=== PATIENT | female | born 1955 | race Caucasian/White ===

== ENCOUNTER → 2020-03-13 10:15 | Outpatient (BNVA) | payer OTHER, SELFPAY | PROVIDERS: PCP Internal Medicine; Visit Provider Surgery | DX: Z01.818 Encounter for other preprocedural examination (principal); E66.01 Morbid (severe) obesity due to excess calories; Z68.42 Body mass index [BMI] 45.0-49.9, adult; R06.02 Shortness of breath | CPT/HCPCS: 99202 ==

== ENCOUNTER 2020-03-19 07:33 | Outpatient (REF) | payer OTHER, SELFPAY ==
--- NOTE | ~2020-03-19 | XR_ITS ---
EXAMINATION: XR CHEST CLINICAL INFORMATION: R06.02 - Shortness of breath COMPARISON: None TECHNIQUE: 2 views of the chest were obtained. FINDINGS: There is fine linear scar versus disc atelectasis left lateral base at costophrenic angle. The lungs otherwise clear. There is no hyperinflation. The vascularity is normal. There is no airspace consolidation or groundglass opacity or effusion. The heart is normal in size and the hilar and mediastinal contours are normal. Bony structures show dextrocurvature thoracolumbar spine with mild multilevel degenerative changes. There are surgical clips right upper quadrant abdomen likely from prior cholecystectomy. XR/XR chest 2V IMPRESSION: 1. Fine linear scar versus disc atelectasis left lateral base. 2. Lungs otherwise clear. Vascularity unremarkable.
--- NOTE | 2020-03-19 07:57 | ECG_ITS ---
Test Reason : SOB Blood Pressure : / mmHG Vent. Rate : 071 BPM Atrial Rate : 071 BPM P-R Int : 148 ms QRS Dur : 092 ms QT Int : 392 ms P-R-T Axes : 059 003 002 degrees QTc Int : 425 ms Normal sinus rhythm Normal ECG No previous ECGs available Referred By: Luz Brewer Electronically Signed By:YOANNA WATSON MD
[2020-03-19 08:09] LABS: MANUAL DIFF FLAG NO
[2020-03-19 08:21] LABS: Basophils Percent Auto 0.7 % (0-2); Eosinophils Absolute Auto 0.1 X10*3/uL (0.0-0.4); Eosinophils Percent Auto 1.3 % (0-4); Hematocrit 42.5 % (37-47); Hemoglobin 14.1 g/dl (12.0-16.0); Imm Gran Abs Auto 0.01 X10*3/uL (0.00-0.03); Imm Gran Pct Auto 0.2 % (0.0-0.4); Lymphocytes Absolute Auto 2.3 X10*3/uL (1.2-4.9); Lymphocytes Percent Auto 43.1 % (20-40); Mean Corpuscular HGB Conc 33.2 g/dl (31.0-35.0); Mean Corpuscular Volume 87.3 fL (80-98); Mean Platelet Volume 9.9 fL (9.4-12.3); Monocytes Absolute Auto 0.4 X10*3/uL (0.1-1.2); Monocytes Percent Auto 7.6 % (2-11); Neutrophils Absolute Auto 2.5 X10*3/uL (2.0-8.3); Neutrophils Percent Auto 47.1 % (45-73); Platelet Count 279 X10*3/uL (160-400); Red Blood Count 4.87 X10*6/uL (4.20-5.50); Red Cell Distribution Width 13.4 % (11.0-16.0); White Blood Count 5.4 X10*3/uL (4.8-10.8)
[2020-03-19 09:04] LABS: Alanine Aminotransferase 27 U/L (0-31); Albumin Level 4.5 g/dL (3.5-5.0); Alkaline Phosphatase 94 U/L (39-117); Anion Gap 11 (12-20); Aspartate Amino Transferase 29 U/L (5-31); Bilirubin Total 0.7 mg/dL (0.0-1.0); Blood Urea Nitrogen 15 mg/dL (9-16); C Reactive Protein 0.54 mg/dL (< or = 0.50); Calcium 9.2 mg/dL (8.4-10.2); Carbon Dioxide 29 mmol/L (22-29); Chloride 106 mmol/L (96-108); Cholesterol 239 mg/dL; Estimated Glomerular Filt Rate > 60; Glucose Fasting 107 mg/dL (60-99); HDL Cholesterol 42 mg/dL; Iron 63 mcg/dL (30-160); LDL Cholesterol Calculated 171 mg/dl; Percent Iron Saturation 16 % (15-50); Potassium 4.4 mmol/L (3.3-5.1); Sodium 142 mmol/L (135-145); Total Iron Binding Capacity 385 mcg/dL (228-428); Total Protein 7.5 g/dL (6.5-8.0); Triglycerides 131 mg/dL; Unsaturated Iron Binding 322 ug/dL
[2020-03-19 09:11] LABS: Vitamin D 25-OH Total 12.2 ng/mL (>30)
[2020-03-19 09:14] LABS: Vitamin B12 268 pg/mL (200-900)
[2020-03-20 11:47] LABS: Calcium (PTHI) 9.5 mg/dL (8.6-10.4); PTHI 109 pg/mL (14-64)
[2020-03-23 06:07] LABS: Vitamin B1 6 nmol/L (8-30)
[2020-03-23 16:47] LABS: Zinc 66 mcg/dL (60-130)
[2020-03-23 21:06] LABS: Vitamin A 39 mcg/dL (38-98)
== END 2020-03-19 07:34 | disposition home or self-care (01) ==
LOC: HO.LAB 07:33
PROVIDERS: PCP Internal Medicine; Visit Provider Surgery
DX: Z01.818 Encounter for other preprocedural examination (principal); E66.01 Morbid (severe) obesity due to excess calories; Z68.42 Body mass index [BMI] 45.0-49.9, adult; R06.02 Shortness of breath
CPT/HCPCS: 36415; 71046; 80053; 80061; 82306; 82607; 83540; 83970; 84425; 84443; 84590; 84630; 85025; 86140; 93005; 99211; Q3014

== ENCOUNTER 2020-03-20 15:04 | Outpatient (REF) | payer OTHER, SELFPAY ==
[2020-03-21 13:51] LABS: H Pylori Breath Test NOT DETECTED (NOT DETECTED)
== END 2020-03-20 15:05 | disposition home or self-care (01) ==
LOC: HO.LNP 15:04
PROVIDERS: Visit Provider Surgery
DX: Z01.818 Encounter for other preprocedural examination (principal)
CPT/HCPCS: 83013

== ENCOUNTER → 2020-04-02 08:20 | Outpatient (BNVA) | payer OTHER, SELFPAY | PROVIDERS: PCP Internal Medicine; Visit Provider Dietitian, Registered ==

== ENCOUNTER → 2020-04-06 08:26 | Outpatient (BNVA) | payer OTHER, SELFPAY | PROVIDERS: PCP Internal Medicine; Visit Provider Dietitian, Registered ==

== ENCOUNTER → 2020-04-16 13:38 | Outpatient (BNVA) | payer OTHER, SELFPAY | PROVIDERS: PCP Internal Medicine; Visit Provider Surgery | DX: E66.01 Morbid (severe) obesity due to excess calories (principal); Z68.41 Body mass index [BMI] 40.0-44.9, adult | CPT/HCPCS: 99212 ==

== ENCOUNTER → 2020-05-04 10:50 | Outpatient (BNVA) | payer OTHER, SELFPAY | PROVIDERS: PCP Internal Medicine; Visit Provider Surgery | DX: E66.01 Morbid (severe) obesity due to excess calories (principal); Z68.41 Body mass index [BMI] 40.0-44.9, adult | CPT/HCPCS: 99212 ==

== ENCOUNTER → 2020-05-08 13:37 | Outpatient (BNVA) | payer OTHER, SELFPAY | PROVIDERS: PCP Internal Medicine; Visit Provider Physician Assistant ==

== ENCOUNTER → 2020-05-19 14:00 | Outpatient (BNVA) | payer OTHER, SELFPAY | PROVIDERS: PCP Internal Medicine; Visit Provider Surgery | DX: Z01.818 Encounter for other preprocedural examination (principal); E66.01 Morbid (severe) obesity due to excess calories; R06.02 Shortness of breath; Z68.41 Body mass index [BMI] 40.0-44.9, adult | CPT/HCPCS: 99212 ==

== ENCOUNTER 2020-05-29 11:42 | Outpatient (REF) | payer OTHER, SELFPAY ==
[2020-05-29 11:59] LABS: Glucose Urine UA NEG (NEG); Leukocyte Esterase Urine NEG (NEG); Nitrite Urine NEG (NEG); Specific Gravity - Urine <= 1.005 (1.005-1.025); Urine Blood NEG (NEG); Urine Ketones NEG (NEG); Urine Protein NEG (NEG-TRACE)
[2020-05-29 12:01] LABS: Appearance Urine HAZY; Color Urine YELLOW
== END 2020-05-29 11:43 | disposition home or self-care (01) ==
LOC: HO.LNP 11:42
PROVIDERS: Visit Provider Surgery
DX: Z01.818 Encounter for other preprocedural examination (principal)
CPT/HCPCS: 81003

== ENCOUNTER 2020-06-03 05:55 | Inpatient (IN) | payer OTHER, SELFPAY ==
[2020-05-19 15:08] LABS: MANUAL DIFF FLAG NO
[2020-05-19 15:10] LABS: Basophils Percent Auto 0.5 % (0-2); Eosinophils Absolute Auto 0.1 X10*3/uL (0.0-0.4); Eosinophils Percent Auto 0.9 % (0-4); Hematocrit 42.9 % (37-47); Hemoglobin 14.9 g/dl (12.0-16.0); Imm Gran Abs Auto 0.01 X10*3/uL (0.00-0.03); Imm Gran Pct Auto 0.1 % (0.0-0.4); Lymphocytes Absolute Auto 2.8 X10*3/uL (1.2-4.9); Lymphocytes Percent Auto 38.3 % (20-40); Mean Corpuscular HGB Conc 34.7 g/dl (31.0-35.0); Mean Corpuscular Hemoglobin 30.1 pg (27.0-33.0); Mean Corpuscular Volume 86.7 fL (80-98); Monocytes Absolute Auto 0.4 X10*3/uL (0.1-1.2); Monocytes Percent Auto 5.9 % (2-11); Neutrophils Percent Auto 54.3 % (45-73); Platelet Count 262 X10*3/uL (160-400); Red Blood Count 4.95 X10*6/uL (4.20-5.50); Red Cell Distribution Width 13.3 % (11.0-16.0); White Blood Count 7.4 X10*3/uL (4.8-10.8)
[2020-05-19 15:16] LABS: INTERNATIONAL NORM RATIO 1.1 (0.9-1.1); Prothrombin Time 12.8 SEC (10.8-13.0)
[2020-05-19 15:27] LABS: Partial Thromboplastin Time 40.3 SEC (24.1-38.0)
[2020-05-19 15:35] LABS: Albumin Level 4.4 g/dL (3.5-5.0); Anion Gap 12 (12-20); Blood Urea Nitrogen 14 mg/dL (9-16); Calcium 9.5 mg/dL (8.4-10.2); Carbon Dioxide 25 mmol/L (22-29); Chloride 108 mmol/L (96-108); Estimated Glomerular Filt Rate > 60; Glucose Random 117 mg/dL (60-115); Potassium 3.9 mmol/L (3.3-5.1); Sodium 141 mmol/L (135-145)
[2020-05-26 10:47] VITALS: BMI 41.3
--- NOTE | 2020-05-31 13:06 | MHC.SHP ---
Pre-Procedural Eval Section B Chief Complaint: obesity Allergies: Allergies Allergy/AdvReac Type Severity Reaction Status Date / Time Iodinated Contrast Media Allergy Severe Shortness Verified 05/19/20 14:31 of Breath sulfamethoxazole Allergy Severe Rash Verified 05/19/20 14:31 [From Bactrim] trimethoprim [From Bactrim] Allergy Severe Rash Verified 05/19/20 14:31 Plan I have reviewed the history and physical and performed a pertinent physical examination on my patient. No changes have occurred unless specified.
[2020-06-03] VITALS (17 sets, daily range): BP systolic 138–188; BP diastolic 64–90; PULSE 71–105; RESP 12–19; TEMP 35.8–36.6; O2SAT 90–100
[2020-06-03] MEDS: Lactated Ringers 1,000 ML 100 ML IVCONT (06:41)
[2020-06-03 06:52] LABS: COVID-19 Test Negative (Negative); IDNOW Serial# 9DD0AD1C
--- NOTE | 2020-06-03 11:48 | P.BOP_ITS ---
Brief Operative Note Date of Service: 06/03/20 Pre-op diagnosis: Morbid obesity, BMI 41.3, hypertension, hypercholesterolemia Post-op diagnosis: same Procedure: Laparoscopic Indra-en-Y gastric bypass with 150 cm Indra limb, intraoperative endoscopy, and Alonzo block Implants: None Surgeon: Luz Brewer MD Anesthesia: GETA Dispatcher Radioactive Waste Disposal: Larisa Solorzano Estimated blood loss (mL): 5 Pathology: none sent Condition: stable Disposition: PACU
--- NOTE | 2020-06-03 11:50 | P.OP_ITS ---
Operative Note Operative Note Date of Service: 06/03/20 Narrative: Patient was brought into the operating room and placed on the operating room table in the supine position. General anesthesia was induced. Normal DVT prophylaxis was instituted and the patient received 2 grams of cefotetan preoperatively. The abdomen was then prepped and draped in the normal sterile fashion. A safety time-out was performed. A mixture of 1% lidocaine with epinephrine and ?% Marcaine plain was used to an esthetize the planned incision site in the left upper quadrant. A #11 scalpel was used to make a 5 mm left upper quadrant transverse incision through which a veress needle was placed. Three pops were heard going through the fascia. A saline drop test was used to confirm that the veress needle was intraabdominal. An optiview technique was then used to place a 5mm port in the left upper quadrant. A 5 mm 30 degree laproscope was then placed through this port and the abdominal cavity was surveyed and there were several dense adhesions of the omentum to the right upper quadrant. We placed an additional 5 mm port in the left upper quadrant lateral to the placement the 1st port. We used a LigaSure device to take down these adhesions on the right upper quadrant. The patient was placed in reverse Trendelenburg positioning. A torey liver retractor was then placed in the subxyphoid position and it was used to hold up the left lobe of the liver to the abdominal wall. This was secured to the bed using the liver retractor boudreaux. A GENE block was then performed for pain control on the right side of the abdomen. A 5 mm port was placed in the right upper quadrant near the falciform ligament. A 12 mm port was then placed in the mid epigastrium. I then performed a GENE block on the left side of the abdomen. We lifted up the transverse colon mesentery and visualized the ligament of Triet z. I then counted 40 cm from the ligament of Trietz and created a small window in the small bowel mesentery. I then stapled across the antimesenteric surface of the small bowel at the at the 40 cm reian. The proximal limb is the biliopancreatic limb and the distal transected bowel will be the flavio limb. I divided the mesentery at the 40 cm reina parallel to the blood vessels in the mesentery for a short distance to be able to bring up the flavio limb to the gastric pouch later. I counted 150 cm from the distally transected bowel and sutured the the flavio limb at 150 cm to the biliopancreatic limb using the endostich and a 2-0 ethibond. I then created 2 enterotomies in the lined up limbs of bowel using the hook cautery. I lengthened the enterotomies using the ligasure device and created a common anastomosis using a 60 mm pool load endostapler. I stapled the common enterotomy transversely to prevent stricture. I then closed the mesenteric defect at the anastomosis with a 2-0 ethibond running endostich suture. I then created the gastric pouch. I divided the adhesions from the previous gastric sleeve. I also evaluated the right and left for and there was no definitive hiatal hernia noted. There was no evidence of hiatal hernia. I gained entry into the lesser sac on the lesser curvature of the stomach by dividing a portion of the pars lucida. I fired a 60 mm purple endostapler transversely across the previous gastric sleeve about 5 cm distal to the GE junction which completed the creation of the new gastric pouch. The staple line was hemostatic. I brought the flavio limb up to the gastric pouch and sutured the flavio limb serosa to the gastric pouch serosa posterior to the transverse staple line using a 2-0 ethibond running stitch using the endostitch. I created a gastrotomy and enterotomy in the adjacent flavoi limb. I lengthened the gastrotomy and enterotomy using the ligasure. I sutured the posterior wall of the stomach and the flavio limb together using a 0 vicryl running stitch. I sutured the anterior wall of the stomach and flavio limb together using another running 0-vicryl stitch. The the anterior serosa of stomach and flavio limb were sutured using a 2-0 ethibond running stitch for a double layer anterior and posterior closure of the gastrojejunostomy. I then clamped across the flavio limb distal to the anastomosis using a fired 60 mm stapler. I flatted the patient and instilled normal saline around the new anastomosis. I per formed an on-talbe endoscopy. The gastric pouch mucosa was pink without any active bleeding the anastomosis was visably patent. I insufflated the gastric pouch and anastomosis. There was no evidence of leak on laparoscopy. I desufflated the gastric pouch and removed the endoscopy. I removed the endostapler from the abdomen and suctioned the fluid from the left upper quadrant. We did not leave a Christiano-Browning drain. We removed the 12 mm port and closed the defect with a 0 maxon suture and laparoscopic suture passer. We instilled local anesthetic into the fascial closure site and tied the suture down at a pressure of 8-10 mm of Hg. I removed the torey liver retractor and the left upper quadrant ports. There was no evidence active bleeding. I removed the last port and laparoscopy. We reapproximated all skin incisions using 4-0 monocryl subcuticular stitch. We cleaned and dried the skin and applied dermabond to all skin incisions. All counts were correct at the end of the case . There were no complications. The patient was awake and in stable condition prior to extubation and transfer to the recovery room.
--- NOTE | 2020-06-03 12:00 | PM.PNGS ---
Subjective Subjective Date of Service: 06/04/20 <Larisa Solorzano PA-C - Last Filed: 06/04/20 16:50> 06/04/20 <Luz Brewer MD - Last Filed: 06/04/20 09:28> Interval history: POD #1: Patient is doing well. Has been ambulating, using the incentive spirometer, and tolerating po liquids. No nausea or abdominal pain. Has some mild incisional pain. <Larisa Solorzano PA-C - Last Filed: 06/04/20 16:50> Pod #1 s/p lap conversion to sleeve gastrectomy to Indra-en-Y gastric bypass. Doing well with the exception of some mild nausea that is improving.. Tolerating stage 2 diet, ambulating in her room. Pain well controlled. Denies vomiting. Vitals and labs reviewed and are within limit for post op day 1. On exam, patient is well appearing, abdomen is soft, nd, mild appropriate incisional tenderness. Incisions c/d/I with dermabond in place. Plan: Patient will be given 4 mg of IV dexamethasone to help with nausea. She will continue stage II diet advanced to stage III diet if her nausea improves. Patient will then likely be discharged home later this morning or this afternoon once she is tolerating stage III diet. <Luz Brewer MD - Last Filed: 06/04/20 09:28> Physical Exam Vital Signs: Vital Signs: Last Vital Signs Temp 97.7 F 06/03/20 11:39 Pulse 97 06/03/20 11:49 Resp 16 06/03/20 11:49 BP 172/90 H 06/03/20 11:49 Pulse Ox 96 06/03/20 11:49 Body Mass Index 41.3 <Larisa Solorzano PA-C - Last Filed: 06/04/20 16:50> Const: General: cooperative, comfortable, no acute distress, alert and awake <Larisa Solorzano PA-C - Last Filed: 06/04/20 16:50> Nutritional Appearance: obese <Larisa Solorzano PA-C - Last Filed: 06/04/20 16:50> GI: Inspection: Yes normal to inspection, Yes incision (normal, slight erythema at site of surgical glue, no tenderness/warmth/drai) and Yes obesity <VERO Lakhani Last Filed: 06/04/20 16:50> Extrem: Right lower extremity: lower leg Details: no tenderness; no edema <VERO Lakhani Last Filed: 06/04/20 16:50> Left lower extremity: lower leg Details: no tenderness; no edema <VERO Lakhani Last Filed: 06/04/20 16:50> Progress Note: A&P Assessment and plan (1) Morbid obesity due to excess calories: Status: Acute <VERO Lakhani Last Filed: 06/04/20 16:50> (2) Intestinal malabsorption following gastrectomy: Status: Acute <VERO Lakhani Last Filed: 06/04/20 16:50> (3) S/P gastric bypass: Status: Acute <VERO Lakhani Last Filed: 06/04/20 16:50> (4) S/P laparoscopic sleeve gastrectomy: Status: Acute <VERO Lakhani Last Filed: 06/04/20 16:50> Assessment and Plan: POD #1: Patient is doing well and will be discharged home today. All the discharge instructions were reviewed with the patient and given in writing. Patient will follow up as scheduled in 2 weeks. <VERO Lakhani Last Filed: 06/04/20 16:50> Fall Risk Details Current Medications: Current Medications Generic Name Dose Route Start Last Admin Trade Name Freq PRN Reason Stop Dose Admin Enalaprilat 0.625 mg 06/03/20 12:00 Enalaprilat Dihydrate 1.25 Mg/Ml Vial IVPUSH Q6H ANDREW Protocol Lactated Ringer's 1,000 mls @ 100 mls/hr 06/03/20 08:00 06/03/20 06:41 Lr IVCONT 100 mls/hr .Q10H ANDREW Administration <VERO Lakhani Last Filed: 06/04/20 16:50> Time Spent With Patient Time: Total time spent is greater than 50% in coordination of care (as documented) at patient's floor/unit and/or counseling patient: <Larisa Solorzano PA-C - Last Filed: 06/04/20 16:50> Time with patient: less than 15 minutes <Luz Brewer MD - Last Filed: 06/04/20 09:28>
--- NOTE | 2020-06-03 12:02 | P.DS_ITS ---
DS: Providers Provider Date of Service: 06/04/20 Date of admission: 06/03/20 05:55 Primary care physician: Gladys Smith MD DS: Diagnosis Discharge Diagnosis (1) Morbid obesity due to excess calories: Status: Acute (2) Intestinal malabsorption following gastrectomy: Status: Acute (3) S/P gastric bypass: Status: Acute (4) S/P laparoscopic sleeve gastrectomy: Status: Acute DS: Medications Discharge Medications Home Medications: Home Medications Medication Instructions Recorded Confirmed amlodipine 10 mg tablet 10 mg PO DAILY 03/13/20 05/26/20 atorvastatin 40 mg tablet 40 mg PO DAILY 03/13/20 05/26/20 citalopram 40 mg tablet 20 mg PO DAILY 03/13/20 05/26/20 clonazepam 1 mg tablet 1 mg PO BEDTIME 03/13/20 05/26/20 cyanocobalamin (vitamin B-12) 500 500 mcg PO DAILY 03/13/20 05/26/20 mcg tablet hydrochlorothiazide 25 mg tablet 25 mg PO DAILY 03/13/20 05/26/20 lisinopril 40 mg tablet 40 mg PO DAILY 03/13/20 05/26/20 multivitamin with minerals-folic 1 tab PO DAILY 03/13/20 05/26/20 acid 80 mcg chewable tablet oxcarbazepine 300 mg tablet 300 mg PO BID 03/13/20 05/26/20 quetiapine 50 mg tablet 50 mg PO BEDTIME 03/13/20 05/26/20 albuterol sulfate 90 mcg/actuation 1 inh INHALATION QID PRN 05/04/20 05/26/20 aerosol inhaler albuterol sulfate 2.5 mg INHALATION Q4H PRN 05/26/20 05/26/20 quetiapine [Seroquel] 200 mg PO BEDTIME 05/26/20 05/26/20 Previous Rx's Medication Instructions Recorded cholecalciferol (vitamin D3) 1,250 1,250 mcg PO QWEEK #4 cap 03/19/20 mcg (50,000 unit) capsule famotidine 20 mg tablet 20 mg PO DAILY #30 tab 05/19/20 ondansetron HCl 4 mg tablet 4 mg PO Q6H PRN #30 tab 05/19/20 DS: Summary Time Spent with Patient Time attestation: Total time spent providing and/or coordinating discharge services: Discharge coordination time: Greater than 30 minutes Physical Exam Vital Signs: Vital Signs: Last Vital Signs Temp 97.7 F 06/03/20 11:39 Pulse 94 06/03/20 11:54 Resp 16 06/03/20 11:54 BP 172/86 H 06/03/20 11:54 Pulse Ox 95 06/03/20 11:54 Body Mass Index 41.3 DS: Data Data Completed and Pending Labs on day of discharge: Laboratory Results - last 24 hr 06/03/20 06:08 COVID-19 ([facility]) Negative COVID-19 Clin Com See Note Discharge Plan Discharge Patient Disposition: Home, Self-Care Discharge Diagnosis: obesity and GERD s/p conversion to LRYGB Referrals: Gladys Smith MD [Primary Care Provider] - 1 Week Discharge Medications: Continued cholecalciferol (vitamin D3) 1,250 mcg (50,000 unit) capsule 1,250 mcg PO QWEEK Qty: 4 RF: 2 albuterol sulfate 2.5 mg /3 mL (0.083 %) solution for nebulization 2.5 mg inhalation Q4H PRN (Reason: Shortness Of Breath) RF: 0 quetiapine [Seroquel] 200 mg Tablet 200 mg PO BEDTIME RF: 0 lisinopril 40 mg tablet 40 mg PO DAILY RF: 0 amlodipine 10 mg tablet 10 mg PO DAILY RF: 0 hydrochlorothiazide 25 mg tablet 25 mg PO DAILY RF: 0 atorvastatin 40 mg tablet 40 mg PO DAILY RF: 0 quetiapine 50 mg tablet 50 mg PO BEDTIME RF: 0 oxcarbazepine 300 mg tablet 300 mg PO BID RF: 0 citalopram 40 mg tablet 20 mg PO DAILY RF: 0 multivit with min-folic acid 80 mcg tablet,chewable 1 tab PO DAILY RF: 0 cyanocobalamin (vitamin B-12) 500 mcg tablet 500 mcg PO DAILY RF: 0 clonazepam 1 mg tablet 1 mg PO BEDTIME RF: 0 albuterol sulfate 90 mcg/actuation HFA aerosol inhaler 1 inh inhalation QID PRN (Reason: Shortness Of Breath) RF: 0 famotidine [Pepcid AC] 20 mg tablet 20 mg PO DAILY Qty: 30 RF: 1 ondansetron HCl [Zofran] 4 mg tablet 4 mg PO Q6H PRN (Reason: nausea and vomiting) Qty: 30 RF: 1 Discharge Orders: Discharge Order (Routine); Ordered 06/04/20 Ordered By: Luz Brewer Diet: other Activity on Discharge: No heavy lifting Stand Alone Forms: Patient Portal Discharge page Activity Restrictions/Additional Instructions: Discharge Instructions 1. Please call your doctor or come back to the emergency room should any new symptoms arise. 2. You will receive a courtesy call from [facility] 24-48 hours after discharge. 3. Activity: abstain from alcohol, practice limited stair climbing, no bending, no driving, no exercise, no illicit substances, no lifting, no sex, no tub bath, no work. 4. Diet: continue stage 3 protein shakes until your [address] Brewer. 5. Dressing Change/Wound Care: Your incision is covered by surgical glue. If the area is tender, you may apply an ice pack for short intervals (no more than 20 minutes on, followed by at least 20 minutes off). Do not apply heat. Do not use creams, lotions, or topical antibiotics unless instructed to do so by your surgeon. These can cause infection or allergic reaction. 6. Call your doctor if: - Your temperature exceeds 101.5 F - You experience excessive pain or swelling - You have an unexpected reaction to medication - You have excessive bleeding - You experience continued vomiting/nausea - Your incision begins to separate - Your incision shows signs of infection such as increased redness, swelling, excessive pain, heat, or drainage (light blood or clear fluid is normal) 7. General instructions: - No lifting greater than 5 lbs for the next 4 weeks. - No driving within 24 hours of taking narcotic pain medications. - If you do not move your bowels in the next 2 days, please take milk of magnesia over the counter. Please follow the post op diet and do not advance your diet until you are seen in the office in about 2 weeks. - Please walk around your home every hour or two to prevent blood clots from forming in your legs. You do not need to wake from sleeping to walk. - Please sleep in a bed or couch to prevent kinking at the hips and knees. - Please take your incentive spirometer (your lung extension service specialist) home with you and use it for the next few days to prevent pneumonias. - You may shower, no hot tubs, baths or swimming pools. - Please call the office with any questions or concerns such as increasing abdominal pain, fever, chills, shortness of breath, chest pain, leg pain or swelling, or redness or drainage from your incisions. - Please stay on stage 3 diet which includes sugar free clear liquids such as ice pops and jello and broth and crystal light. Avoid all carbonation. Please drink 3 protein shakes with at least 25-30 grams of protein daily or 3 of the Celebrate 4:1 shakes which can be purchased in our office. The Celebrate shakes have all of the bariatric vitamins you need if you consume these shakes. If you are drinking other protein shakes, you will need to purchase the Celebrate multivitamins and calcium that we provide in the office (they will provide all the vitamins you need). Please make sure you are consuming at least 40-60 ounces of water in addition to your 3 protein shakes daily. 8. Do not hesitate to contact the office with any questions at . Discharge Summary Date of Service: 06/04/20 Pre-op diagnosis: Morbid obesity, BMI 41.3, hypertension, hypercholesterolemia Post-op diagnosis: same Procedure: Laparoscopic Indra-en-Y gastric bypass with 150 cm Indra limb, intraoperative endoscopy, and Alonzo block Discharge Medications: 1. Simethicone 80mg tablet chewable (Si tablet every 6 hours orally for 7 days, #28, 1 RF) q4h prn gas 2. Acetaminophen 500 mg tablet (Si tablets as needed every 6 hours orally for 30 days, #240, 0 RF) 3. Ondansetron 4 mg tablet disintegrating (Si tablet every 6 hours orally for 7 days, #28, 1 RF) 4. Colace 100 mg capsule (Si capsule twice a day for 30 days, #60, 2 RF) 5. Pepcid 20 mg chewable tablet (Si tablet twice a day for 30 days, #60, 3 RF) Discharge Instructions: The patient should continue on the stage III bariatric diet, which includes 3 protein shakes of at least 20-30g of protein on a daily basis. The patient was encouraged to avoid drinking liquids with her protein shakes. They should wait 30-45 minutes in between her meals and drinking water. She should drink at least 40-60 ounces of water on a daily basis. They should ambulate while at home to avoid any blood clots in her lower extremities. They should call with any questions or concerns such as increase in abdominal pain, persistent nausea, vomiting, redness and drainage from her incisions, fever, chills, shortness of breast, or chest pain beyond what is normal for her. The patient should avoid all heavy lifting greater than 5 pounds for the next 4 weeks. The patient is already scheduled to follow up with me in 2 weeks time, but should call the office with any questions prior to that follow up appointment. The patient should not advance their diet until they are seen in the office for the 2 week appointment. Hospital Course: The patient was admitted after undergoing SURGERY. They were started on stage II (1 oz of fluid every 15 minutes) on POD #0. The next morning they were evaluated and started on stage III diet (protein shakes). All labs were within normal limits. On post-operative day #1 she was feeling better, nausea and epigastric pain improved and they were tolerating stage III bariatric diet well. The patient was discharged home. Discharge Disposition: Home. Care Plan Goals: weight loss management s/p LRYGB Health Concerns: obesity, GERD Plan of Treatment: conversion to LRYGB Assessment: doing well POD #1, discharged home Discharge Date/Time: 06/04/20 13:19
[2020-06-03] MEDS: Famotidine/PF 20 MG/2 ML VIAL IVPUSH ×2 (12:16→20:35)
--- NOTE | 2020-06-03 12:37 | P.CONAN_ITS ---
HPI - Anesthesia Eval Consult details Narrative: Morbid Obesity [facility] Active Problems Active Problems: All Active Problems (Updated 06/03/20 @ 12:01 by Larisa Sloorzano PA-C) S/P laparoscopic sleeve gastrectomy (Acute) S/P gastric bypass (Acute) Intestinal malabsorption following gastrectomy (Acute) Shortness of breath (Acute) Pre-op evaluation (Acute) Morbid obesity due to excess calories (Acute) BMI 45.0-49.9, adult (Acute) Vitamin D deficiency (Acute) Vitamin B1 deficiency (Acute) BMI 40.0-44.9, adult (Acute) Past Medical History Medical History Anxiety Arthritis Asthma COVID-19 vaccine administered Depression HTN (hypertension) Hypercholesterolemia Intestinal malabsorption following gastrectomy Urinary tract infection Uterine anomaly Family History Family History Father Heart problem Heart attack Mother CHF (congestive heart failure) Hypertension High cholesterol Diabetes mellitus Knee problem Sister High cholesterol Hypertension Sister Hypertension Diabetes mellitus COPD (chronic obstructive pulmonary disease) Sister Heart problem Heart attack Diabetes mellitus Hypertension Wheelchair bound Morbidly obese Sister COPD (chronic obstructive pulmonary disease) Son No problems noted. Son Heart problem Heart attack Hypertension Diabetes mellitus Daughter Hypertension Anxiety Surgical History Surgical History Bilateral bunions History of arthroscopy of both knees History of bladder surgery History of repair of hiatal hernia History of sleeve gastrectomy Hx of appendectomy Hx of cholecystectomy Previous back surgery S/P gastric bypass S/P laparoscopic sleeve gastrectomy Social History Social History Household Members: None Housing: Apartment Are you a primary complex care nurse practitioner to a significant other at home: No Do you presently have visiting nurse or other home services: No Alcohol intake: never Smoking Status: Never smoker Use of substances other than those prescribed or required for medical reasons: No Have you been hit, kicked, punched, or otherwise hurt by someone within the past year? If so, by whom?: No Advance Directives Information Provided: No Recently lost weight without trying: No Meds Allergies Allergy/AdvReac Type Severity Reaction Status Date / Time Iodinated Contrast Media Allergy Severe Shortness Verified 05/19/20 14:31 of Breath sulfamethoxazole Allergy Severe Rash Verified 05/19/20 14:31 [From Bactrim] trimethoprim [From Bactrim] Allergy Severe Rash Verified 05/19/20 14:31 hydrocodone Allergy Rash Verified 06/03/20 06:15 Active Medications: Current Medications Generic Name Dose Route Start Last Admin Trade Name Freq PRN Reason Stop Dose Admin Enalaprilat 0.625 mg 06/03/20 12:00 Enalaprilat Dihydrate 1.25 Mg/Ml Vial IVPUSH Q6H ANDREW Protocol Famotidine 20 mg 06/03/20 21:00 06/03/20 12:16 Famotidine/Pf 20 Mg/2 Ml Vial IVPUSH 20 mg BID ANDREW Administration Fentanyl 50 mcg 06/03/20 12:31 Fentanyl Citrate/Pf 100 Mcg/2 Ml Vial IVPUSH Q5M PRN Pain, Moderate (Pain Scale 4-6 Hydromorphone HCl 0.5 mg 06/03/20 12:31 Hydromorphone Hcl 0.5 Mg/0.5 Ml Syringe IVPUSH Q5M PRN Pain, Severe (Pain Scale 7-10) Lactated Ringer's 1,000 mls @ 100 mls/hr 06/03/20 08:00 06/03/20 06:41 Lr IVCONT 100 mls/hr .Q10H ANDREW Administration Acetaminophen 1,000 mg in 100 mls @ 16.7 mls/hr 06/03/20 12:03 06/03/20 12:12 Ofirmev IV 16.7 mls/hr .Q6H ANDREW Administration Promethazine HCl 12.5 mg/ 50.5 mls @ 202 mls/hr 06/03/20 12:31 Sodium Chloride IV ONCE PRN Nausea and Vomiting Ondansetron HCl 4 mg 06/03/20 12:31 Ondansetron Hcl 4 Mg/2 Ml Vial IVPUSH ONCE PRN Nausea and Vomiting Oxycodone HCl 10 mg 06/03/20 12:31 Oxycodone Hcl Immed Release 5 Mg Tablet PO ONCE PRN Pain, Mild (Pain Scale 1-3) Home Medications Medication Instructions Recorded Confirmed Last Taken Type amlodipine 10 mg tablet 10 mg PO DAILY 03/13/20 05/26/20 06/03/20 05:00 History atorvastatin 40 mg tablet 40 mg PO DAILY 03/13/20 05/26/20 Unknown History citalopram 40 mg tablet 20 mg PO DAILY 03/13/20 05/26/20 06/03/20 05:00 History clonazepam 1 mg tablet 1 mg PO BEDTIME 03/13/20 05/26/20 Unknown History cyanocobalamin (vitamin B-12) 500 500 mcg PO DAILY 03/13/20 05/26/20 Unknown History mcg tablet hydrochlorothiazide 25 mg tablet 25 mg PO DAILY 03/13/20 05/26/20 Unknown History lisinopril 40 mg tablet 40 mg PO DAILY 03/13/20 05/26/20 Unknown History multivitamin with minerals-folic 1 tab PO DAILY 03/13/20 05/26/20 Unknown History acid 80 mcg chewable tablet oxcarbazepine 300 mg tablet 300 mg PO BID 03/13/20 05/26/20 06/03/20 05:00 History quetiapine 50 mg tablet 50 mg PO BEDTIME 03/13/20 05/26/20 Unknown History albuterol sulfate 90 mcg/actuation 1 inh INHALATION QID PRN 05/04/20 05/26/20 Unknown History aerosol inhaler albuterol sulfate 2.5 mg INHALATION Q4H PRN 05/26/20 05/26/20 Unknown History quetiapine [Seroquel] 200 mg PO BEDTIME 05/26/20 05/26/20 Unknown History Exam Exam Date and Time: June 03, 2020 1237 Height,Weight and Vital Signs: Height 4 ft 10 in Weight 89.811 kg Last Vital Signs Temp 97.7 F 06/03/20 11:39 Pulse 94 06/03/20 11:54 Resp 16 06/03/20 11:54 BP 172/86 H 06/03/20 11:54 Pulse Ox 95 06/03/20 11:54 Pertinent Lab Results Pertinent Lab Results: Laboratory Tests 05/19/20 05/19/20 05/19/20 15:00 15:00 15:00 WBC 7.4 RBC 4.95 Hgb 14.9 Hct 42.9 MCV 86.7 MCH 30.1 MCHC 34.7 RDW 13.3 Plt Count 262 MPV 10.0 Immature Gran % (Auto) 0.1 Neut % (Auto) 54.3 Lymph % (Auto) 38.3 [place] % (Auto) 5.9 Eos % (Auto) 0.9 Baso % (Auto) 0.5 Lymph # (Auto) 2.8 [place] # (Auto) 0.4 Eos # (Auto) 0.1 Baso # (Auto) 0.0 Abs Immat Gran (auto) 0.01 Absolute Neuts (auto) 4.0 Absolute Nucleated RBC 0.000 Nucleated RBC % (auto) 0.0 PT 12.8 INR 1.1 APTT 40.3 H Sodium 141 Potassium 3.9 Chloride 108 Carbon Dioxide 25 Anion Gap 12 BUN 14 Creatinine 0.71 Estim Creat Clear Calc TNP Estimated GFR > 60 Random Glucose 117 H Calcium 9.5 Albumin 4.4 COVID-19 (SILVIA) COVID-19 testbirds Com Blood Type Antibody Screen 05/19/20 06/03/20 15:00 06:08 WBC RBC Hgb Hct MCV MCH MCHC RDW Plt Count MPV Immature Gran % (Auto) Neut % (Auto) Lymph % (Auto) [place] % (Auto) Eos % (Auto) Baso % (Auto) Lymph # (Auto) [place] # (Auto) Eos # (Auto) Baso # (Auto) Abs Immat Gran (auto) Absolute Neuts (auto) Absolute Nucleated RBC Nucleated RBC % (auto) PT INR APTT Sodium Potassium Chloride Carbon Dioxide Anion Gap BUN Creatinine Estim Creat Clear Calc Estimated GFR Random Glucose Calcium Albumin COVID-19 (SILVIA) Negative COVID-19 [facility] Com See Note Blood Type O Positive Antibody Screen NEGATIVE Airway Mallampati Class: II TM Dist: >3cm Neck ROM: Full Loose/Missing/Broken Teeth: No Heart: [id number] Lungs: cta b/l Assessment and Plan Assessment Anesthesia Assessment: Anesthesia Plan Discussed, PAT Visit and Chart Reviewed Final Anesthetic Review NPO: Yes ASA Class: III Final Preanesthetic Review: No Changes in Pt Med Stat, Meds/Allgs Chart Reviewed, Consent Obtained/Reviewed and Anes Risks/Benef Reviewed Patient Risk: Intermediate Procedure Risk: Low Assessment/Block/Sedation in SS: Assess/Block/Sedation-SS Anesthetic Plan Anesthetic Plan: GA and Agree w/ Assess. and Plan Disposition: Standard PACU
[2020-06-03] MEDS: Metoclopramide HCl 10 MG/2 ML VIAL IVPUSH (13:26)
[2020-06-03] MEDS: Enalaprilat Dihydrate 1.25 MG/ML VIAL 0.625 MG IVPUSH ×2 (15:34→23:49)
[2020-06-03] MEDS: HYDROmorphone HCl 0.5 MG/0.5 ML SYRINGE 0.25 MG IVPUSH ×2 (17:12→21:17)
[2020-06-03] MEDS: cefoTEtan disodium 2 GM in 0.9 % Sodium Chloride 50 ML IV (20:35)
[2020-06-03] MEDS: ondansetron HCL 4 MG/2 ML VIAL IVPUSH (22:59)
[2020-06-03] MEDS: Lactated Ringers 1,000 ML 125 ML IVCONT (23:00)
[2020-06-04 01:10] VITALS: BP 155/86
[2020-06-04 03:29] VITALS: BP 172/89; PULSE 101; RESP 20; TEMP 36.4; O2SAT 94
[2020-06-04 03:48] VITALS: BP 140/72
[2020-06-04 04:30] LABS: MANUAL DIFF FLAG NO
[2020-06-04 04:32] LABS: Basophils Percent Auto 0.2 % (0-2); Hematocrit 40.1 % (37-47); Hemoglobin 13.6 g/dl (12.0-16.0); Imm Gran Abs Auto 0.05 X10*3/uL (0.00-0.03); Imm Gran Pct Auto 0.4 % (0.0-0.4); Lymphocytes Absolute Auto 1.7 X10*3/uL (1.2-4.9); Lymphocytes Percent Auto 15.3 % (20-40); Mean Corpuscular HGB Conc 33.9 g/dl (31.0-35.0); Mean Corpuscular Hemoglobin 29.3 pg (27.0-33.0); Mean Corpuscular Volume 86.4 fL (80-98); Mean Platelet Volume 9.3 fL (9.4-12.3); Monocytes Absolute Auto 0.7 X10*3/uL (0.1-1.2); Monocytes Percent Auto 6.6 % (2-11); Neutrophils Absolute Auto 8.7 X10*3/uL (2.0-8.3); Neutrophils Percent Auto 77.5 % (45-73); Platelet Count 233 X10*3/uL (160-400); Red Blood Count 4.64 X10*6/uL (4.20-5.50); Red Cell Distribution Width 13.3 % (11.0-16.0); White Blood Count 11.3 X10*3/uL (4.8-10.8)
[2020-06-04 04:56] LABS: Anion Gap 13 (12-20); Blood Urea Nitrogen 9 mg/dL (9-16); Calcium 8.5 mg/dL (8.4-10.2); Carbon Dioxide 25 mmol/L (22-29); Chloride 105 mmol/L (96-108); Creatinine Clr Calc Pharmacy 77.4; Estimated Glomerular Filt Rate > 60; Glucose Random 114 mg/dL (60-115); Potassium 3.9 mmol/L (3.3-5.1); Sodium 139 mmol/L (135-145)
[2020-06-04] MEDS: Metoclopramide HCl 10 MG/2 ML VIAL IVPUSH (05:09)
[2020-06-04] MEDS: HYDROmorphone HCl 0.5 MG/0.5 ML SYRINGE 0.25 MG IVPUSH (05:09)
[2020-06-04] MEDS: ondansetron HCL 4 MG/2 ML VIAL IVPUSH (06:18)
[2020-06-04] MEDS: Lactated Ringers 1,000 ML 125 ML IVCONT (06:19)
[2020-06-04 06:22] VITALS: BP 155/64; PULSE 97
[2020-06-04] MEDS: Enalaprilat Dihydrate 1.25 MG/ML VIAL 0.625 MG IVPUSH ×2 (06:22→11:50)
[2020-06-04] MEDS: Famotidine/PF 20 MG/2 ML VIAL IVPUSH (07:14)
[2020-06-04 07:55] VITALS: BP 177/82; PULSE 87; RESP 19; TEMP 37; O2SAT 93
--- NOTE | 2020-06-04 08:59 | HO.POSTANES ---
Post Anesthesia Evaluation Post Anesthesia Evaluation Vital Signs: Vital Signs Temp Pulse Resp BP Pulse Ox 06/04/20 07:55 98.6 F 87 19 177/82 H 93 06/04/20 06:22 97 155/64 H 06/04/20 03:48 140/72 H 06/04/20 03:29 97.6 F 101 H 20 172/89 H 94 06/04/20 01:10 155/86 H 06/03/20 23:46 96.8 F 100 16 188/64 H 99 Anesthesia: General Endotracheal-GETA Mental Status: Awake Nausea/Vomiting: Mild Hydration: Adequate Anesthesia-Related Issues: No Anes. Related Issues
[2020-06-04] MEDS: dexAMETHasone sod phosphate 4 MG/ML VIAL IVPUSH (09:00)
--- NOTE | 2020-06-04 10:20 | MHC.CM.PN ---
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 she lives alone. s/p bariatric surgery.
[2020-06-04 11:42] VITALS: BP 170/81; PULSE 87; RESP 19; TEMP 37.4; O2SAT 94
== END 2020-06-04 13:19 | disposition home or self-care (01) | DRG 621 ==
LOC: HO.SSSA 05:56 → HO.S3 12:15
PROVIDERS: Physician Assistant; Admitting Provider Surgery; PCP Internal Medicine; Visit Provider Surgery
PROC: 0DQ64ZZ Repair Stomach, Percutaneous Endoscopic Approach (ICD-10-PCS; CPT 43771; principal; 2020-06-03 08:00)
DX: E66.01 Morbid (severe) obesity due to excess calories (principal); Z20.822 Contact with and (suspected) exposure to COVID-19; E78.00 Pure hypercholesterolemia, unspecified; I10 Essential (primary) hypertension; K21.9 Gastro-esophageal reflux disease without esophagitis; Z68.41 Body mass index [BMI] 40.0-44.9, adult; Z88.2 Allergy status to sulfonamides; Z98.84 Bariatric surgery status; Z79.899 Other long term (current) drug therapy
CPT/HCPCS: 36415; 80048; 82040; 85025; 85610; 85730; 86850; 86900; 87635; 99024; J0131; J1100; J1170; J2250; J2405; J2550; J2765; J3010

== ENCOUNTER → 2020-06-05 12:01 | Outpatient (BNVA) | payer OTHER, SELFPAY | PROVIDERS: PCP Internal Medicine; Visit Provider Surgery ==

== ENCOUNTER 2020-06-05 15:02 | Inpatient (IN) | payer OTHER, SELFPAY ==
--- NOTE | ~2020-06-05 | CT_ITS ---
EXAMINATION: CT ABDOMEN WITH CONTRAST CLINICAL INFORMATION: Emesis post laparoscopic conversion to gastric bypass COMPARISON: None TECHNIQUE: Contiguous axial thin section helical images of the abdomen were performed following the administration of oral contrast and 85 mL of Omnipaque 350 intravenous contrast. The data set was reformatted in the coronal and sagittal planes and reviewed on an independent workstation. This CT examination was performed using dose optimization techniques as appropriate, variously including the following: *Automated exposure control *Adjustment of mA and/or kV according to patient size (this includes techniques or standardized protocols for targeted exams where dose is matched to indication/reason for exam; i.e. extremities or head) *Use of iterative reconstruction technique DLP: 376 mGy-cm FINDINGS: LUNG BASES: There is subsegmental atelectasis at the left lung base. LIVER, GALLBLADDER, AND BILIARY TREE: There is a calcification high in the dome of the right lobe of the liver. Liver is otherwise unremarkable. The gallbladder has been removed. There is no biliary duct dilatation. PANCREAS: Unremarkable SPLEEN: Unremarkable ADRENAL GLANDS AND KIDNEYS: There is a 2 x 3 cm right renal cyst. BOWEL LOOPS: There are postsurgical changes following gastric bypass. The remaining stomach is slightly distended and filled with fluid. There may be mild wall thickening of the bypassed segment of the stomach and proximal duodenum. There is mild wall thickening of the distal esophagus. There is a tiny focus of free air seen under the right hemidiaphragm. No other evidence of free air is seen. No fluid collection/abscess is seen. There are some loops of fluid-filled small bowel and large bowel suggestive of an ileus. LYMPH NODES: Normal. VASCULAR: Unremarkable. BONES: There are degenerative changes of the spine. There is mild anterior subluxation of L4 with respect L5. CT/CT abdomen w con IMPRESSION: Postoperative changes following gastric bypass. The remaining stomach is slightly distended and filled with fluid. There is question of wall thickening of the bypassed segment of the distal stomach and proximal duodenum. There is wall thickening of the distal thoracic esophagus. There is a tiny focus of free air seen under the right hemidiaphragm, expected post surgery. No ascites or fluid collection seen. Scattered fluid-filled loops of small and large bowel suggestive of an ileus. Right renal cyst.
[2020-06-05 15:00] VITALS: BMI 40.1
[2020-06-05] MEDS: HYDROmorphone HCl 0.5 MG/0.5 ML SYRINGE 0.25 MG IVPUSH (15:16)
[2020-06-05 15:19] VITALS: BP 193/104; PULSE 110; RESP 25; TEMP 37; O2SAT 92
[2020-06-05] MEDS: iohexoL 350 MG/ML 100 ML INFUS..BTL IV (15:41)
[2020-06-05] MEDS: ondansetron HCL 4 MG/2 ML VIAL IVPUSH ×2 (15:50→22:55)
[2020-06-05] MEDS: Lactated Ringers 1,000 ML 125 ML IVCONT (15:50)
--- NOTE | 2020-06-05 16:30 | P.HPGS_ITS ---
History of Present Illness History of Present Illness Date of Service: 06/06/20 Chief complaint: Vomiting s/p conversion LSG to LRYGB Narrative: RYLIE Sabiha Marks is a 64 year old female who underwent GBP on 06/03/2020. Patient was discharged home yesterday and reports she has had vomiting since she went home and severe nausea. Dr. Brewer asked the patient to come in today for IV hydration and for scopolamine patch and other antinausea medications for her postop nausea and vomiting. Of note the patient reports she has had episodes of this before every time she has undergone surgery. She was supposed to have a scopolamine patch at the time of surgery but this was never placed because she was very sedated once she woke up from surgery and scopolamine with caused further sedation. Patient reports she has mild incisional tenderness but no significant abdominal pain. She reports she had a normal soft bowel movement this morning. She has not been able to keep anything down including water or shakes. Vital signs today are within normal range. She has not had a fever or chills or shortness of breath. She does feel weak. Medical History Anxiety Arthritis Asthma COVID-19 vaccine administered Depression HTN (hypertension) Hypercholesterolemia Intestinal malabsorption following gastrectomy Urinary tract infection Uterine anomaly Surgical History Bilateral bunions History of arthroscopy of both knees History of bladder surgery History of repair of hiatal hernia History of sleeve gastrectomy Hx of appendectomy Hx of cholecystectomy Previous back surgery S/P gastric bypass S/P laparoscopic sleeve gastrectomy Family History Father Heart problem Heart attack Mother CHF (congestive heart failure) Hypertension High cholesterol Diabetes mellitus Knee problem Sister High cholesterol Hypertension Sister Hypertension Diabetes mellitus COPD (chronic obstructive pulmonary disease) Sister Heart problem Heart attack Diabetes mellitus Hypertension Wheelchair bound Morbidly obese Sister COPD (chronic obstructive pulmonary disease) Son No problems noted. Son Heart problem Heart attack Hypertension Diabetes mellitus Daughter Hypertension Anxiety Social History Household Members: None Housing: Apartment Alcohol intake: never Smoking Status: Never smoker service: No Current occupational status: unemployed Review of Systems GI Denies constipation, Reports nausea and Reports vomiting Physical Exam Vital Signs:Last Vital Signs Temp 97.1 F 06/05/20 12:04 Pulse 100 06/05/20 12:04 BP 139/84 06/05/20 12:04 Pulse Ox 95 06/05/20 12:04 Body Mass Index 41.3 Const Other: Sitting in the wheelchair dry heaving in to a emesis bag Resp Effort & Inspection: normal respiratory effort Auscultation: clear to auscultation bilaterally Cardio Jugular venous distension: no JVD Heart sounds: S1 normal heart sound present GI Other: Obese soft nondistended mild appropriate incisional tenderness. Incisions have Dermabond in place. There is no evidence of ecchymosis or drainage. No rebound or guarding. Palpation (GI): Soft to palpation and not firm Extrem General: Yes normal to inspection, Yes no clubbing, cyanosis or edema and Yes no calf tenderness PMFSH Past Medical History Medical History (Updated 06/06/20 @ 07:50 by Larisa Solorzano PA-C) Anxiety Arthritis Asthma BMI 40.0-44.9, adult BMI 45.0-49.9, adult COVID-19 vaccine administered Depression Emesis HTN (hypertension) Hypercholesterolemia Intestinal malabsorption following gastrectomy Nausea Pre-op evaluation Shortness of breath Urinary tract infection Uterine anomaly Vitamin B1 deficiency Vitamin D deficiency Family History Family History Father Heart problem Heart attack Mother CHF (congestive heart failure) Hypertension High cholesterol Diabetes mellitus Knee problem Sister High cholesterol Hypertension Sister Hypertension Diabetes mellitus COPD (chronic obstructive pulmonary disease) Sister Heart problem Heart attack Diabetes mellitus Hypertension Wheelchair bound Morbidly obese Sister COPD (chronic obstructive pulmonary disease) Son No problems noted. Son Heart problem Heart attack Hypertension Diabetes mellitus Daughter Hypertension Anxiety Surgical History Surgical History Bilateral bunions History of arthroscopy of both knees History of bladder surgery History of repair of hiatal hernia History of sleeve gastrectomy Hx of appendectomy Hx of cholecystectomy Previous back surgery S/P gastric bypass S/P laparoscopic sleeve gastrectomy Social History Social History Household Members: None Housing: Apartment Alcohol intake: never Smoking Status: Never smoker Currently Displaying Signs/Symptoms of Drug Intoxication Withdrawal: No Advance Directives: No Advance Directives Information Provided: No Do you have thoughts of harming others: None Do you have a plan to hurt others: No Plan service: No Current occupational status: unemployed Meds Allergies Allergy/AdvReac Type Severity Reaction Status Date / Time Iodinated Contrast Media Allergy Severe Shortness Verified 06/05/20 13:09 of Breath sulfamethoxazole Allergy Severe Rash Verified 06/05/20 13:09 [From Bactrim] trimethoprim [From Bactrim] Allergy Severe Rash Verified 06/05/20 13:09 hydrocodone Allergy Rash Verified 06/05/20 13:09 Active Medications: Current Medications Generic Name Dose Route Start Last Admin Trade Name Freq PRN Reason Stop Dose Admin Famotidine 20 mg 06/05/20 21:00 Famotidine/Pf 20 Mg/2 Ml Vial IVPUSH BID ANDREW Hydromorphone HCl 0.25 mg 06/05/20 14:55 06/05/20 15:16 Hydromorphone Hcl 0.5 Mg/0.5 Ml Syringe IVPUSH 0.25 mg Q4H PRN Administration Pain, Severe (Pain Scale 7-10) Lactated Ringer's 1,000 mls @ 125 mls/hr 06/05/20 15:00 06/05/20 15:50 Lr IVCONT 125 mls/hr .Q8H ANDREW Administration Acetaminophen 1,000 mg in 100 mls @ 16.7 mls/hr 06/05/20 15:00 06/05/20 15:50 Ofirmev IV 16.7 mls/hr .Q6H ANDREW Administration Ondansetron HCl 4 mg 06/05/20 15:00 06/05/20 15:50 Ondansetron Hcl 4 Mg/2 Ml Vial IVPUSH 4 mg Q8H ANDREW Administration Sodium Chloride 3 ml 06/05/20 16:00 06/05/20 15:53 0.9 % Sodium Chloride Flush 3 Ml Syringe IVFLUSH Not Given QSHIFT [facility] Home Medications Medication Instructions Recorded Confirmed Last Taken Type amlodipine 10 mg tablet 10 mg PO DAILY 03/13/20 06/05/20 06/03/20 05:00 History atorvastatin 40 mg tablet 40 mg PO DAILY 03/13/20 06/05/20 Unknown History citalopram 40 mg tablet 20 mg PO DAILY 03/13/20 06/05/20 06/03/20 05:00 History clonazepam 1 mg tablet 1 mg PO BEDTIME 03/13/20 06/05/20 Unknown History cyanocobalamin (vitamin B-12) 500 500 mcg PO DAILY 03/13/20 06/05/20 Unknown History mcg tablet hydrochlorothiazide 25 mg tablet 25 mg PO DAILY 03/13/20 06/05/20 Unknown History lisinopril 40 mg tablet 40 mg PO DAILY 03/13/20 06/05/20 Unknown History multivitamin with minerals-folic 1 tab PO DAILY 03/13/20 06/05/20 Unknown History acid 80 mcg chewable tablet oxcarbazepine 300 mg tablet 300 mg PO BID 03/13/20 06/05/20 06/03/20 05:00 History quetiapine 50 mg tablet 50 mg PO BEDTIME 03/13/20 06/05/20 Unknown History albuterol sulfate 90 mcg/actuation 1 inh INHALATION QID PRN 05/04/20 06/05/20 Unknown History aerosol inhaler albuterol sulfate 2.5 mg INHALATION Q4H PRN 05/26/20 06/05/20 Unknown History quetiapine [Seroquel] 200 mg PO BEDTIME 05/26/20 06/05/20 Unknown History Physical Exam Vital Signs: Vital Signs: Last Vital Signs Temp 98.6 F 06/05/20 15:19 Pulse 110 H 06/05/20 15:19 Resp 25 H 06/05/20 15:19 BP 193/104 H 06/05/20 15:19 Pulse Ox 92 06/05/20 15:19 Body Mass Index 40.1 Assessment and Plan (1) S/P gastric bypass: Status: Acute (2) Intestinal malabsorption following gastrectomy: Status: Acute (3) Morbid obesity due to excess calories: Status: Acute (4) Emesis: Status: Acute (5) Nausea: Status: Acute This is a 64-year-old lady on postoperative day 2. Status post revision of sleeve gastrectomy to Indra-en-Y gastric bypass with significant postop nausea and vomiting. Patient was brought to the observation unit for IV hydration and anti-emetics. She then continued to have bouts of emesis, and voited a total of 70 cc of brown liquid. Decision made to admit and get CT scan.
--- NOTE | 2020-06-05 16:30 | PM.PNGS ---
Subjective Subjective Date of Service: 06/06/20 Interval history: Nausea improved today but still present along with abdominal pain and headache. Had soft BM this morning. Physical Exam Vital Signs: Vital Signs: Last Vital Signs Temp 98.6 F 06/05/20 15:19 Pulse 110 H 06/05/20 15:19 Resp 25 H 06/05/20 15:19 BP 193/104 H 06/05/20 15:19 Pulse Ox 92 06/05/20 15:19 Body Mass Index 40.1 GI: Inspection: Yes obesity and Yes scar (incisions dry, dermabond) Palpation (GI): Soft to palpation, Tenderness to palpation present (GI), no guarding and not rigid Progress Note: A&P Assessment and plan (1) Edema: Status: Acute (2) S/P gastric bypass: Status: Acute (3) Intestinal malabsorption following gastrectomy: Status: Acute (4) Morbid obesity due to excess calories: Status: Acute (5) Emesis: Status: Acute (6) Nausea: Status: Acute Assessment and Plan: - advance diet to bariatric phase 1 - iv toradol 15mg x 1 for h/a - added hydralazine 10mg q6 prn sbp>160 - likely discharge tomorrow - discussed with Dr. Brewer Fall Risk Details Current Medications: Current Medications Generic Name Dose Route Start Last Admin Trade Name Freq PRN Reason Stop Dose Admin Famotidine 20 mg 06/05/20 21:00 Famotidine/Pf 20 Mg/2 Ml Vial IVPUSH BID ANDREW Hydromorphone HCl 0.25 mg 06/05/20 14:55 06/05/20 15:16 Hydromorphone Hcl 0.5 Mg/0.5 Ml Syringe IVPUSH 0.25 mg Q4H PRN Administration Pain, Severe (Pain Scale 7-10) Lactated Ringer's 1,000 mls @ 125 mls/hr 06/05/20 15:00 06/05/20 15:50 Lr IVCONT 125 mls/hr .Q8H ANDREW Administration Acetaminophen 1,000 mg in 100 mls @ 16.7 mls/hr 06/05/20 15:00 06/05/20 15:50 Ofirmev IV 16.7 mls/hr .Q6H ANDREW Administration Ondansetron HCl 4 mg 06/05/20 15:00 06/05/20 15:50 Ondansetron Hcl 4 Mg/2 Ml Vial IVPUSH 4 mg Q8H ANDREW Administration Sodium Chloride 3 ml 06/05/20 16:00 06/05/20 15:53 0.9 % Sodium Chloride Flush 3 Ml Syringe IVFLUSH Not Given QSHIFT ANDREW Time Spent With Patient Time: Total time spent is greater than 50% in coordination of care (as documented) at patient's floor/unit and/or counseling patient: Time with patient: 25 - 35 minutes
[2020-06-05 16:34] LABS: MANUAL DIFF FLAG NO
[2020-06-05 16:38] LABS: Basophils Percent Auto 0.2 % (0-2); Hematocrit 45.5 % (37-47); Hemoglobin 15.8 g/dl (12.0-16.0); Imm Gran Abs Auto 0.04 X10*3/uL (0.00-0.03); Imm Gran Pct Auto 0.4 % (0.0-0.4); Lymphocytes Absolute Auto 1.4 X10*3/uL (1.2-4.9); Mean Corpuscular HGB Conc 34.7 g/dl (31.0-35.0); Mean Corpuscular Hemoglobin 29.8 pg (27.0-33.0); Mean Corpuscular Volume 85.7 fL (80-98); Mean Platelet Volume 10.2 fL (9.4-12.3); Monocytes Absolute Auto 0.6 X10*3/uL (0.1-1.2); Monocytes Percent Auto 5.2 % (2-11); Neutrophils Absolute Auto 8.9 X10*3/uL (2.0-8.3); Neutrophils Percent Auto 81.2 % (45-73); Platelet Count 260 X10*3/uL (160-400); Red Blood Count 5.31 X10*6/uL (4.20-5.50); Red Cell Distribution Width 13.5 % (11.0-16.0); White Blood Count 10.9 X10*3/uL (4.8-10.8)
[2020-06-05] MEDS: Enalaprilat Dihydrate 1.25 MG/ML VIAL IVPUSH ×2 (16:49→22:55)
[2020-06-05] MEDS: LORazepam 2 MG/ML VIAL 0.25 MG IVPUSH (16:49)
[2020-06-05 17:10] LABS: Alanine Aminotransferase 283 U/L (0-31); Albumin Level 4.4 g/dL (3.5-5.0); Alkaline Phosphatase 85 U/L (39-117); Anion Gap 18 (12-20); Aspartate Amino Transferase 161 U/L (5-31); Blood Urea Nitrogen 13 mg/dL (9-16); Calcium 8.6 mg/dL (8.4-10.2); Carbon Dioxide 22 mmol/L (22-29); Chloride 104 mmol/L (96-108); Creatinine Clr Calc Pharmacy 84.2; Estimated Glomerular Filt Rate > 60; Glucose Random 135 mg/dL (60-115); Magnesium 2.3 mg/dL (1.6-2.6); Phosphorus 2.4 mg/dL (2.7-4.5); Potassium 3.5 mmol/L (3.3-5.1); Sodium 140 mmol/L (135-145); Total Protein 7.5 g/dL (6.5-8.0)
[2020-06-05 17:14] VITALS: BP 185/88; PULSE 102; RESP 18
[2020-06-05 18:01] VITALS: BP 175/82; PULSE 108; RESP 17
[2020-06-05 19:09] VITALS: BP 198/105; PULSE 98; RESP 13; TEMP 36.7; O2SAT 96
[2020-06-05] MEDS: Famotidine/PF 20 MG/2 ML VIAL IVPUSH (21:06)
[2020-06-05 22:55] VITALS: BP 181/107; PULSE 86
--- NOTE | 2020-06-05 23:15 | PC.NURSE ---
pt ambulated to with walker and 1 assist.voided and had large liquid brown stool.bp-181/107 iv vasotec given as ordered.resting in comfortably in bed at presetn time
[2020-06-05 23:42] VITALS: BP 142/67; PULSE 74; RESP 19; TEMP 36.4; O2SAT 97
[2020-06-06] VITALS (18 sets, daily range): BP systolic 148–198; BP diastolic 57–97; PULSE 55–96; RESP 18–20; TEMP 35.8–37.3; O2SAT 94–97
[2020-06-06] MEDS: Lactated Ringers 1,000 ML 125 ML IVCONT ×3 (00:44→16:21)
[2020-06-06] MEDS: HYDROmorphone HCl 0.5 MG/0.5 ML SYRINGE 0.25 MG IVPUSH ×4 (02:56→20:45)
[2020-06-06] MEDS: Enalaprilat Dihydrate 1.25 MG/ML VIAL IVPUSH ×4 (04:45→22:57)
[2020-06-06 05:25] LABS: Anion Gap 17 (12-20); Blood Urea Nitrogen 14 mg/dL (9-16); Calcium 8.1 mg/dL (8.4-10.2); Carbon Dioxide 18 mmol/L (22-29); Chloride 109 mmol/L (96-108); Creatinine Clr Calc Pharmacy 88.1; Estimated Glomerular Filt Rate > 60; Glucose Random 105 mg/dL (60-115); Potassium 3.5 mmol/L (3.3-5.1); Sodium 140 mmol/L (135-145)
[2020-06-06] MEDS: ondansetron HCL 4 MG/2 ML VIAL IVPUSH ×3 (06:40→22:57)
[2020-06-06] MEDS: 0.9 % Sodium Chloride Flush 3 ML SYRINGE IVFLUSH ×3 (07:34→23:08)
[2020-06-06] MEDS: Famotidine/PF 20 MG/2 ML VIAL IVPUSH ×2 (08:51→20:32)
[2020-06-06] MEDS: Ketorolac Tromethamine 15 MG/ML VIAL IV (08:52)
--- NOTE | 2020-06-06 08:56 | PM.DS ---
DS: Providers Provider Date of Service: 06/23/20 Date of admission: 06/05/20 15:02 Primary care physician: Unknown Physician DS: Diagnosis Discharge Diagnosis (1) Edema: Status: Acute (2) S/P gastric bypass: Status: Acute Problem details: S/p revision of gastric bypass 06/03/2020 (3) Intestinal malabsorption following gastrectomy: Status: Acute (4) Morbid obesity due to excess calories: Status: Acute (5) Emesis: Status: Acute (6) Nausea: Status: Acute Problem details: resolved this am DS: Medications Discharge Medications Home Medications: Home Medications Medication Instructions Recorded Confirmed amlodipine 10 mg tablet 10 mg PO DAILY 03/13/20 06/05/20 atorvastatin 40 mg tablet 40 mg PO DAILY 03/13/20 06/05/20 citalopram 40 mg tablet 20 mg PO DAILY 03/13/20 06/05/20 clonazepam 1 mg tablet 1 mg PO BEDTIME 03/13/20 06/05/20 cyanocobalamin (vitamin B-12) 500 500 mcg PO DAILY 03/13/20 06/05/20 mcg tablet hydrochlorothiazide 25 mg tablet 25 mg PO DAILY 03/13/20 06/05/20 lisinopril 40 mg tablet 40 mg PO DAILY 03/13/20 06/05/20 multivitamin with minerals-folic 1 tab PO DAILY 03/13/20 06/05/20 acid 80 mcg chewable tablet oxcarbazepine 300 mg tablet 300 mg PO BID 03/13/20 06/05/20 quetiapine 50 mg tablet 50 mg PO BEDTIME 03/13/20 06/05/20 albuterol sulfate 90 mcg/actuation 1 inh INHALATION QID PRN 05/04/20 06/05/20 aerosol inhaler albuterol sulfate 2.5 mg INHALATION Q4H PRN 05/26/20 06/05/20 quetiapine [Seroquel] 200 mg PO BEDTIME 05/26/20 06/05/20 Previous Rx's Medication Instructions Recorded cholecalciferol (vitamin D3) 1,250 1,250 mcg PO QWEEK #4 cap 03/19/20 mcg (50,000 unit) capsule famotidine 20 mg tablet 20 mg PO DAILY #30 tab 05/19/20 ondansetron HCl 4 mg tablet 4 mg PO Q6H PRN #30 tab 05/19/20 DS: Summary Time Spent with Patient Time attestation: Total time spent providing and/or coordinating discharge services: Discharge coordination time: Greater than 30 minutes Physical Exam Vital Signs: Vital Signs: Last Vital Signs Temp 96.5 F L 06/06/20 07:51 Pulse 96 06/06/20 07:51 Resp 18 06/06/20 07:51 BP 159/80 H 06/06/20 07:51 Pulse Ox 96 06/06/20 07:51 Body Mass Index 40.1 DS: Data Data Completed and Pending Completed studies during hospitalization [Text1]: Procedures Bypass Stomach to Jejunum, Percutaneous Endoscopic Approach (06/03/20) Labs on day of discharge: Laboratory Results - last 24 hr 06/05/20 06/05/20 06/06/20 16:29 16:29 04:48 WBC 10.9 H RBC 5.31 Hgb 15.8 Hct 45.5 MCV 85.7 MCH 29.8 MCHC 34.7 RDW 13.5 Plt Count 260 MPV 10.2 Immature Gran % (Auto) 0.4 Neut % (Auto) 81.2 H Lymph % (Auto) 13.0 L [place] % (Auto) 5.2 Eos % (Auto) 0.0 Baso % (Auto) 0.2 Lymph # (Auto) 1.4 [place] # (Auto) 0.6 Eos # (Auto) 0.0 Baso # (Auto) 0.0 Abs Immat Gran (auto) 0.04 H Absolute Neuts (auto) 8.9 H Absolute Nucleated RBC 0.000 Nucleated RBC % (auto) 0.0 Smear Path Review Cancelled Sodium 140 140 Potassium 3.5 3.5 Chloride 104 109 H Carbon Dioxide 22 18 L Anion Gap 18 17 BUN 13 14 Creatinine 0.66 0.63 Estim Creat Clear Calc 84.2 88.1 Estimated GFR > 60 > 60 Random Glucose 135 H 105 Calcium 8.6 8.1 L Phosphorus 2.4 L Magnesium 2.3 Total Bilirubin 1.0 AST 161 H ALT 283 H Alkaline Phosphatase 85 Total Protein 7.5 Albumin 4.4 Discharge Plan Discharge Anticipated Discharge Date/Time: 06/22/20 16:00 Patient Disposition: Home Health Service Discharge Diagnosis: nausea/emesis s/p LRYGB Referrals: Physician,Unknown [Primary Care Provider] - 1 Week Discharge Medications: Continued albuterol sulfate 2.5 mg /3 mL (0.083 %) solution for nebulization 2.5 mg inhalation Q4H PRN (Reason: Shortness Of Breath) RF: 0 quetiapine [Seroquel] 200 mg Tablet 200 mg PO BEDTIME RF: 0 lisinopril 40 mg tablet 40 mg PO DAILY RF: 0 amlodipine 10 mg tablet 10 mg PO DAILY RF: 0 hydrochlorothiazide 25 mg tablet 25 mg PO DAILY RF: 0 atorvastatin 40 mg tablet 40 mg PO DAILY RF: 0 quetiapine 50 mg tablet 50 mg PO BEDTIME RF: 0 oxcarbazepine 300 mg tablet 300 mg PO BID RF: 0 citalopram 40 mg tablet 20 mg PO DAILY RF: 0 clonazepam 1 mg tablet 1 mg PO BEDTIME RF: 0 albuterol sulfate 90 mcg/actuation HFA aerosol inhaler 1 inh inhalation QID PRN (Reason: Shortness Of Breath) RF: 0 famotidine [Pepcid AC] 20 mg tablet 20 mg PO DAILY Qty: 30 RF: 1 ondansetron HCl [Zofran] 4 mg tablet 4 mg PO Q6H PRN (Reason: nausea and vomiting) Qty: 30 RF: 1 Discontinued cholecalciferol (vitamin D3) 1,250 mcg (50,000 unit) capsule 1,250 mcg PO QWEEK Qty: 4 RF: 2 multivit with min-folic acid 80 mcg tablet,chewable 1 tab PO DAILY RF: 0 cyanocobalamin (vitamin B-12) 500 mcg tablet 500 mcg PO DAILY RF: 0 Discharge Orders: Discharge Order (Routine); Ordered 06/23/20 Ordered By: Larisa Solorzano Diet: other Activity on Discharge: No heavy lifting Stand Alone Forms: Patient Portal Discharge page Activity Restrictions/Additional Instructions: 1. Home with VNA services 2. TPN at home with infusion services 3. Needs 1 bottle of Isopure protein water daily by mouth (40g protein, 24 fl oz) OR 2 Celebrate 4:1 shakes in milk (33g protein, 8 oz each) 4. Resume home medications by mouth, spread out medications by at least 15 minutes Inpatient TPN Day #3 currently runnnin over 24 hours. Lipids held (only given on TPN Day #2) because of borderline elevated TG yesterday am. Current TPN: D15 AA5% AT 50CC/HR TO PROVIDE 852KCALS (20KCALS/KG), 60G PROTEIN (1.4G/KG) Discharge Instructions 1. Please call your doctor or come back to the emergency room should any new symptoms arise. 2. You will receive a courtesy call from [facility] 24-48 hours after discharge. 3. Activity: abstain from alcohol, practice limited stair climbing, no bending, no driving, no exercise, no illicit substances, no lifting, no sex, no tub bath, no work. 4. Diet: see above. 5. Dressing Change/Wound Care: Your incision is covered by surgical glue. If the area is tender, you may apply an ice pack for short intervals (no more than 20 minutes on, followed by at least 20 minutes off). Do not apply heat. Do not use creams, lotions, or topical antibiotics unless instructed to do so by your surgeon. These can cause infection or allergic reaction. 6. Call your doctor if: - Your temperature exceeds 101.5 F - You experience excessive pain or swelling - You have an unexpected reaction to medication - You have excessive bleeding - You experience continued vomiting/nausea - Your incision begins to separate - Your incision shows signs of infection such as increased redness, swelling, excessive pain, heat, or drainage (light blood or clear fluid is normal) 7. General instructions: - No lifting greater than 5 lbs for the next 4 weeks. - No driving within 24 hours of taking narcotic pain medications. - If you do not move your bowels in the next 2 days, please take milk of magnesia over the counter. Please follow the post op diet and do not advance your diet until you are seen in the office in about 2 weeks. - Please walk around your home every hour or two to prevent blood clots from forming in your legs. You do not need to wake from sleeping to walk. - Please sleep in a bed or couch to prevent kinking at the hips and knees. - Please take your incentive spirometer (your lung picking crew supervisor) home with you and use it for the next few days to prevent pneumonias. - You may shower, no hot tubs, baths or swimming pools. - Please call the office with any questions or concerns such as increasing abdominal pain, fever, chills, shortness of breath, chest pain, leg pain or swelling, or redness or drainage from your incisions. - Please stay on stage 3 diet which includes sugar free clear liquids such as ice pops and jello and broth and crystal light. Avoid all carbonation. Please drink 3 protein shakes with at least 25-30 grams of protein daily or 3 of the Celebrate 4:1 shakes which can be purchased in our office. The Celebrate shakes have all of the bariatric vitamins you need if you consume these shakes. If you are drinking other protein shakes, you will need to purchase the Celebrate multivitamins and calcium that we provide in the office (they will provide all the vitamins you need). Please make sure you are consuming at least 40-60 ounces of water in addition to your 3 protein shakes daily. 8. Do not hesitate to contact the office with any questions at . Discharge Summary Date of Service: 06/23/20 Admitting Diagnosis: nausea and emesis s/p lap conversion to GBP Discharge Diagnosis: same, s/p balloon dilation during EGD Procedure Performed: PICC LINE PLACED 06/18/20, EGD with balloon dilation DOS 06/22/20 Discharge Medications: (already has at home from GBP conversion) 1. Simethicone 80mg tablet chewable (Si tablet every 6 hours orally for 7 days, #28, 1 RF) q4h prn gas 2. Acetaminophen 500 mg tablet (Si tablets as needed every 6 hours orally for 30 days, #240, 0 RF) 3. Ondansetron 4 mg tablet disintegrating (Si tablet every 6 hours orally for 7 days, #28, 1 RF) 4. Colace 100 mg capsule (Si capsule twice a day for 30 days, #60, 2 RF) 5. Pepcid 20 mg chewable tablet (Si tablet twice a day for 30 days, #60, 3 RF) Discharge Instructions: See above for diet instructions (Will be on TPN for approximately another week). They should ambulate while at home to avoid any blood clots in her lower extremities. They should call with any questions or concerns such as increase in abdominal pain, persistent nausea, vomiting, redness and drainage from her incisions, fever, chills, shortness of breast, or chest pain beyond what is normal for her. The patient should avoid all heavy lifting greater than 5 pounds for the next 4 weeks. The patient is already scheduled to follow up with me in 2 weeks time, but should call the office with any questions prior to that follow up appointment. The patient should not advance their diet until they are seen in the office for the 2 week appointment. Hospital Course: The patient was re-admitted for nausea and emesis two days after undergoing laparoscopic conversion to GBP. Kept inpatient for 2 weeks since was inable to tolerate po liquids, was on IVF with electrolyte repletion of Mg and K. She was started on TPN after PICC placed. Endoscopy yesterday revealed stricture and balloon dilation done: Brief Operative Note Date of Service: 06/22/20 Pre-op diagnosis: Nausea vomiting status post gastric bypass Post-op diagnosis: other (Anastomotic stenosis) Procedure: Esophagogastrojejunostomy with through the scope balloon dilation of a 8-10 mm balloon and a 10-12 mm balloon The patient was discharged home with VNA services, on TPN and drinking po liquids and taking po medications. Follow up in 1 week in office. Discharge Disposition: Home. Care Plan Goals: post op care s/p conversion to gastric bypass Health Concerns: obesity Plan of Treatment: See discharge instructions. Patient to stay on bariatric phase 3 diet and have follow up appt in office on June 16. Assessment: discharged home after re-admission for continued post operative nausea/vomiting
--- NOTE | 2020-06-06 15:20 | MHC.CM.PN ---
PATIENT LIVES ALONE. PCP IS DR SHAZIA BENITEZ OF [facility]. HER SON IS HER HCP, AND A COPY IS REQUESTED TO BE BROUGHT IN. SHE USES A WALKER IN THE HOME. NO POWERHOUSE HELPER SERVICES. HER MANAGED MEDICARE INSURANCE PROVIDES TWICE WEEKLY RN VISITS. CASE MANAGEMENT FOLLOWING FOR ANY DISCHARGE NEEDS. IMM 06/06 IN CHART
[2020-06-06] MEDS: hydrALAZINE HCl 20 MG/ML VIAL 10 MG IVPUSH ×2 (19:41→21:04)
[2020-06-06] MEDS: LORazepam 2 MG/ML VIAL 0.25 MG IVPUSH (21:11)
[2020-06-07] VITALS (8 sets, daily range): BP systolic 142–181; BP diastolic 60–89; PULSE 66–94; RESP 18–20; TEMP 36.1–37.3; O2SAT 94–96
[2020-06-07] MEDS: Lactated Ringers 1,000 ML 125 ML IVCONT ×3 (00:20→17:17)
[2020-06-07] MEDS: HYDROmorphone HCl 0.5 MG/0.5 ML SYRINGE 0.25 MG IVPUSH ×2 (01:23→18:23)
--- NOTE | 2020-06-07 02:52 | PC.NURSE ---
06/06 1929 bp-180/80.medicated with hydralazine 10mg iv at 1939.bp at 2029 193/80.doris osuna notified.ordered to given another dose of iv hydralazine 10mg now.given at 2099.at 2139 bp-157/68.pt c/o headache medicated with dilaudid 0.25mg iv at 2044 and 124 with some effect.
[2020-06-07] MEDS: LORazepam 2 MG/ML VIAL 0.25 MG IVPUSH ×3 (03:52→11:54)
[2020-06-07] MEDS: Enalaprilat Dihydrate 1.25 MG/ML VIAL IVPUSH (05:13)
[2020-06-07] MEDS: ondansetron HCL 4 MG/2 ML VIAL IVPUSH ×3 (05:13→23:21)
[2020-06-07] MEDS: Famotidine/PF 20 MG/2 ML VIAL IVPUSH ×2 (07:32→20:57)
[2020-06-07] MEDS: 0.9 % Sodium Chloride Flush 3 ML SYRINGE IVFLUSH ×2 (07:32→14:29)
--- NOTE | 2020-06-07 08:01 | PM.PNGS ---
Subjective Subjective Date of Service: 06/07/20 Interval history: Patient reports headache, but improved nausea. Had BM that was brown noticed blood clot when wiped. Had total 8 oz water in 24 hours but states vomited it up last night. BP elevated overnight. Physical Exam Vital Signs: Vital Signs: Last Vital Signs Temp 97.6 F 06/07/20 03:44 Pulse 76 06/07/20 05:13 Resp 19 06/07/20 03:44 BP 181/89 H 06/07/20 05:13 Pulse Ox 95 06/07/20 03:44 Body Mass Index 40.1 Progress Note: A&P Assessment and plan (1) S/P gastric bypass: Status: Acute (2) Nausea: Status: Acute (3) Emesis: Status: Acute Assessment and Plan: PO BP meds added back (lisinopril and amlodipine), d/c enalaprilat IV, continue hydralazine IV prn, hold HCTZ for now. start phase 2, wrote out time increments, 1 oz phase 2 liquid q15 minutes, get to 10 oz by noon and can advance to shakes. Reglan now scheduled instead of prn. Decreased dilaudid frequency. Discussed with Dr. Brewer. Fall Risk Details Current Medications: Current Medications Generic Name Dose Route Start Last Admin Trade Name Freq PRN Reason Stop Dose Admin Amlodipine Besylate 10 mg 06/07/20 09:00 Amlodipine Besylate 10 Mg Tablet PO DAILY ANDRWE Protocol Famotidine 20 mg 06/05/20 21:00 06/07/20 07:32 Famotidine/Pf 20 Mg/2 Ml Vial IVPUSH 20 mg BID ANDREW Administration Hydralazine HCl 10 mg 06/06/20 08:39 06/06/20 21:04 Hydralazine Hcl 20 Mg/Ml Vial IVPUSH 10 mg Q6H PRN Administration SBP >160 Protocol Hydromorphone HCl 0.25 mg 06/05/20 16:36 06/07/20 01:23 Hydromorphone Hcl 0.5 Mg/0.5 Ml Syringe IVPUSH 0.25 mg Q2H PRN Administration Pain, Severe (Pain Scale 7-10) Lactated Ringer's 1,000 mls @ 125 mls/hr 06/05/20 15:00 06/07/20 07:33 Lr IVCONT 125 mls/hr .Q8H ANDREW Administration Acetaminophen 1,000 mg in 100 mls @ 16.7 mls/hr 06/05/20 15:00 06/07/20 03:40 Ofirmev IV 16.7 mls/hr .Q6H ANDREW Administration Lisinopril 40 mg 06/07/20 08:00 Lisinopril 40 Mg Tablet PO DAILY ANDREW Protocol Lorazepam 0.25 mg 06/05/20 16:31 06/07/20 03:52 Lorazepam 2 Mg/Ml Vial IVPUSH 0.25 mg Q6H PRN Administration anxiety/restlessness Metoclopramide HCl 10 mg 06/05/20 16:34 Metoclopramide Hcl 10 Mg/2 Ml Vial IVPUSH Q4H PRN Nausea Ondansetron HCl 4 mg 06/05/20 15:00 06/07/20 05:13 Ondansetron Hcl 4 Mg/2 Ml Vial IVPUSH 4 mg Q8H ANDREW Administration Sodium Chloride 3 ml 06/05/20 16:00 06/07/20 07:32 0.9 % Sodium Chloride Flush 3 Ml Syringe IVFLUSH 3 ml QSHIFT ANDREW Administration Time Spent With Patient Time: Total time spent is greater than 50% in coordination of care (as documented) at patient's floor/unit and/or counseling patient: Time with patient: 25 - 35 minutes
[2020-06-07] MEDS: lisinopriL 40 MG TABLET PO (08:36)
[2020-06-07 09:10] LABS: Anion Gap 15 (12-20); Blood Urea Nitrogen 9 mg/dL (9-16); Calcium 8.5 mg/dL (8.4-10.2); Carbon Dioxide 23 mmol/L (22-29); Chloride 103 mmol/L (96-108); Creatinine Clr Calc Pharmacy 94.2; Estimated Glomerular Filt Rate > 60; Glucose Random 95 mg/dL (60-115); Potassium 3.5 mmol/L (3.3-5.1); Sodium 137 mmol/L (135-145)
[2020-06-07] MEDS: Metoclopramide HCl 10 MG/2 ML VIAL IVPUSH ×2 (09:26→13:30)
[2020-06-07] MEDS: amLODIPine Besylate 10 MG TABLET PO (09:26)
[2020-06-07] MEDS: QUEtiapine Fumarate 200 MG TABLET PO (20:56)
[2020-06-07] MEDS: clonazePAM 1 MG TABLET PO (20:56)
--- NOTE | 2020-06-07 20:56 | P.PNGS_ITS ---
Subjective Subjective Date of Service: 06/08/20 Interval history: Still c/o nausea and burning, tolerated 20 oz po but vomited 100cc at 1830 last night, since then has kept down 10 oz Crystal Light. Vomiting was after shake. Physical Exam 2 Vital Signs: Vital Signs: Last Vital Signs Temp 97.5 F 06/07/20 19:28 Pulse 85 06/07/20 19:28 Resp 20 06/07/20 19:28 BP 160/70 H 06/07/20 19:28 Pulse Ox 94 06/07/20 19:28 Body Mass Index 40.1 Const: General: cooperative, comfortable, no acute distress, alert and awake Nutritional Appearance: obese GI: Other: minimal tenderness epigastrum Inspection: Yes normal to inspection, Yes incision (normal, slight erythema at site of surgical glue, no tenderness/warmth/drai) and Yes obesity Palpation (GI): Soft to palpation, no guarding and not rigid Extrem: Right lower extremity: lower leg Details: no tenderness; no edema Left lower extremity: lower leg Details: no tenderness; no edema Progress Note: A&P Assessment and plan (1) Nausea: Status: Acute (2) S/P gastric bypass: Status: Acute (3) Intestinal malabsorption following gastrectomy: Status: Acute Assessment and Plan: Hospital Day #3, admitted Monday for nausea/vomiting s/p LRYGB. She is 5 days s/p conversion to LRYGB with Dr. Brewer 1. D/C Ensure shake 2. Try Ensure Clear 8g protein water 3. Add phenergan oo q4-5, okay with Seroquel per pharmacist, in addition to ondansetron IV Of note, at 1655 pt still complaining primarily of burning, I d/c'd famotidine, and changed to pantoprazole IV bid and carafate QID Fall Risk Details Current Medications: Current Medications Generic Name Dose Route Start Last Admin Trade Name Freq PRN Reason Stop Dose Admin Amlodipine Besylate 10 mg 06/07/20 09:00 06/07/20 09:26 Amlodipine Besylate 10 Mg Tablet PO 10 mg DAILY ANDREW Administration Protocol Clonazepam 1 mg 06/07/20 21:00 Clonazepam 1 Mg Tablet PO BEDTIME ANDREW Famotidine 20 mg 06/05/20 21:00 06/07/20 07:32 Famotidine/Pf 20 Mg/2 Ml Vial IVPUSH 20 mg BID ANDREW Administration Hydralazine HCl 10 mg 06/06/20 08:39 06/06/20 21:04 Hydralazine Hcl 20 Mg/Ml Vial IVPUSH 10 mg Q6H PRN Administration SBP >160 Protocol Hydromorphone HCl 0.25 mg 06/07/20 08:05 06/07/20 18:23 Hydromorphone Hcl 0.5 Mg/0.5 Ml Syringe IVPUSH 0.25 mg Q4H PRN Administration Pain, Severe (Pain Scale 7-10) Lactated Ringer's 1,000 mls @ 125 mls/hr 06/05/20 15:00 06/07/20 17:17 Lr IVCONT 125 mls/hr .Q8H ANDREW Administration Acetaminophen 1,000 mg in 100 mls @ 16.7 mls/hr 06/05/20 15:00 06/07/20 19:54 Ofirmev IV 16.7 mls/hr .Q6H ANDREW Administration Lisinopril 40 mg 06/07/20 08:00 06/07/20 09:20 Lisinopril 40 Mg Tablet PO Not Given DAILY ANDREW Protocol Metoclopramide HCl 10 mg 06/07/20 09:00 06/07/20 13:30 Metoclopramide Hcl 10 Mg/2 Ml Vial IVPUSH 10 mg Q4H ANDREW Administration Ondansetron HCl 4 mg 06/05/20 15:00 06/07/20 14:29 Ondansetron Hcl 4 Mg/2 Ml Vial IVPUSH 4 mg Q8H ANDREW Administration Quetiapine Fumarate 50 mg 06/08/20 09:00 Quetiapine Fumarate 50 Mg Tablet PO DAILY ANDREW Quetiapine Fumarate 200 mg 06/07/20 21:00 Quetiapine Fumarate 200 Mg Tablet PO BEDTIME ANDREW Sodium Chloride 3 ml 06/05/20 16:00 06/07/20 14:29 0.9 % Sodium Chloride Flush 3 Ml Syringe IVFLUSH 3 ml QSHIFT ANDREW Administration Time Spent With Patient Time: Total time spent is greater than 50% in coordination of care (as documented) at patient's floor/unit and/or counseling patient: Time with patient: 25 - 35 minutes
[2020-06-08] VITALS (13 sets, daily range): BP systolic 131–173; BP diastolic 60–86; PULSE 74–95; RESP 18–20; TEMP 36.2–37.3; O2SAT 92–96; BMI 40.1
[2020-06-08] MEDS: Lactated Ringers 1,000 ML 125 ML IVCONT ×3 (01:09→17:04)
[2020-06-08] MEDS: hydrALAZINE HCl 20 MG/ML VIAL 10 MG IVPUSH (01:52)
[2020-06-08] MEDS: ondansetron HCL 4 MG/2 ML VIAL IVPUSH ×3 (06:17→23:59)
[2020-06-08] MEDS: 0.9 % Sodium Chloride Flush 3 ML SYRINGE IVFLUSH (07:33)
[2020-06-08] MEDS: amLODIPine Besylate 10 MG TABLET PO (08:18)
[2020-06-08] MEDS: QUEtiapine Fumarate 50 MG TABLET PO (08:18)
[2020-06-08] MEDS: lisinopriL 40 MG TABLET PO (08:18)
[2020-06-08] MEDS: Famotidine/PF 20 MG/2 ML VIAL IVPUSH (08:19)
[2020-06-08] MEDS: HYDROmorphone HCl 0.5 MG/0.5 ML SYRINGE 0.25 MG IVPUSH ×4 (08:19→20:49)
[2020-06-08] MEDS: Promethazine HCL 25 MG TABLET PO ×3 (10:41→20:47)
[2020-06-08] MEDS: Pantoprazole Sodium 40 MG/10 ML VIAL IVPUSH (17:02)
[2020-06-08] MEDS: Sucralfate Oral Suspension 1 GM/10 ML ORAL.SUSP PO ×2 (17:02→20:49)
[2020-06-08] MEDS: QUEtiapine Fumarate 200 MG TABLET PO (20:46)
[2020-06-08] MEDS: clonazePAM 1 MG TABLET PO (20:47)
[2020-06-09] VITALS (13 sets, daily range): BP systolic 118–179; BP diastolic 64–84; PULSE 68–89; RESP 16–20; TEMP 36.4–36.9; O2SAT 93–95
[2020-06-09] MEDS: Lactated Ringers 1,000 ML 125 ML IVCONT ×4 (01:21→23:30)
[2020-06-09] MEDS: HYDROmorphone HCl 0.5 MG/0.5 ML SYRINGE 0.25 MG IVPUSH ×5 (04:14→17:21)
[2020-06-09] MEDS: Pantoprazole Sodium 40 MG/10 ML VIAL IVPUSH ×2 (05:53→15:56)
[2020-06-09] MEDS: ondansetron HCL 4 MG/2 ML VIAL IVPUSH ×3 (06:16→21:25)
[2020-06-09] MEDS: Sucralfate Oral Suspension 1 GM/10 ML ORAL.SUSP PO ×2 (07:21→11:10)
[2020-06-09] MEDS: Promethazine HCL 25 MG TABLET PO ×2 (07:21→11:10)
[2020-06-09] MEDS: lisinopriL 40 MG TABLET PO (08:27)
[2020-06-09] MEDS: amLODIPine Besylate 10 MG TABLET PO (08:27)
[2020-06-09] MEDS: QUEtiapine Fumarate 50 MG TABLET PO (08:28)
--- NOTE | 2020-06-09 09:05 | PM.PNGS ---
Subjective Subjective Date of Service: 06/09/20 <Larisa Solorzano PA-C - Last Filed: 06/09/20 11:47> 06/09/20 <Luz Brewer MD - Last Filed: 06/09/20 09:23> Interval history: Reporst epigastric pain and nausea, vomited 8 oz last night after taking sip of Ensure Clear. Had tolerated it better during the day yesterday. Keeping po meds down. Reports burning as well. <Larisa Solorzano PA-C - Last Filed: 06/09/20 11:47> Patient was able to tolerate Ensure Clear and some clear liquids up until 18:00 when she had an episode of vomiting. She has not had anything to drink overnight. Vital signs are within normal limits. Laboratory values are still pending. Patient has not been out of bed and then lying in bed most of the time she has been readmitted. She is encouraged to ambulate in the hallway at least 4 times a day and the set up in the chair to encourage the stomach to empty. <Luz Brewer MD - Last Filed: 06/09/20 09:23> Physical Exam Vital Signs: Vital Signs: Last Vital Signs Temp 98.5 F 06/09/20 07:41 Pulse 68 06/09/20 08:27 Resp 19 06/09/20 08:28 BP 138/64 06/09/20 08:27 Pulse Ox 95 06/09/20 07:41 Body Mass Index 40.1 <Larisa Solorzano PA-C - Last Filed: 06/09/20 11:47> GI: Inspection: Yes normal to inspection, No distended and Yes incision (clean/clear/dry, dermabond intact) <Larisa Solorzano PA-C - Last Filed: 06/09/20 11:47> Palpation (GI): Soft to palpation, nontender, no guarding and not rigid <Larisa Solorzano PA-C - Last Filed: 06/09/20 11:47> Progress Note: A&P Assessment and plan (1) Morbid obesity due to excess calories: Status: Acute <VERO Lakhani Last Filed: 06/09/20 11:47> (2) Intestinal malabsorption following gastrectomy: Status: Acute <Larisa Solorzano PA-C - Last Filed: 06/09/20 11:47> (3) S/P gastric bypass: Status: Acute <Larisa Solorzano PA-C - Last Filed: 06/09/20 11:47> Assessment and Plan: Hospital Day #4 <Larisa Solorzano PA-C - Last Filed: 06/09/20 11:47> This is a 64-year-old lady on postoperative day 6. Status post laparoscopic conversion of gastric sleeve to gastric bypass with postoperative edema at the gastrojejunal anastomosis slowly improving. Patient will continue on Ensure Clear and water only. She was encouraged to ambulate in the hallway at least 3 times a day and facet up in the chair to encourage the stomach to empty. We will also add Protonix and Carafate. Continue current management. <Luz Brewer MD - Last Filed: 06/09/20 09:23> Fall Risk Details Current Medications: Current Medications Generic Name Dose Route Start Last Admin Trade Name Randalq PRN Reason Stop Dose Admin Amlodipine Besylate 10 mg 06/07/20 09:00 06/09/20 08:27 Amlodipine Besylate 10 Mg Tablet PO 10 mg DAILY ANDREW Administration Protocol Clonazepam 1 mg 06/07/20 21:00 06/08/20 20:47 Clonazepam 1 Mg Tablet PO 1 mg BEDTIME ANDREW Administration Hydralazine HCl 10 mg 06/06/20 08:39 06/08/20 01:52 Hydralazine Hcl 20 Mg/Ml Vial IVPUSH 10 mg Q6H PRN Administration SBP >160 Protocol Hydromorphone HCl 0.25 mg 06/07/20 08:05 06/09/20 08:28 Hydromorphone Hcl 0.5 Mg/0.5 Ml Syringe IVPUSH 0.25 mg Q4H PRN Administration Pain, Severe (Pain Scale 7-10) Lactated Ringer's 1,000 mls @ 125 mls/hr 06/05/20 15:00 06/09/20 08:29 Lr IVCONT 125 mls/hr .Q8H ANDREW Administration Acetaminophen 1,000 mg in 100 mls @ 16.7 mls/hr 06/05/20 15:00 06/09/20 07:36 Ofirmev IV Not Given .Q6H ANDREW Lisinopril 40 mg 06/07/20 08:00 06/09/20 08:27 Lisinopril 40 Mg Tablet PO 40 mg DAILY ANDREW Administration Protocol Ondansetron HCl 4 mg 06/05/20 15:00 06/09/20 06:16 Ondansetron Hcl 4 Mg/2 Ml Vial IVPUSH 4 mg Q8H ANDREW Administration Pantoprazole Sodium 40 mg 06/08/20 17:00 06/09/20 05:53 Pantoprazole Sodium 40 Mg/10 Ml Vial IVPUSH 40 mg BID@0630,1630 ANDREW Administration Promethazine HCl 25 mg 06/08/20 10:30 06/09/20 07:21 Promethazine Hcl 25 Mg Tablet PO 25 mg Q4H PRN Administration Nausea and Vomiting Quetiapine Fumarate 50 mg 06/08/20 09:00 06/09/20 08:28 Quetiapine Fumarate 50 Mg Tablet PO 50 mg DAILY ANDREW Administration Quetiapine Fumarate 200 mg 06/07/20 21:00 06/08/20 20:46 Quetiapine Fumarate 200 Mg Tablet PO 200 mg BEDTIME ANDREW Administration Sodium Chloride 3 ml 06/05/20 16:00 06/09/20 07:06 0.9 % Sodium Chloride Flush 3 Ml Syringe IVFLUSH Not Given QSHIFT ANDREW Sucralfate 1 gm 06/08/20 21:00 06/09/20 07:21 Sucralfate Oral Suspension 1 Gm/10 Ml Oral.Susp PO 1 gm QIDACHS ANDREW Administration <Larisa Solorzano PA-C - Last Filed: 06/09/20 11:47> Time Spent With Patient Time: Total time spent is greater than 50% in coordination of care (as documented) at patient's floor/unit and/or counseling patient: <Larisa Solorzano PA-C - Last Filed: 06/09/20 11:47> Time with patient: 15 - 24 minutes <Luz Brewer MD - Last Filed: 06/09/20 09:23>
[2020-06-09 09:24] LABS: Imm Gran Abs Auto 0.02 X10*3/uL (0.00-0.03); Imm Gran Pct Auto 0.3 % (0.0-0.4); MANUAL DIFF FLAG SCAN; Monocytes Percent Auto 7.3 % (2-11); PLT CLUMP 1; SCAN SMEAR FLAG 1
[2020-06-09 09:26] LABS: Basophils Percent Auto 0.1 % (0-2); Eosinophils Absolute Auto 0.1 X10*3/uL (0.0-0.4); Eosinophils Percent Auto 1.8 % (0-4); Hematocrit 38.2 % (37-47); Hemoglobin 13.1 g/dl (12.0-16.0); Lymphocytes Absolute Auto 2.5 X10*3/uL (1.2-4.9); Lymphocytes Percent Auto 34.5 % (20-40); Mean Corpuscular HGB Conc 34.3 g/dl (31.0-35.0); Mean Corpuscular Hemoglobin 29.4 pg (27.0-33.0); Mean Corpuscular Volume 85.7 fL (80-98); Mean Platelet Volume 10.4 fL (9.4-12.3); Monocytes Absolute Auto 0.5 X10*3/uL (0.1-1.2); Platelet Count 229 X10*3/uL (160-400); Red Blood Count 4.46 X10*6/uL (4.20-5.50); Red Cell Distribution Width 13.8 % (11.0-16.0); White Blood Count 7.1 X10*3/uL (4.8-10.8)
[2020-06-09 09:47] LABS: SLIDE REVIEW VERIFIED
[2020-06-09 09:53] LABS: Alanine Aminotransferase 60 U/L (0-31); Albumin Level 3.7 g/dL (3.5-5.0); Alkaline Phosphatase 67 U/L (39-117); Anion Gap 14 (12-20); Aspartate Amino Transferase 21 U/L (5-31); Bilirubin Total 0.8 mg/dL (0.0-1.0); Blood Urea Nitrogen 8 mg/dL (9-16); Calcium 8.4 mg/dL (8.4-10.2); Carbon Dioxide 24 mmol/L (22-29); Chloride 104 mmol/L (96-108); Creatinine Clr Calc Pharmacy 94.2; Estimated Glomerular Filt Rate > 60; Glucose Random 91 mg/dL (60-115); Potassium 3.4 mmol/L (3.3-5.1); Sodium 139 mmol/L (135-145); Total Protein 6.2 g/dL (6.5-8.0)
--- NOTE | 2020-06-09 13:21 | MHC.CM.PN ---
NURSE PAVING CREW FOREMAN NOTE ELECTRONIC MEDICAL RECORD REVIEWED ,PATIENT IS NOW POST OPERATIVE DAY 6 LAPAROSCOPIC CONVERSION OF GASTRIC SLEEVE TO GASTRIC BYPASSSHE CONITNUES WITH IV FLUIDS AT 125 CC , IV ANALGEICS, SHE WILL CONTIONUES ON ENSURE CLEAR AND WATER ONLY SHE WAS ALSO ENCOURAGED TO SIT UOP IN THE CAHIR AND WALK IN THE HALLWAY 4X DAILY, PATIENT IS STILL HAVING SOME NAUSEA AND EMESISI PAVING CREW FOREMAN TO CONTINUE TO FOLLOW FOR ANY CHNAGES IN DISCHARGE NEEDS INITIALLY HOME NO SERVICES
[2020-06-09] MEDS: hydrALAZINE HCl 20 MG/ML VIAL 10 MG IVPUSH (15:56)
[2020-06-09] MEDS: LORazepam 2 MG/ML VIAL 0.25 MG IVPUSH ×2 (16:39→21:25)
[2020-06-10] MEDS: QUEtiapine Fumarate 200 MG TABLET PO (00:13)
[2020-06-10] MEDS: HYDROmorphone HCl 0.5 MG/0.5 ML SYRINGE 0.25 MG IVPUSH ×3 (01:43→16:12)
[2020-06-10 03:39] VITALS: BP 120/78; PULSE 83; RESP 20; TEMP 36.7; O2SAT 96
[2020-06-10 05:19] LABS: Anion Gap 15 (12-20); Blood Urea Nitrogen 6 mg/dL (9-16); Calcium 8.3 mg/dL (8.4-10.2); Carbon Dioxide 23 mmol/L (22-29); Chloride 103 mmol/L (96-108); Creatinine Clr Calc Pharmacy 97.5; Estimated Glomerular Filt Rate > 60; Glucose Random 84 mg/dL (60-115); Sodium 138 mmol/L (135-145)
[2020-06-10] MEDS: Pantoprazole Sodium 40 MG/10 ML VIAL IVPUSH ×2 (05:36→14:48)
--- NOTE | 2020-06-10 07:31 | PM.PNGS ---
Subjective Subjective Date of Service: 06/10/20 <Larisa Solorzano PA-C - Last Filed: 06/10/20 14:05> 06/10/20 <Luz Brewer MD - Last Filed: 06/10/20 10:14> Interval history: After more intolerance to po liquids yeterday and bouts of emesis, we switched back to NPO (except po Seroquel). <Larisa Solorzano PA-C - Last Filed: 06/10/20 14:05> Patient feeling much better today. No further vomiting since being made NPO yesterday afternoon. Patient was up and ambulating in the hallway. She reports her nausea is significantly improved. Pain is well controlled. Vital signs are within normal limits with the exception of some hypertension which is being managed by IV hydralazine and Vasa tech. Patient was able to tolerate her psychiatric medications by mouth without any vomiting. On exam, patient is well appearing lying in bed comfortably in no apparent distress. Examination abdomen shows a soft nondistended mild appropriate incisional tenderness. Incisions are laparoscopic and have Dermabond in place. Extremities are warm well-perfused throughout without edema or tenderness. Assessment and plan: This is a 64-year-old lady on postoperative day 7. Status post conversion of sleeve gastrectomy to Indra-en-Y gastric bypass with postoperative edema at the gastrojejunostomy. We will continue NPO for another day or 2 and monitor patient's nausea and vomiting. If patient continues to do well we will trial stage I bariatric diet again. If patient continues to have edema at the anastomosis she will need TPN and continued NPO status. <Luz Brewer MD - Last Filed: 06/10/20 10:14> Physical Exam Vital Signs: Vital Signs: Last Vital Signs Temp 98.0 F 06/10/20 03:39 Pulse 83 06/10/20 03:39 Resp 20 06/10/20 03:39 BP 120/78 06/10/20 03:39 Pulse Ox 96 06/10/20 03:39 Body Mass Index 40.1 <Larisa Solorzano PA-C - Last Filed: 06/10/20 14:05> Progress Note: A&P Assessment and plan (1) Nausea: Status: Acute <Larisa Solorzano PA-C - Last Filed: 06/10/20 14:05> (2) Emesis: Status: Acute <VERO Lakhani Last Filed: 06/10/20 14:05> (3) S/P gastric bypass: Status: Acute <Larisa Solorzano PA-C - Last Filed: 06/10/20 14:05> Assessment and Plan: Assessment and plan: This is a 64-year-old lady on postoperative day 7. Status post conversion of sleeve gastrectomy to Indra-en-Y gastric bypass with postoperative edema at the gastrojejunostomy. We will continue NPO for another day or 2 and monitor patient's nausea and vomiting. If patient continues to do well we will trial stage I bariatric diet again. If patient continues to have edema at the anastomosis she will need TPN and continued NPO status. <Larisa Solorzano PA-C - Last Filed: 06/10/20 14:05> Fall Risk Details Current Medications: Current Medications Generic Name Dose Route Start Last Admin Trade Name Randalq PRN Reason Stop Dose Admin Amlodipine Besylate 10 mg 06/07/20 09:00 06/09/20 08:27 Amlodipine Besylate 10 Mg Tablet PO 10 mg DAILY ANDREW Administration Protocol Clonazepam 1 mg 06/07/20 21:00 06/09/20 21:30 Clonazepam 1 Mg Tablet PO Not Given BEDTIME ANDREW Hydralazine HCl 10 mg 06/06/20 08:39 06/09/20 15:56 Hydralazine Hcl 20 Mg/Ml Vial IVPUSH 10 mg Q6H PRN Administration SBP >160 Protocol Hydromorphone HCl 0.25 mg 06/07/20 08:05 06/10/20 01:43 Hydromorphone Hcl 0.5 Mg/0.5 Ml Syringe IVPUSH 0.25 mg Q4H PRN Administration Pain, Severe (Pain Scale 7-10) Lactated Ringer's 1,000 mls @ 125 mls/hr 06/05/20 15:00 06/09/20 23:30 Lr IVCONT 125 mls/hr .Q8H ANDREW Administration Acetaminophen 1,000 mg in 100 mls @ 16.7 mls/hr 06/05/20 15:00 06/10/20 03:57 Ofirmev IV 16.7 mls/hr .Q6H ANDREW Administration Promethazine HCl 12.5 mg/ 50.5 mls @ 202 mls/hr 06/09/20 15:11 06/09/20 16:20 Sodium Chloride IV Infused Q4H PRN Infusion Nausea Lisinopril 40 mg 06/07/20 08:00 06/09/20 08:27 Lisinopril 40 Mg Tablet PO 40 mg DAILY ANDREW Administration Protocol Lorazepam 0.25 mg 06/09/20 16:28 06/09/20 21:25 Lorazepam 2 Mg/Ml Vial IVPUSH 0.25 mg Q4H PRN Administration Anxiety Ondansetron HCl 4 mg 06/05/20 15:00 06/09/20 21:25 Ondansetron Hcl 4 Mg/2 Ml Vial IVPUSH 4 mg Q8H ANDREW Administration Pantoprazole Sodium 40 mg 06/08/20 17:00 06/10/20 05:36 Pantoprazole Sodium 40 Mg/10 Ml Vial IVPUSH 40 mg BID@0630,1630 ANDREW Administration Quetiapine Fumarate 50 mg 06/08/20 09:00 06/09/20 08:28 Quetiapine Fumarate 50 Mg Tablet PO 50 mg DAILY ANDREW Administration Quetiapine Fumarate 200 mg 06/07/20 21:00 06/10/20 00:13 Quetiapine Fumarate 200 Mg Tablet PO 200 mg BEDTIME ANDREW Administration Sodium Chloride 3 ml 06/05/20 16:00 06/10/20 01:18 0.9 % Sodium Chloride Flush 3 Ml Syringe IVFLUSH Not Given QSHIFT ANDREW <Larisa Solorzano PA-C - Last Filed: 06/10/20 14:05> Time Spent With Patient Time: Total time spent is greater than 50% in coordination of care (as documented) at patient's floor/unit and/or counseling patient: <Larisa Solorzano PA-C - Last Filed: 06/10/20 14:05> Time with patient: less than 15 minutes <Luz Brewer MD - Last Filed: 06/10/20 10:14>
[2020-06-10] MEDS: ondansetron HCL 4 MG/2 ML VIAL IVPUSH ×3 (07:33→22:25)
[2020-06-10] MEDS: 0.9 % Sodium Chloride Flush 3 ML SYRINGE IVFLUSH (07:35)
[2020-06-10] MEDS: Lactated Ringers 1,000 ML 125 ML IVCONT ×3 (07:35→22:34)
[2020-06-10 07:45] VITALS: BP 174/83; PULSE 72; RESP 19; TEMP 37.5; O2SAT 93
[2020-06-10] MEDS: QUEtiapine Fumarate 50 MG TABLET PO (10:13)
[2020-06-10 10:20] LABS: Glucose, Whole Blood 92 mg/dL (60-115)
[2020-06-10] MEDS: Heparin Sodium,Porcine 5,000 UNIT/ML VIAL 5000 UNIT SUBCUT ×2 (11:13→21:51)
[2020-06-10] MEDS: Potassium Chloride/H20 10 MEQ/100 ML PIGGYBACK 100 MEQ IV ×4 (11:13→14:49)
[2020-06-10 11:35] VITALS: BP 160/72; PULSE 83; RESP 20; TEMP 36.6; O2SAT 92
[2020-06-10 15:29] VITALS: BP 135/65; PULSE 91; RESP 16; TEMP 36.6; O2SAT 92
[2020-06-10 19:46] VITALS: BP 152/70; PULSE 78; RESP 16; TEMP 36.3; O2SAT 94
[2020-06-10] MEDS: LORazepam 2 MG/ML VIAL 0.25 MG IVPUSH (22:31)
[2020-06-10 23:04] VITALS: BP 144/67; PULSE 70; RESP 20; TEMP 36.4; O2SAT 94
[2020-06-11] VITALS (11 sets, daily range): BP systolic 137–174; BP diastolic 56–86; PULSE 74–90; RESP 16–20; TEMP 36.2–36.8; O2SAT 92–98; BMI 40.5
[2020-06-11 05:18] LABS: Anion Gap 15 (12-20); Blood Urea Nitrogen 5 mg/dL (9-16); Calcium 8.2 mg/dL (8.4-10.2); Carbon Dioxide 22 mmol/L (22-29); Chloride 106 mmol/L (96-108); Creatinine Clr Calc Pharmacy 99.2; Estimated Glomerular Filt Rate > 60; Glucose Random 79 mg/dL (60-115); Potassium 3.1 mmol/L (3.3-5.1); Sodium 140 mmol/L (135-145)
[2020-06-11] MEDS: ondansetron HCL 4 MG/2 ML VIAL IVPUSH ×3 (06:10→21:56)
[2020-06-11] MEDS: Pantoprazole Sodium 40 MG/10 ML VIAL IVPUSH ×2 (06:10→17:02)
[2020-06-11] MEDS: Lactated Ringers 1,000 ML 125 ML IVCONT (06:27)
[2020-06-11] MEDS: QUEtiapine Fumarate 50 MG TABLET PO (07:49)
--- NOTE | 2020-06-11 08:24 | PM.PNGS ---
Subjective Subjective Date of Service: 06/11/20 <Larias Solorzano PA-C - Last Filed: 06/11/20 12:35> 06/11/20 <Luz Brewer MD - Last Filed: 06/11/20 09:27> Interval history: POD #1: Patient is doing well. Has been ambulating, using the incentive spirometer, and been NPO since yesterday morning except for po Seroquel and lisinopril. BP stable. Had BMs last night. Walked 7x yesterday. Reports diffuse abdominal pain. <Larisa Solorzano PA-C - Last Filed: 06/11/20 12:35> Patient doing well on postoperative day 8. Status post laparoscopic conversion of sleeve gastrectomy to Indra-en-Y gastric bypass. Patient had several days of nausea and vomiting. She has been NPO for 2 days now with no further vomiting or nausea. Patient has been out of bed and ambulating without difficulty. Her pain is well controlled. She feels much better and is interested in trying liquids once again. Her vital signs are within normal limits. On physical exam abdomen is obese soft nondistended mild appropriate incisional tenderness. Incisions are clean dry intact with Dermabond in place. Assessment and plan: This is a 64-year-old lady on postoperative day 8. Status post conversion of sleeve gastrectomy to Indra-en-Y gastric bypass with evidence slow resolution of the edema at the gastrojejunal anastomosis. We will continue the patient with NPO for today and probably try stage II again tomorrow and she is tolerating stage II may be advanced to stage III and possible discharge home tomorrow. Continue current medications as we already are. Patient was encouraged to continue to ambulate in the hallway and using incentive spirometer. <Luz Brewer MD - Last Filed: 06/11/20 09:27> Physical Exam Vital Signs: Vital Signs: Last Vital Signs Temp 97.3 F 06/11/20 08:00 Pulse 89 06/11/20 08:00 Resp 18 06/11/20 08:00 BP 137/63 06/11/20 08:00 Pulse Ox 96 06/11/20 08:00 Body Mass Index 40.1 <Larisa Solorzano PA-C - Last Filed: 06/11/20 12:35> Const: General: cooperative, comfortable, no acute distress, alert and awake <VERO Lakhani Last Filed: 06/11/20 12:35> Nutritional Appearance: obese <VERO Lakhani Last Filed: 06/11/20 12:35> GI: Inspection: Yes normal to inspection, Yes incision (normal, slight erythema at site of surgical glue, no tenderness/warmth/drai) and Yes obesity <VERO Lakhani Last Filed: 06/11/20 12:35> Extrem: Right lower extremity: lower leg Details: no tenderness; no edema <VERO Lakhani Last Filed: 06/11/20 12:35> Left lower extremity: lower leg Details: no tenderness; no edema <VERO Lakhani Last Filed: 06/11/20 12:35> Progress Note: A&P Assessment and plan (1) S/P gastric bypass: Status: Acute <VERO Lakhani Last Filed: 06/11/20 12:35> (2) Intestinal malabsorption following gastrectomy: Status: Acute <VERO Lakhani Last Filed: 06/11/20 12:35> Assessment and Plan: Keep NPO today, will possibly advance diet tomorrow. Only po med now is Seroquel. Back to IV enalapril, discussing with pharmacy changing dose/frequency. Check BMP and phos and mg tomorrow. Continue ambulating frequently. <VERO Lakhani Last Filed: 06/11/20 12:35> Fall Risk Details Current Medications: Current Medications Generic Name Dose Route Start Last Admin Trade Name Freq PRN Reason Stop Dose Admin Heparin Sodium (Porcine) 5,000 unit 06/10/20 10:15 06/10/20 21:51 Heparin Sodium,Porcine 5,000 Unit/Ml Vial SUBCUT 5,000 unit Q12H ANDREW Administration Hydralazine HCl 10 mg 06/06/20 08:39 06/09/20 15:56 Hydralazine Hcl 20 Mg/Ml Vial IVPUSH 10 mg Q6H PRN Administration SBP >160 Protocol Hydromorphone HCl 0.25 mg 06/07/20 08:05 06/10/20 16:12 Hydromorphone Hcl 0.5 Mg/0.5 Ml Syringe IVPUSH 0.25 mg Q4H PRN Administration Pain, Severe (Pain Scale 7-10) Lactated Ringer's 1,000 mls @ 125 mls/hr 06/05/20 15:00 06/11/20 06:27 Lr IVCONT 125 mls/hr .Q8H ANDREW Administration Acetaminophen 1,000 mg in 100 mls @ 16.7 mls/hr 06/05/20 15:00 06/11/20 07:49 Ofirmev IV 16.7 mls/hr .Q6H ANDREW Administration Promethazine HCl 12.5 mg/ 50.5 mls @ 202 mls/hr 06/09/20 15:11 06/09/20 16:20 Sodium Chloride IV Infused Q4H PRN Infusion Nausea Lisinopril 40 mg 06/07/20 08:00 06/10/20 09:48 Lisinopril 40 Mg Tablet PO Not Given DAILY ANDREW Protocol Lorazepam 0.25 mg 06/09/20 16:28 06/10/20 22:31 Lorazepam 2 Mg/Ml Vial IVPUSH 0.25 mg Q4H PRN Administration Anxiety Ondansetron HCl 4 mg 06/05/20 15:00 06/11/20 06:10 Ondansetron Hcl 4 Mg/2 Ml Vial IVPUSH 4 mg Q8H ANDREW Administration Pantoprazole Sodium 40 mg 06/08/20 17:00 06/11/20 06:10 Pantoprazole Sodium 40 Mg/10 Ml Vial IVPUSH 40 mg BID@0630,1630 ANDREW Administration Quetiapine Fumarate 50 mg 06/08/20 09:00 06/11/20 07:49 Quetiapine Fumarate 50 Mg Tablet PO 50 mg DAILY ANDREW Administration Quetiapine Fumarate 200 mg 06/07/20 21:00 06/10/20 20:53 Quetiapine Fumarate 200 Mg Tablet PO Not Given BEDTIME ANDREW Sodium Chloride 3 ml 06/05/20 16:00 06/11/20 07:50 0.9 % Sodium Chloride Flush 3 Ml Syringe IVFLUSH Not Given QSHIFT ANDREW <Larisa Solorzano PA-C - Last Filed: 06/11/20 12:35> Time Spent With Patient Time: Total time spent is greater than 50% in coordination of care (as documented) at patient's floor/unit and/or counseling patient: <Larisa Solorzano PA-C - Last Filed: 06/11/20 12:35> Time with patient: less than 15 minutes <Luz Brewer MD - Last Filed: 06/11/20 09:27>
[2020-06-11] MEDS: Potassium Chloride/H20 10 MEQ/100 ML PIGGYBACK 100 MEQ IV ×4 (09:58→13:57)
[2020-06-11] MEDS: Heparin Sodium,Porcine 5,000 UNIT/ML VIAL 5000 UNIT SUBCUT ×2 (09:58→21:56)
[2020-06-11] MEDS: Enalaprilat Dihydrate 1.25 MG/ML VIAL 0.625 MG IVPUSH ×3 (09:59→21:55)
[2020-06-11] MEDS: hydrALAZINE HCl 20 MG/ML VIAL 10 MG IVPUSH ×2 (13:09→23:20)
[2020-06-11] MEDS: HYDROmorphone HCl 0.5 MG/0.5 ML SYRINGE 0.25 MG IVPUSH ×2 (13:56→18:45)
[2020-06-11] MEDS: KCl 20 mEq in 5% Dex/0.45% Sod 20 MEQ/1,000 ML IV.SOLN 125 MEQ IVCONT ×2 (15:38→22:59)
[2020-06-11] MEDS: 0.9 % Sodium Chloride Flush 3 ML SYRINGE IVFLUSH (17:02)
[2020-06-11] MEDS: QUEtiapine Fumarate 200 MG TABLET PO (21:55)
[2020-06-12] VITALS (9 sets, daily range): BP systolic 138–189; BP diastolic 62–83; PULSE 71–102; RESP 18–20; TEMP 36.3–37.3; O2SAT 93–96
[2020-06-12] MEDS: HYDROmorphone HCl 0.5 MG/0.5 ML SYRINGE 0.25 MG IVPUSH ×3 (00:40→23:43)
[2020-06-12] MEDS: Enalaprilat Dihydrate 1.25 MG/ML VIAL 0.625 MG IVPUSH ×4 (04:16→22:37)
[2020-06-12 05:52] LABS: Anion Gap 15 (12-20); Blood Urea Nitrogen 3 mg/dL (9-16); Calcium 8.2 mg/dL (8.4-10.2); Carbon Dioxide 22 mmol/L (22-29); Chloride 103 mmol/L (96-108); Creatinine Clr Calc Pharmacy 101.7; Estimated Glomerular Filt Rate > 60; Glucose Fasting 139 mg/dL (60-99); Magnesium 1.6 mg/dL (1.6-2.6); Phosphorus 2.8 mg/dL (2.7-4.5); Potassium 3.2 mmol/L (3.3-5.1); Sodium 137 mmol/L (135-145)
[2020-06-12] MEDS: Pantoprazole Sodium 40 MG/10 ML VIAL IVPUSH ×2 (06:40→16:17)
[2020-06-12] MEDS: ondansetron HCL 4 MG/2 ML VIAL IVPUSH ×3 (06:41→22:37)
[2020-06-12] MEDS: Potassium Chloride/H20 10 MEQ/100 ML PIGGYBACK 100 MEQ IV ×4 (07:52→14:00)
[2020-06-12] MEDS: KCl 20 mEq in 5% Dex/0.45% Sod 20 MEQ/1,000 ML IV.SOLN 125 MEQ IVCONT (07:52)
[2020-06-12] MEDS: QUEtiapine Fumarate 50 MG TABLET PO (07:53)
--- NOTE | 2020-06-12 07:53 | PM.PNGS ---
Subjective Subjective Date of Service: 06/12/20 Interval history: POD #1: Patient is doing well. Kept NPO again yesterday. Has been ambulating, states she was dry heaving yesterday and felt nauseated again. Has been NPO for at least 48 hrs. Physical Exam Vital Signs: Vital Signs: Last Vital Signs Temp 98.0 F 06/12/20 04:08 Pulse 78 06/12/20 04:16 Resp 20 06/12/20 04:08 BP 158/79 H 06/12/20 04:16 Pulse Ox 95 06/12/20 04:08 Body Mass Index 40.5 Const: General: cooperative, comfortable, no acute distress, alert and awake Nutritional Appearance: obese GI: Inspection: Yes normal to inspection, Yes incision (normal, slight erythema at site of surgical glue, no tenderness/warmth/drai) and Yes obesity Extrem: Right lower extremity: lower leg Details: no tenderness; no edema Left lower extremity: lower leg Details: no tenderness; no edema Progress Note: A&P Assessment and plan (1) S/P gastric bypass: Status: Acute (2) Intestinal malabsorption following gastrectomy: Status: Acute (3) Nausea: Status: Acute Assessment and Plan: Hospital Day #7. Seen by Dr. Brewer this morning who started her on po liquids. I reviewed again how to sip very slowly, just a small sip every few minutes. Fall Risk Details Current Medications: Current Medications Generic Name Dose Route Start Last Admin Trade Name Freq PRN Reason Stop Dose Admin Enalaprilat 0.625 mg 06/11/20 10:00 06/12/20 04:16 Enalaprilat Dihydrate 1.25 Mg/Ml Vial IVPUSH 0.625 mg Q6H ANDREW Administration Protocol Heparin Sodium (Porcine) 5,000 unit 06/10/20 10:15 06/11/20 21:56 Heparin Sodium,Porcine 5,000 Unit/Ml Vial SUBCUT 5,000 unit Q12H ANDREW Administration Hydralazine HCl 10 mg 06/06/20 08:39 06/11/20 23:20 Hydralazine Hcl 20 Mg/Ml Vial IVPUSH 10 mg Q6H PRN Administration SBP >160 Protocol Hydromorphone HCl 0.25 mg 06/11/20 12:40 06/12/20 00:40 Hydromorphone Hcl 0.5 Mg/0.5 Ml Syringe IVPUSH 0.25 mg Q6H PRN Administration Pain, Severe (Pain Scale 7-10) Acetaminophen 1,000 mg in 100 mls @ 16.7 mls/hr 06/05/20 15:00 06/12/20 07:52 Ofirmev IV 16.7 mls/hr .Q6H ANDREW Administration Promethazine HCl 12.5 mg/ 50.5 mls @ 202 mls/hr 06/09/20 15:11 06/09/20 16:20 Sodium Chloride IV Infused Q4H PRN Infusion Nausea Potassium Chloride/Dextrose/Sod Cl 20 meq in 1,000 mls @ 125 mls/hr 06/11/20 14:45 06/12/20 07:52 IVCONT 125 mls/hr .Q8H ANDREW Administration Potassium Chloride 10 meq in 100 mls @ 100 mls/hr 06/12/20 06:00 06/12/20 07:52 IV 06/12/20 09:59 100 mls/hr Q1H ANDREW Administration Lorazepam 0.25 mg 06/09/20 16:28 06/10/20 22:31 Lorazepam 2 Mg/Ml Vial IVPUSH 0.25 mg Q4H PRN Administration Anxiety Ondansetron HCl 4 mg 06/05/20 15:00 06/12/20 06:41 Ondansetron Hcl 4 Mg/2 Ml Vial IVPUSH 4 mg Q8H ANDREW Administration Pantoprazole Sodium 40 mg 06/08/20 17:00 06/12/20 06:40 Pantoprazole Sodium 40 Mg/10 Ml Vial IVPUSH 40 mg BID@0630,1630 ANDREW Administration Quetiapine Fumarate 50 mg 06/08/20 09:00 06/12/20 07:53 Quetiapine Fumarate 50 Mg Tablet PO 50 mg DAILY ANDREW Administration Quetiapine Fumarate 200 mg 06/07/20 21:00 06/11/20 21:55 Quetiapine Fumarate 200 Mg Tablet PO 200 mg BEDTIME ANDREW Administration Sodium Chloride 3 ml 06/05/20 16:00 06/11/20 22:18 0.9 % Sodium Chloride Flush 3 Ml Syringe IVFLUSH Not Given QSHIFT ANDREW Time Spent With Patient Time: Total time spent is greater than 50% in coordination of care (as documented) at patient's floor/unit and/or counseling patient: Time with patient: 15 - 24 minutes
--- NOTE | 2020-06-12 08:52 | PM.PNGS ---
Subjective Subjective Date of Service: 06/12/20 Interval history: Patient reports feeling well this morning. She reports having an episode of pain which resolved overnight. She had 1 episode of nausea after her Seroquel dose last evening but has not vomited in 3 days. She has been up and ambulating in the hallway and using the incentive spirometer. She also has been sitting up in a chair. She feels well this morning. I started the patient on stage II diet and she just started this morning and is doing relatively well with it. She would like to have a warm tea. Vital signs are within normal limits. Potassium is still low at 3.2. I did order for more runs of 10 mEq of potassium chloride x4. Patient is also getting potassium chloride and her IV fluids. I will recheck the potassium level this afternoon. Physical Exam Vital Signs: Vital Signs: Last Vital Signs Temp 98.6 F 06/12/20 08:00 Pulse 83 06/12/20 08:00 Resp 19 06/12/20 08:00 BP 149/77 H 06/12/20 08:00 Pulse Ox 96 06/12/20 08:00 Body Mass Index 40.5 Const: General: cooperative, healthy appearing, comfortable and no acute distress GI: Other: Obese, soft, nondistended, mild appropriate incisional tenderness. Incisions are clean dry intact with Dermabond in place. Extrem: General: Yes normal to inspection, Yes no clubbing, cyanosis or edema and Yes no calf tenderness Progress Note: A&P Assessment and plan (1) S/P gastric bypass: Status: Acute Assessment and Plan: This is a 64-year-old lady on postoperative day number 9 status post laparoscopic conversion of sleeve gastrectomy to Indra-en-Y gastric bypass with postoperative edema at the gastrojejunal anastomosis. There is evidence of resolution of this edema as the patient has not had any vomiting or nausea and 3 days. Patient has been started on a stage II bariatric diet. Patient is also being repleted with potassium as her potassium levels have been low. I will recheck the potassium level this afternoon. I will reach evaluate the patient around noon time to see how she is doing with her stage II bariatric diet. If the patient does well all day without any vomiting she will likely be discharged home on clear protein. Patient may need to be kept over the weekend if she is still not doing well with p.o. intake. Fall Risk Details Current Medications: Current Medications Generic Name Dose Route Start Last Admin Trade Name Freq PRN Reason Stop Dose Admin Enalaprilat 0.625 mg 06/11/20 10:00 06/12/20 04:16 Enalaprilat Dihydrate 1.25 Mg/Ml Vial IVPUSH 0.625 mg Q6H ANDREW Administration Protocol Heparin Sodium (Porcine) 5,000 unit 06/10/20 10:15 06/11/20 21:56 Heparin Sodium,Porcine 5,000 Unit/Ml Vial SUBCUT 5,000 unit Q12H ANDREW Administration Hydralazine HCl 10 mg 06/06/20 08:39 06/11/20 23:20 Hydralazine Hcl 20 Mg/Ml Vial IVPUSH 10 mg Q6H PRN Administration SBP >160 Protocol Hydromorphone HCl 0.25 mg 06/11/20 12:40 06/12/20 00:40 Hydromorphone Hcl 0.5 Mg/0.5 Ml Syringe IVPUSH 0.25 mg Q6H PRN Administration Pain, Severe (Pain Scale 7-10) Acetaminophen 1,000 mg in 100 mls @ 16.7 mls/hr 06/05/20 15:00 06/12/20 07:52 Ofirmev IV 16.7 mls/hr .Q6H ANDREW Administration Promethazine HCl 12.5 mg/ 50.5 mls @ 202 mls/hr 06/09/20 15:11 06/09/20 16:20 Sodium Chloride IV Infused Q4H PRN Infusion Nausea Potassium Chloride/Dextrose/Sod Cl 20 meq in 1,000 mls @ 125 mls/hr 06/11/20 14:45 06/12/20 07:52 IVCONT 125 mls/hr .Q8H ANDREW Administration Potassium Chloride 10 meq in 100 mls @ 100 mls/hr 06/12/20 06:00 06/12/20 07:52 IV 06/12/20 09:59 100 mls/hr Q1H ANDREW Administration Lorazepam 0.25 mg 06/09/20 16:28 06/10/20 22:31 Lorazepam 2 Mg/Ml Vial IVPUSH 0.25 mg Q4H PRN Administration Anxiety Ondansetron HCl 4 mg 06/05/20 15:00 06/12/20 06:41 Ondansetron Hcl 4 Mg/2 Ml Vial IVPUSH 4 mg Q8H ANDREW Administration Pantoprazole Sodium 40 mg 06/08/20 17:00 06/12/20 06:40 Pantoprazole Sodium 40 Mg/10 Ml Vial IVPUSH 40 mg BID@0630,1630 ANDREW Administration Quetiapine Fumarate 50 mg 06/08/20 09:00 06/12/20 07:53 Quetiapine Fumarate 50 Mg Tablet PO 50 mg DAILY ANDREW Administration Quetiapine Fumarate 200 mg 06/07/20 21:00 06/11/20 21:55 Quetiapine Fumarate 200 Mg Tablet PO 200 mg BEDTIME ANDREW Administration Sodium Chloride 3 ml 06/05/20 16:00 06/11/20 22:18 0.9 % Sodium Chloride Flush 3 Ml Syringe IVFLUSH Not Given QSHIFT ANDREW Time Spent With Patient Time: Total time spent is greater than 50% in coordination of care (as documented) at patient's floor/unit and/or counseling patient: Time with patient: less than 15 minutes
[2020-06-12] MEDS: Heparin Sodium,Porcine 5,000 UNIT/ML VIAL 5000 UNIT SUBCUT ×2 (11:12→22:36)
--- NOTE | 2020-06-12 11:31 | MHC.CM.PN ---
NURSE CARE MANGER NOTE ELECTRONIC MEDICAL RECORD REVIEWED ALONG WITH CASE DISCUSSED WITH STAFF NURSE AND SURGEON. MET WITH PATIENT REPORTED THAT SHE IS FEELING BETTER ANDHAS BEEN OUT OF BED AND SITTING IN THE CHAIR AND AMBULATING IN THE [place] MORE , SHE WAS STARTED ON STAGE 11 DIET AND WILL CONTINUED TO BE MONITORED FOR INCREASING ABDOMINAL PAIN AND NAUSEA OR EMESIS .PER DOCUMENTATION ;(SHE IS NOT POST OP DAY #9 FROM LAPAROSCOPIC CONVERSION TOOF SLEVE GASTRECTOMY TO JULISSA-EN-Y GASTRIC BYPASS WITH POST OPERATIVE EDEMA AT THR GASTROJEJUMNAL ANASTOMOSIS) DISCHARGE PLAN ANTICIPATE DISCHARGE [place] WITH NO SERVICES (IF THE PHYSICIAN ORDERED [facility] PATIENT IS WILLING TO ACCEPT IT ) PCP DR SHAZIA BENITEZ AT [facility] PATIENT INSTRUCTED TO CALL FOR POST HOSPITLA DISCHAGRE FOLLOW UP BARIATRIC SURGICAL FOLLOW UP PER DISCHAGRE INSTRUCTIONS MEDICARE IMM UPDATED
[2020-06-12] MEDS: hydrALAZINE HCl 20 MG/ML VIAL 10 MG IVPUSH (12:25)
--- NOTE | 2020-06-12 12:29 | PM.DS ---
DS: Providers Provider Date of Service: 06/12/20 Date of admission: 06/05/20 15:02 Primary care physician: Unknown Physician DS: Diagnosis Discharge Diagnosis (1) S/P gastric bypass: Status: Acute (2) Intestinal malabsorption following gastrectomy: Status: Acute (3) Nausea: Status: Acute DS: Medications Discharge Medications Home Medications: Home Medications Medication Instructions Recorded Confirmed amlodipine 10 mg tablet 10 mg PO DAILY 03/13/20 06/05/20 atorvastatin 40 mg tablet 40 mg PO DAILY 03/13/20 06/05/20 citalopram 40 mg tablet 20 mg PO DAILY 03/13/20 06/05/20 clonazepam 1 mg tablet 1 mg PO BEDTIME 03/13/20 06/05/20 cyanocobalamin (vitamin B-12) 500 500 mcg PO DAILY 03/13/20 06/05/20 mcg tablet hydrochlorothiazide 25 mg tablet 25 mg PO DAILY 03/13/20 06/05/20 lisinopril 40 mg tablet 40 mg PO DAILY 03/13/20 06/05/20 multivitamin with minerals-folic 1 tab PO DAILY 03/13/20 06/05/20 acid 80 mcg chewable tablet oxcarbazepine 300 mg tablet 300 mg PO BID 03/13/20 06/05/20 quetiapine 50 mg tablet 50 mg PO BEDTIME 03/13/20 06/05/20 albuterol sulfate 90 mcg/actuation 1 inh INHALATION QID PRN 05/04/20 06/05/20 aerosol inhaler albuterol sulfate 2.5 mg INHALATION Q4H PRN 05/26/20 06/05/20 quetiapine [Seroquel] 200 mg PO BEDTIME 05/26/20 06/05/20 Previous Rx's Medication Instructions Recorded cholecalciferol (vitamin D3) 1,250 1,250 mcg PO QWEEK #4 cap 03/19/20 mcg (50,000 unit) capsule famotidine 20 mg tablet 20 mg PO DAILY #30 tab 05/19/20 ondansetron HCl 4 mg tablet 4 mg PO Q6H PRN #30 tab 05/19/20 DS: Summary Time Spent with Patient Time attestation: Pt underwent a laparoscopic RNYGBP with Dr Brewer on June 03, 2020. She was discharged home on POD #1 tolerating phase diet bariatric diet, but over the next few days had continued emesis and was unable to tolerate aliquid diet. She was readmitted on June 05, [address] scan showed residual edema at the G-J anastomosis without obstruction or stricture. [facility], was made npo x 3 days and then restarted on bariatric phase 2. During her admission her potassium dropped ot 3.0 and was replaced by IV. Her potassium level upon discharge was ____. Total time spent providing and/or coordinating discharge services: Physical Exam Vital Signs: Vital Signs: Last Vital Signs Temp 97.7 F 06/12/20 11:56 Pulse 84 06/12/20 11:56 Resp 20 06/12/20 11:56 BP 189/83 H 06/12/20 11:56 Pulse Ox 94 06/12/20 11:56 Body Mass Index 40.5 DS: Data Data Completed and Pending Completed studies during hospitalization [Text1]: Procedures Bypass Stomach to Jejunum, Percutaneous Endoscopic Approach (06/03/20) Labs on day of discharge: Laboratory Results - last 24 hr 06/12/20 04:40 Sodium 137 Potassium 3.2 L Chloride 103 Carbon Dioxide 22 Anion Gap 15 BUN 3 L Creatinine 0.55 Estim Creat Clear Calc 101.7 Estimated GFR > 60 Fasting Glucose 139 H Calcium 8.2 L Phosphorus 2.8 Magnesium 1.6 Discharge Plan Discharge Anticipated Discharge Date/Time: 06/07/20 16:00 Patient Disposition: Home, Self-Care Discharge Diagnosis: nausea/emesis s/p LRYGB Referrals: Physician,Unknown [Primary Care Provider] - 1 Week Discharge Medications: Continued cholecalciferol (vitamin D3) 1,250 mcg (50,000 unit) capsule 1,250 mcg PO QWEEK Qty: 4 RF: 2 albuterol sulfate 2.5 mg /3 mL (0.083 %) solution for nebulization 2.5 mg inhalation Q4H PRN (Reason: Shortness Of Breath) RF: 0 quetiapine [Seroquel] 200 mg Tablet 200 mg PO BEDTIME RF: 0 lisinopril 40 mg tablet 40 mg PO DAILY RF: 0 amlodipine 10 mg tablet 10 mg PO DAILY RF: 0 hydrochlorothiazide 25 mg tablet 25 mg PO DAILY RF: 0 atorvastatin 40 mg tablet 40 mg PO DAILY RF: 0 quetiapine 50 mg tablet 50 mg PO BEDTIME RF: 0 oxcarbazepine 300 mg tablet 300 mg PO BID RF: 0 citalopram 40 mg tablet 20 mg PO DAILY RF: 0 multivit with min-folic acid 80 mcg tablet,chewable 1 tab PO DAILY RF: 0 cyanocobalamin (vitamin B-12) 500 mcg tablet 500 mcg PO DAILY RF: 0 clonazepam 1 mg tablet 1 mg PO BEDTIME RF: 0 albuterol sulfate 90 mcg/actuation HFA aerosol inhaler 1 inh inhalation QID PRN (Reason: Shortness Of Breath) RF: 0 famotidine [Pepcid AC] 20 mg tablet 20 mg PO DAILY Qty: 30 RF: 1 ondansetron HCl [Zofran] 4 mg tablet 4 mg PO Q6H PRN (Reason: nausea and vomiting) Qty: 30 RF: 1 Diet: other Activity on Discharge: No heavy lifting Stand Alone Forms: Patient Portal Discharge page Care Plan Goals: post op care s/p conversion to gastric bypass Health Concerns: obesity Plan of Treatment: GBP Assessment: discharged home after re-admission for continued post operative nausea/vomiting
[2020-06-12] MEDS: lisinopriL 40 MG TABLET PO (14:00)
[2020-06-12] MEDS: amLODIPine Besylate 10 MG TABLET PO (14:01)
[2020-06-12] MEDS: 0.9 % Sodium Chloride Flush 3 ML SYRINGE IVFLUSH (16:17)
[2020-06-12] MEDS: LORazepam 2 MG/ML VIAL 1 MG IVPUSH (18:06)
[2020-06-12] MEDS: QUEtiapine Fumarate 200 MG TABLET PO (23:36)
[2020-06-13] VITALS (8 sets, daily range): BP systolic 132–173; BP diastolic 60–88; PULSE 73–101; RESP 16–20; TEMP 36.1–36.8; O2SAT 93–97
[2020-06-13] MEDS: KCl 20 mEq in 5% Dex/0.45% Sod 20 MEQ/1,000 ML IV.SOLN 125 MEQ IVCONT ×3 (00:37→18:41)
[2020-06-13] MEDS: Enalaprilat Dihydrate 1.25 MG/ML VIAL 0.625 MG IVPUSH (05:08)
[2020-06-13] MEDS: Pantoprazole Sodium 40 MG/10 ML VIAL IVPUSH ×2 (05:09→15:51)
[2020-06-13] MEDS: ondansetron HCL 4 MG/2 ML VIAL IVPUSH ×3 (05:59→22:08)
[2020-06-13 06:01] LABS: Anion Gap 10 (12-20); Blood Urea Nitrogen 3 mg/dL (9-16); Calcium 8.2 mg/dL (8.4-10.2); Carbon Dioxide 24 mmol/L (22-29); Chloride 108 mmol/L (96-108); Creatinine Clr Calc Pharmacy 90.2; Estimated Glomerular Filt Rate > 60; Glucose Random 126 mg/dL (60-115); Potassium 3.4 mmol/L (3.3-5.1); Sodium 139 mmol/L (135-145)
[2020-06-13] MEDS: lisinopriL 40 MG TABLET PO (08:24)
[2020-06-13] MEDS: QUEtiapine Fumarate 50 MG TABLET PO (08:24)
[2020-06-13] MEDS: amLODIPine Besylate 10 MG TABLET PO (08:24)
--- NOTE | 2020-06-13 08:33 | PM.PNGS ---
Subjective Subjective Date of Service: 06/13/20 Interval history: I feel like a new person today . Patient states she feels great today, no further nausea, abd bloating, states she slept very well and had 1 ounce of po fluid last night. This am she started drinking Propel and has tolerated 11 ounces so far since 5:15 am. She states she feels ready to have protein shakes this am. Physical Exam Vital Signs: Vital Signs: Last Vital Signs Temp 98.1 F 06/13/20 07:41 Pulse 80 06/13/20 07:41 Resp 20 06/13/20 07:41 BP 151/70 H 06/13/20 07:41 Pulse Ox 93 06/13/20 07:41 Body Mass Index 40.5 Const: General: healthy appearing, comfortable and no acute distress Nutritional Appearance: obese Orientation/consciousness: patient oriented x3 GI: Inspection: Yes abdominal wall ecchymosis, No distended and Yes scar (all healing well, clean dry and intact) Palpation (GI): Soft to palpation, not firm, nontender, no guarding, not rigid, no hernias and no masses Neuro: General: patient oriented x3 Extrem: General: No no pedal edema and No no calf tenderness Progress Note: A&P Assessment and plan (1) S/P gastric bypass: Problem details: Pt is POD #10 and HD # 8 for nausea and emesis after RNYGBP. Pt feels much better this am and has tolerated 11 ounces of clear fluid this am. She will be given protein shake this am and continue to drink 1 oz every 15 minutes, if she tolerates it well she will be discharged home today and will follow up in bariatric office on June 16. Edema at G- J junction noted on CT at tiem of admission did not seem to be a factor in patient having gagging yesterday. I witnessed her taking a sip of red fluid and within seconds gagging, hands trembling and spitting up clear fluid. Plan discussed with Dr Brewer who is in agreement. Status: Acute (2) Hypokalemia: Problem details: Potassium level is 3.4 this am and she will receive one dose of 20 meq this am, if she toelrates this she will have one more dose before discharge. Status: Acute (3) Intestinal malabsorption following gastrectomy: Status: Acute (4) Nausea: Problem details: resolved this am Status: Acute (5) HTN (hypertension), benign: Problem details: Contineu home po medications Status: Acute (6) Hypercholesterolemia: Problem details: Restart home medications upon discharge Status: Inactive (7) Anxiety: Problem details: This seems to be have been a significant factor in her inability to tolerate po fluids. Her does of antianxiety meds was increased yesterday and she feels much better today. She will resume her normal antianxiety and depression meds when she is discharged. Status: Inactive Fall Risk Details Current Medications: Current Medications Generic Name Dose Route Start Last Admin Trade Name Freq PRN Reason Stop Dose Admin Amlodipine Besylate 10 mg 06/12/20 12:40 06/13/20 08:24 Amlodipine Besylate 10 Mg Tablet PO 10 mg DAILY ANDREW Administration Protocol Heparin Sodium (Porcine) 5,000 unit 06/10/20 10:15 06/12/20 22:36 Heparin Sodium,Porcine 5,000 Unit/Ml Vial SUBCUT 5,000 unit Q12H ANDREW Administration Hydralazine HCl 10 mg 06/06/20 08:39 06/12/20 12:25 Hydralazine Hcl 20 Mg/Ml Vial IVPUSH 10 mg Q6H PRN Administration SBP >160 Protocol Hydromorphone HCl 0.25 mg 06/11/20 12:40 06/12/20 23:43 Hydromorphone Hcl 0.5 Mg/0.5 Ml Syringe IVPUSH 0.25 mg Q6H PRN Administration Pain, Severe (Pain Scale 7-10) Acetaminophen 1,000 mg in 100 mls @ 16.7 mls/hr 06/05/20 15:00 06/13/20 05:09 Ofirmev IV 16.7 mls/hr .Q6H ANDREW Administration Promethazine HCl 12.5 mg/ 50.5 mls @ 202 mls/hr 06/09/20 15:11 06/12/20 17:01 Sodium Chloride IV Infused Q4H PRN Infusion Nausea Potassium Chloride/Dextrose/Sod Cl 20 meq in 1,000 mls @ 125 mls/hr 06/11/20 14:45 06/13/20 08:25 IVCONT 125 mls/hr .Q8H ANDREW Administration Lisinopril 40 mg 06/12/20 12:40 06/13/20 08:24 Lisinopril 40 Mg Tablet PO 40 mg DAILY ANDREW Administration Protocol Lorazepam 1 mg 06/12/20 17:40 06/12/20 18:06 Lorazepam 2 Mg/Ml Vial IVPUSH 1 mg Q6H PRN Administration Anxiety Ondansetron HCl 4 mg 06/05/20 15:00 06/13/20 05:59 Ondansetron Hcl 4 Mg/2 Ml Vial IVPUSH 4 mg Q8H ANDREW Administration Pantoprazole Sodium 40 mg 06/08/20 17:00 06/13/20 05:09 Pantoprazole Sodium 40 Mg/10 Ml Vial IVPUSH 40 mg BID@0630,1630 ANDREW Administration Quetiapine Fumarate 50 mg 06/08/20 09:00 06/13/20 08:24 Quetiapine Fumarate 50 Mg Tablet PO 50 mg DAILY ANDREW Administration Quetiapine Fumarate 200 mg 06/07/20 21:00 06/12/20 23:36 Quetiapine Fumarate 200 Mg Tablet PO 200 mg BEDTIME ANDREW Administration Sodium Chloride 3 ml 06/05/20 16:00 06/13/20 08:32 0.9 % Sodium Chloride Flush 3 Ml Syringe IVFLUSH Not Given QSHIFT ANDREW Time Spent With Patient Time: Total time spent is greater than 50% in coordination of care (as documented) at patient's floor/unit and/or counseling patient: Time with patient: 25 - 35 minutes
[2020-06-13] MEDS: Potassium Chloride ER 20 MEQ TAB.ER.PRT PO (08:51)
[2020-06-13] MEDS: LORazepam 2 MG/ML VIAL 1 MG IVPUSH ×2 (09:10→15:51)
[2020-06-13] MEDS: Heparin Sodium,Porcine 5,000 UNIT/ML VIAL 5000 UNIT SUBCUT ×2 (10:20→22:08)
[2020-06-13] MEDS: HYDROmorphone HCl 0.5 MG/0.5 ML SYRINGE 0.25 MG IVPUSH (11:35)
--- NOTE | 2020-06-13 13:25 | MHC.CM.PN ---
PLAN IS FOR PATIENT DISCHARGE HOME WITH NO SERVICES. RN AND PATIENT AWARE OF PLAN.
--- NOTE | 2020-06-13 15:08 | PC.NURSE ---
patient takes po k with milk, states she has abdominal pain following. anxious. medicated with iv lorazepam per md request. patient medicated one time for co pain with iv dilaudid with good effect. patient states she vomited , approx 15 cc clear liquid noted in emesis bag patient ambulates in chang, oob to recliner. does IS as directed. voids in bathroom. 2pm, patient taking small amounts of clear liq, denies nausea. denies pain
[2020-06-13] MEDS: 0.9 % Sodium Chloride Flush 3 ML SYRINGE IVFLUSH (15:37)
[2020-06-13] MEDS: QUEtiapine Fumarate 200 MG TABLET PO (22:08)
[2020-06-14] MEDS: KCl 20 mEq in 5% Dex/0.45% Sod 20 MEQ/1,000 ML IV.SOLN 125 MEQ IVCONT ×2 (02:31→11:22)
[2020-06-14 04:00] VITALS: BP 106/64; PULSE 84; RESP 18; TEMP 36.6; O2SAT 97
[2020-06-14] MEDS: ondansetron HCL 4 MG/2 ML VIAL IVPUSH ×3 (06:03→22:29)
[2020-06-14 08:00] VITALS: BP 140/81; PULSE 76; RESP 18; TEMP 36.7; O2SAT 97
[2020-06-14] MEDS: QUEtiapine Fumarate 50 MG TABLET PO (08:50)
[2020-06-14] MEDS: LORazepam 2 MG/ML VIAL 1 MG IVPUSH ×3 (08:50→22:27)
[2020-06-14] MEDS: amLODIPine Besylate 10 MG TABLET PO (08:50)
[2020-06-14] MEDS: 0.9 % Sodium Chloride Flush 3 ML SYRINGE IVFLUSH ×2 (08:50→22:42)
[2020-06-14] MEDS: lisinopriL 40 MG TABLET PO (08:50)
--- NOTE | 2020-06-14 09:52 | P.PNGS_ITS ---
Subjective Subjective Date of Service: 06/14/20 Patient reports: feels better and bowel movement Interval history: Pt was feeling very well yesterday morning, tolerating protein shakes and then had potassium pill cut inot 4 pieces. She felt that the pills were getting stuck and then chugged 4 oz of milk in 30 minutes. After this she states she was full all day and was unable to continue po fluids. No vomiting, and no gagging witnessed. Today, when I came into her room she was ringing her hands, shaking and twisting a paper clip. She states she feels better and has been tolerating protein shakes 1 oz every 15 minutes for the the last 30 minutes - prior to this it was less frequent this am. She had a dose of IV lorazepam and she is clearly much less anxious now that it has taken effect. She prefers warm liquids and I warmed her protein shake for her. She is asking for pain medications for mild incisional pain and another scopalomine patche. Basic chemistry profile is pending this am. She states that when she leaves the hospital the only person who can stay with her is her 10 year old granddaughter and that staying at a family or friends house is not an option for her. Physical Exam Vital Signs: Vital Signs: Last Vital Signs Temp 98.1 F 06/14/20 08:00 Pulse 76 06/14/20 08:00 Resp 18 06/14/20 08:00 BP 140/81 H 06/14/20 08:00 Pulse Ox 97 06/14/20 08:00 Body Mass Index 40.5 Const: General: other (Very anxous appearing at first, more relaxed now) GI: Inspection: Yes abdominal wall ecchymosis and Yes scar (incisons clean dry intact healing well) Palpation (GI): Soft to palpation, not firm, nontender, no guarding, not rigid, no hernias and no masses Progress Note: A&P Assessment and plan (1) S/P gastric bypass: Problem details: Pt is POD #11 and HD # 9 for nausea and emesis after RNYGBP. Pt feels better again this am and is presently tolerating warmed protein shakes, 1 oz every 15 m inutes. She will be given protein shake this am and continue to drink 1 oz every 15 minutes, if she tolerates it well she will be discharged home today and will follow up in bariatric office on June 16. Edema at G- J junction noted on CT at time of admission. Plan discussed with Dr Brewer who is in agreement. Status: Acute (2) Anxiety: Problem details: This seems to be a significant factor in her inability to tolerate po fluids. Her anxiety is being controlled with IV lorazepam now, but she is still not getting her daily citalopram and states no one can bring it to the hospital for her. She will resume her normal antianxiety and depression meds when she is discharged. Status: Acute (3) HTN (hypertension), benign: Problem details: Continue home po medications Status: Acute (4) Hypokalemia: Problem details: Potassium level is 3.4 yesterday and was replaced po x 1. Recheck pending. Status: Acute (5) Intestinal malabsorption following gastrectomy: Status: Acute (6) Morbid obesity due to excess calories: Status: Acute (7) Nausea: Problem details: resolved this am Status: Acute Fall Risk Details Current Medications: Current Medications Generic Name Dose Route Start Last Admin Trade Name Freq PRN Reason Stop Dose Admin Amlodipine Besylate 10 mg 06/12/20 12:40 06/14/20 08:50 Amlodipine Besylate 10 Mg Tablet PO 10 mg DAILY ANDREW Administration Protocol Heparin Sodium (Porcine) 5,000 unit 06/10/20 10:15 06/13/20 22:08 Heparin Sodium,Porcine 5,000 Unit/Ml Vial SUBCUT 5,000 unit Q12H ANDREW Administration Hydralazine HCl 10 mg 06/06/20 08:39 06/12/20 12:25 Hydralazine Hcl 20 Mg/Ml Vial IVPUSH 10 mg Q6H PRN Administration SBP >160 Protocol Promethazine HCl 12.5 mg/ 50.5 mls @ 202 mls/hr 06/09/20 15:11 06/12/20 17:01 Sodium Chloride IV Infused Q4H PRN Infusion Nausea Potassium Chloride/Dextrose/Sod Cl 20 meq in 1,000 mls @ 125 mls/hr 06/11/20 14:45 06/14/20 02:31 IVCONT 125 mls/hr .Q8H ANDREW Administration Lisinopril 40 mg 06/12/20 12:40 06/14/20 08:50 Lisinopril 40 Mg Tablet PO 40 mg DAILY ANDREW Administration Protocol Lorazepam 1 mg 06/12/20 17:40 06/14/20 08:50 Lorazepam 2 Mg/Ml Vial IVPUSH 1 mg Q6H PRN Administration Anxiety Ondansetron HCl 4 mg 06/05/20 15:00 06/14/20 06:03 Ondansetron Hcl 4 Mg/2 Ml Vial IVPUSH 4 mg Q8H ANDREW Administration Quetiapine Fumarate 50 mg 06/08/20 09:00 06/14/20 08:50 Quetiapine Fumarate 50 Mg Tablet PO 50 mg DAILY ANDREW Administration Quetiapine Fumarate 200 mg 06/07/20 21:00 06/13/20 22:08 Quetiapine Fumarate 200 Mg Tablet PO 200 mg BEDTIME ANDREW Administration Sodium Chloride 3 ml 06/05/20 16:00 06/14/20 08:50 0.9 % Sodium Chloride Flush 3 Ml Syringe IVFLUSH 3 ml QSHIFT ANDREW Administration Time Spent With Patient Time: Total time spent is greater than 50% in coordination of care (as documented) at patient's floor/unit and/or counseling patient: Time with patient: Greater than 35 minutes
[2020-06-14 10:45] LABS: Anion Gap 11 (12-20); Blood Urea Nitrogen 3 mg/dL (9-16); Carbon Dioxide 26 mmol/L (22-29); Chloride 109 mmol/L (96-108); Creatinine Clr Calc Pharmacy 83.4; Estimated Glomerular Filt Rate > 60; Glucose Random 118 mg/dL (60-115); Potassium 4.1 mmol/L (3.3-5.1); Sodium 142 mmol/L (135-145)
[2020-06-14] MEDS: Acetaminophen Oral Liquid 650 MG/20.3 ML SOLUTION PO (11:20)
[2020-06-14] MEDS: Scopolamine 1.5 MG PATCH.TD.3 EAR-BEHIND (11:21)
[2020-06-14] MEDS: Heparin Sodium,Porcine 5,000 UNIT/ML VIAL 5000 UNIT SUBCUT ×2 (11:22→22:30)
[2020-06-14] MEDS: Escitalopram Oxalate 20 MG TABLET PO (11:22)
[2020-06-14 11:41] VITALS: BP 152/75; PULSE 84; RESP 18; TEMP 36.6; O2SAT 96
[2020-06-14] MEDS: Pantoprazole Sodium 40 MG/10 ML VIAL IVPUSH (14:23)
[2020-06-14] MEDS: Sucralfate Oral Suspension 1 GM/10 ML ORAL.SUSP PO ×2 (14:23→22:28)
[2020-06-14 15:00] VITALS: BMI 41.2
[2020-06-14 15:12] VITALS: BP 144/86; PULSE 100; RESP 18; TEMP 36.8; O2SAT 94
--- NOTE | 2020-06-14 16:31 | PC.NURSE ---
Addendum entered by Mita Archibald RN 06/14/20 16:47: warm compress applied to upper abdomen for comfort,patient reports good effect Original Note: P went to assess patient,found patient being very upset,vomited 100 ml of yellow liquid I-notified CINDY Sánchez,administered IV Ativan, E will monitor
[2020-06-14 19:41] VITALS: BP 180/91; PULSE 100; RESP 16; TEMP 36; O2SAT 93
[2020-06-14] MEDS: QUEtiapine Fumarate 200 MG TABLET PO (22:27)
[2020-06-14 23:12] VITALS: BP 116/60; PULSE 93; RESP 20; TEMP 36.7; O2SAT 94
[2020-06-15] VITALS (7 sets, daily range): BP systolic 123–142; BP diastolic 61–77; PULSE 83–101; RESP 18–20; TEMP 36.3–36.9; O2SAT 93–95
[2020-06-15] MEDS: ondansetron HCL 4 MG/2 ML VIAL IVPUSH ×3 (06:22→22:18)
[2020-06-15] MEDS: Pantoprazole Sodium 40 MG/10 ML VIAL IVPUSH ×2 (06:22→15:36)
[2020-06-15 06:58] LABS: Anion Gap 13 (12-20); Blood Urea Nitrogen 4 mg/dL (9-16); Calcium 8.9 mg/dL (8.4-10.2); Carbon Dioxide 26 mmol/L (22-29); Chloride 108 mmol/L (96-108); Creatinine Clr Calc Pharmacy 88.2; Estimated Glomerular Filt Rate > 60; Glucose Random 109 mg/dL (60-115); Potassium 3.8 mmol/L (3.3-5.1); Sodium 143 mmol/L (135-145)
[2020-06-15] MEDS: Escitalopram Oxalate 20 MG TABLET PO (08:36)
[2020-06-15] MEDS: QUEtiapine Fumarate 50 MG TABLET PO (08:36)
[2020-06-15] MEDS: Sucralfate Oral Suspension 1 GM/10 ML ORAL.SUSP PO ×2 (08:36→22:22)
[2020-06-15] MEDS: 0.9 % Sodium Chloride Flush 3 ML SYRINGE IVFLUSH ×3 (08:36→22:37)
[2020-06-15] MEDS: lisinopriL 40 MG TABLET PO (08:36)
[2020-06-15] MEDS: amLODIPine Besylate 10 MG TABLET PO (08:36)
[2020-06-15] MEDS: LORazepam 2 MG/ML VIAL 1 MG IVPUSH ×3 (08:59→22:19)
[2020-06-15 09:03] LABS: Magnesium 1.6 mg/dL (1.6-2.6)
--- NOTE | 2020-06-15 09:14 | PM.PNGS ---
Subjective Subjective Date of Service: 06/15/20 Interval history: Patient feels very anxious this morning. She reports she tried protein shakes which were too thick yesterday and she felt very full which led to more anxiety. She had 1 episode of small emesis yesterday morning. She was supposed to be to switch to Ensure Clear and she reports she never got the clear protein yesterday. She has been up and ambulating. She reports she has had no nausea or vomiting since yesterday morning. She is anxious to go home. Patient has received Ensure Clear this morning and is tolerating without difficulty. She denies any nausea vomiting. She does report feeling very anxious. Vital signs are within normal limits. Potassium is 3.8 this morning and I am replacing it with 20 mEq of potassium chloride by mouth. Magnesium is 1.6 I am also replacing that. Vital signs are within normal limits. Physical Exam Vital Signs: Vital Signs: Last Vital Signs Temp 97.3 F 06/15/20 08:00 Pulse 92 06/15/20 08:36 Resp 18 06/15/20 08:00 BP 142/77 H 06/15/20 08:36 Pulse Ox 94 06/15/20 08:00 Body Mass Index 41.2 Const: Other: Very anxious and crying at times General: cooperative, healthy appearing and comfortable GI: Inspection: Yes normal to inspection, No distended, Yes incision (Clean dry intact with Dermabond in place) and Yes obesity Palpation (GI): Soft to palpation, not firm, nontender, no guarding, hepatosplenomegaly present, no hernias and no masses Extrem: General: Yes normal to inspection, Yes full ROM, Yes no clubbing, cyanosis or edema and Yes no calf tenderness Progress Note: A&P Assessment and plan (1) S/P gastric bypass: Status: Acute Assessment and Plan: This is a 64-year-old lady on postoperative day 12. Status post laparoscopic conversion of sleeve gastrectomy to Indra-en-Y gastric bypass. Patient had some postoperative edema at the gastrojejunostomy which has resolved. Since that time frame patient has had a significant amount of anxiety which has prevented her from taking in adequate p.o.. Patient was tolerating some of the protein shakes but felt that they were too heavy to drink. We have since switched her over to a clear protein liquid Ensure Clear which she is tolerating. We have also been repleting her potassium and magnesium which were almost within normal range. If patient is tolerating Ensure Clear by this afternoon she will be discharged home to continue with Isopure clear protein for her protein nutrition. We will check on the patient this afternoon and decide whether she should be discharged. Patient will continue to ambulate and use incentive spirometer. Fall Risk Details Current Medications: Current Medications Generic Name Dose Route Start Last Admin Trade Name Freq PRN Reason Stop Dose Admin Acetaminophen 650 mg 06/14/20 09:50 06/14/20 11:20 Acetaminophen Oral Liquid 650 Mg/20.3 Ml Solution PO 650 mg Q4H PRN Administration Pain, Moderate (Pain Scale 4-6 Amlodipine Besylate 10 mg 06/12/20 12:40 06/15/20 08:36 Amlodipine Besylate 10 Mg Tablet PO 10 mg DAILY ANDREW Administration Protocol Escitalopram Oxalate 20 mg 06/15/20 09:00 06/15/20 08:36 Escitalopram Oxalate 20 Mg Tablet PO 20 mg DAILY ANDREW Administration Heparin Sodium (Porcine) 5,000 unit 06/10/20 10:15 06/14/20 22:30 Heparin Sodium,Porcine 5,000 Unit/Ml Vial SUBCUT 5,000 unit Q12H ANDREW Administration Hydralazine HCl 10 mg 06/06/20 08:39 06/12/20 12:25 Hydralazine Hcl 20 Mg/Ml Vial IVPUSH 10 mg Q6H PRN Administration SBP >160 Protocol Promethazine HCl 12.5 mg/ 50.5 mls @ 202 mls/hr 06/09/20 15:11 06/12/20 17:01 Sodium Chloride IV Infused Q4H PRN Infusion Nausea Lisinopril 40 mg 06/12/20 12:40 06/15/20 08:36 Lisinopril 40 Mg Tablet PO 40 mg DAILY ANDREW Administration Protocol Lorazepam 1 mg 06/12/20 17:40 06/15/20 08:59 Lorazepam 2 Mg/Ml Vial IVPUSH 1 mg Q6H PRN Administration Anxiety Ondansetron HCl 4 mg 06/05/20 15:00 06/15/20 06:22 Ondansetron Hcl 4 Mg/2 Ml Vial IVPUSH 4 mg Q8H ANDREW Administration Pantoprazole Sodium 40 mg 06/14/20 16:30 06/15/20 06:22 Pantoprazole Sodium 40 Mg/10 Ml Vial IVPUSH 40 mg BID@0630,1630 ANDREW Administration Quetiapine Fumarate 50 mg 06/08/20 09:00 06/15/20 08:36 Quetiapine Fumarate 50 Mg Tablet PO 50 mg DAILY ANDREW Administration Quetiapine Fumarate 200 mg 06/07/20 21:00 06/14/20 22:27 Quetiapine Fumarate 200 Mg Tablet PO 200 mg BEDTIME ANDREW Administration Sodium Chloride 3 ml 06/05/20 16:00 06/15/20 08:36 0.9 % Sodium Chloride Flush 3 Ml Syringe IVFLUSH 3 ml QSHIFT ANDREW Administration Sucralfate 1 gm 06/14/20 14:15 06/15/20 08:36 Sucralfate Oral Suspension 1 Gm/10 Ml Oral.Susp PO 1 gm BID ANDREW Administration Time Spent With Patient Time: Total time spent is greater than 50% in coordination of care (as documented) at patient's floor/unit and/or counseling patient: Time with patient: less than 15 minutes
[2020-06-15] MEDS: Magnesium Sulfate/H2O 2 GM/50 ML PIGGYBACK IV (10:17)
[2020-06-15] MEDS: Potassium Chloride ER 20 MEQ TAB.ER.PRT PO (10:18)
[2020-06-15] MEDS: Heparin Sodium,Porcine 5,000 UNIT/ML VIAL 5000 UNIT SUBCUT ×2 (10:18→22:23)
--- NOTE | 2020-06-15 15:40 | MHC.CM.PN ---
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 she reported all her family is woking either two jobs or one is a nurse at [employer] and does get out until after 7 pm ) DISCHARGE PLAN PATIENT REPORTED THAT SHE IS NOT SURE IF SHE WILL OR WILL NOT BE DISCHARGED HOME HARITHA
[2020-06-15] MEDS: QUEtiapine Fumarate 200 MG TABLET PO (22:22)
[2020-06-16] VITALS (8 sets, daily range): BP systolic 120–139; BP diastolic 49–78; PULSE 74–98; RESP 19–20; TEMP 36.4–37.1; O2SAT 92–96
[2020-06-16] MEDS: ondansetron HCL 4 MG/2 ML VIAL IVPUSH ×3 (06:01→22:08)
[2020-06-16] MEDS: Pantoprazole Sodium 40 MG/10 ML VIAL IVPUSH ×2 (06:01→16:32)
[2020-06-16] MEDS: LORazepam 2 MG/ML VIAL 1 MG IVPUSH ×3 (06:02→22:08)
[2020-06-16] MEDS: Sucralfate Oral Suspension 1 GM/10 ML ORAL.SUSP PO ×2 (08:22→20:49)
[2020-06-16] MEDS: amLODIPine Besylate 10 MG TABLET PO (08:22)
[2020-06-16] MEDS: QUEtiapine Fumarate 50 MG TABLET PO (08:22)
[2020-06-16] MEDS: 0.9 % Sodium Chloride Flush 3 ML SYRINGE IVFLUSH ×2 (08:22→14:16)
[2020-06-16] MEDS: Escitalopram Oxalate 20 MG TABLET PO (08:22)
[2020-06-16] MEDS: lisinopriL 40 MG TABLET PO (08:23)
--- NOTE | 2020-06-16 09:28 | PM.PNGS ---
Subjective Subjective Date of Service: 06/16/20 Interval history: Patient is still confused about how much liquid she is supposed to drink and how quickly. She still drinking too quickly and sometimes becomes nauseated. She has not vomited and multiple days. I did spend about 40 minutes with her in her room going over how quickly she is post drink that she is supposed to drink 1 oz every 15 minutes. I then broke down further that she should take 1/4 of the 1 oz cup and wait 3 minutes in between drinks to get down the 1 oz in 15 minutes. I asked her to set alarms on her phone for 15 minutes increments so that she would not drink too quickly. This morning she took all 5 of her pills and then drink 3 oz of liquids and less than 15 minute time frame and then felt very full. She is up and ambulating. Her pain is well controlled. She still feels very anxious but her anxiety is improved with administration of Ativan. Physical Exam Vital Signs: Vital Signs: Last Vital Signs Temp 98.7 F 06/16/20 07:49 Pulse 89 06/16/20 08:23 Resp 19 06/16/20 07:49 BP 129/60 06/16/20 08:23 Pulse Ox 94 06/16/20 07:49 Body Mass Index 41.2 Const: General: cooperative, healthy appearing, comfortable and no acute distress GI: Other: Obese, soft, nondistended, mild appropriate incisional tenderness. Incisions are clean dry intact with Dermabond in place. Inspection: Yes normal to inspection, No distended, Yes incision (Clean dry intact with Dermabond in place) and Yes obesity Palpation (GI): Soft to palpation, not firm, nontender, no guarding, hepatosplenomegaly present, no hernias and no masses Extrem: General: Yes normal to inspection, Yes full ROM, Yes no clubbing, cyanosis or edema and Yes no calf tenderness Progress Note: A&P Assessment and plan (1) S/P gastric bypass: Status: Acute Assessment and Plan: This is a 64-year-old lady on postoperative day 13. Status post laparoscopic conversion of sleeve gastrectomy to Indra-en-Y gastric bypass. Patient had some postoperative edema at the gastrojejunostomy which has resolved. Since that time frame patient has had a significant amount of anxiety which has prevented her from taking in adequate p.o. patient is tolerating Ensure Clear but seems to be drinking the shakes to quickly which makes her over full. I spent 40 minutes of time with her watching her drink the shakes and ensuring that she was going slowly. We have set up a every 15 minutes drinking schedule so that she can get her water and protein shakes and. I also encouraged the patient to drink her shakes and water at a colder temperature. I also encouraged her to ambulate often to help the fluid go down by gravity. I will re-evaluate her at noon and if she is doing well with drinking both protein shakes and water I will discharge her home. Fall Risk Details Current Medications: Current Medications Generic Name Dose Route Start Last Admin Trade Name Freq PRN Reason Stop Dose Admin Acetaminophen 650 mg 06/14/20 09:50 06/14/20 11:20 Acetaminophen Oral Liquid 650 Mg/20.3 Ml Solution PO 650 mg Q4H PRN Administration Pain, Moderate (Pain Scale 4-6 Amlodipine Besylate 10 mg 06/12/20 12:40 06/16/20 08:22 Amlodipine Besylate 10 Mg Tablet PO 10 mg DAILY ANDREW Administration Protocol Escitalopram Oxalate 20 mg 06/15/20 09:00 06/16/20 08:22 Escitalopram Oxalate 20 Mg Tablet PO 20 mg DAILY ANDREW Administration Heparin Sodium (Porcine) 5,000 unit 06/10/20 10:15 06/15/20 22:23 Heparin Sodium,Porcine 5,000 Unit/Ml Vial SUBCUT 5,000 unit Q12H ANDREW Administration Hydralazine HCl 10 mg 06/06/20 08:39 06/12/20 12:25 Hydralazine Hcl 20 Mg/Ml Vial IVPUSH 10 mg Q6H PRN Administration SBP >160 Protocol Promethazine HCl 12.5 mg/ 50.5 mls @ 202 mls/hr 06/09/20 15:11 06/16/20 08:50 Sodium Chloride IV 0 mls/hr Q4H PRN Infusion Nausea Lisinopril 40 mg 06/12/20 12:40 06/16/20 08:23 Lisinopril 40 Mg Tablet PO 40 mg DAILY ANDREW Administration Protocol Lorazepam 1 mg 06/15/20 15:00 06/16/20 06:02 Lorazepam 2 Mg/Ml Vial IVPUSH 1 mg Q8H ANDREW Administration Ondansetron HCl 4 mg 06/05/20 15:00 06/16/20 06:01 Ondansetron Hcl 4 Mg/2 Ml Vial IVPUSH 4 mg Q8H ANDREW Administration Pantoprazole Sodium 40 mg 06/14/20 16:30 06/16/20 06:01 Pantoprazole Sodium 40 Mg/10 Ml Vial IVPUSH 40 mg BID@0630,1630 ANDREW Administration Quetiapine Fumarate 50 mg 06/08/20 09:00 06/16/20 08:22 Quetiapine Fumarate 50 Mg Tablet PO 50 mg DAILY ANDREW Administration Quetiapine Fumarate 200 mg 06/07/20 21:00 06/15/20 22:22 Quetiapine Fumarate 200 Mg Tablet PO 200 mg BEDTIME ANDREW Administration Sodium Chloride 3 ml 06/05/20 16:00 06/16/20 08:22 0.9 % Sodium Chloride Flush 3 Ml Syringe IVFLUSH 3 ml QSHIFT ANDREW Administration Sucralfate 1 gm 06/14/20 14:15 06/16/20 08:22 Sucralfate Oral Suspension 1 Gm/10 Ml Oral.Susp PO 1 gm BID ANDREW Administration Time Spent With Patient Time: Total time spent is greater than 50% in coordination of care (as documented) at patient's floor/unit and/or counseling patient: Time with patient: Greater than 35 minutes
[2020-06-16] MEDS: Heparin Sodium,Porcine 5,000 UNIT/ML VIAL 5000 UNIT SUBCUT ×2 (09:56→22:08)
[2020-06-16] MEDS: Acetaminophen Oral Liquid 650 MG/20.3 ML SOLUTION PO (14:16)
[2020-06-16] MEDS: QUEtiapine Fumarate 200 MG TABLET PO (20:49)
[2020-06-17] VITALS (7 sets, daily range): BP systolic 119–139; BP diastolic 58–69; PULSE 75–107; RESP 16–20; TEMP 36.2–37.1; O2SAT 92–96; BMI 39.6
[2020-06-17] MEDS: Pantoprazole Sodium 40 MG/10 ML VIAL IVPUSH ×2 (06:19→19:48)
[2020-06-17] MEDS: ondansetron HCL 4 MG/2 ML VIAL IVPUSH ×3 (06:19→22:34)
[2020-06-17] MEDS: LORazepam 2 MG/ML VIAL 1 MG IVPUSH ×2 (06:19→14:30)
[2020-06-17 07:31] LABS: Anion Gap 14 (12-20); Blood Urea Nitrogen 8 mg/dL (9-16); Calcium 8.6 mg/dL (8.4-10.2); Carbon Dioxide 24 mmol/L (22-29); Chloride 107 mmol/L (96-108); Creatinine Clr Calc Pharmacy 85.5; Estimated Glomerular Filt Rate > 60; Glucose Random 102 mg/dL (60-115); Potassium 3.4 mmol/L (3.3-5.1); Sodium 142 mmol/L (135-145)
--- NOTE | 2020-06-17 07:55 | PM.PNGS ---
Subjective Subjective Date of Service: 06/17/20 Interval history: Patient still having some confusion about the diet and was not taking in enough of the clear liquid protein shakes. Her son came last evening and brought the Isopure shakes she will be doing at home. She did take in 1 oz of the these clear protein shakes from 18:00 until 20:30 for total of 5 oz with the addition of some water in between. This is adequate intake. Patient denies nausea or vomiting. Vital signs are within normal limits. Potassium this morning is 3.4 and I will replace that with 20 mEq of potassium chloride x2 before noon. Physical Exam Vital Signs: Vital Signs: Last Vital Signs Temp 98.7 F 06/17/20 07:52 Pulse 107 H 06/17/20 07:52 Resp 18 06/17/20 07:52 BP 131/58 L 06/17/20 07:52 Pulse Ox 93 06/17/20 07:52 Body Mass Index 41.2 Const: Other: Very anxious and crying at times General: cooperative, healthy appearing, comfortable and no acute distress GI: Other: Obese, soft, nondistended, mild appropriate incisional tenderness. Incisions are clean dry intact with Dermabond in place. Inspection: Yes normal to inspection, No distended, Yes incision (Clean dry intact with Dermabond in place) and Yes obesity Palpation (GI): Soft to palpation, not firm, nontender, no guarding, hepatosplenomegaly present, no hernias and no masses Extrem: General: Yes normal to inspection, Yes full ROM, Yes no clubbing, cyanosis or edema and Yes no calf tenderness Progress Note: A&P Assessment and plan (1) S/P gastric bypass: Status: Acute Assessment and Plan: This is a 64-year-old lady on postoperative day 14. Status post laparoscopic conversion of sleeve gastrectomy to Indra-en-Y gastric bypass. Patient had some postoperative edema at the gastrojejunostomy which has resolved. Since that time frame patient has had a significant amount of anxiety which has prevented her from taking in adequate p.o. patient started the clear protein liquids that she will be taking at home last evening and has adequate intake since last evening. We will evaluate her this morning and if the patient is continue to take adequate intake she will be discharged home. If the patient is not taking adequate intake she we will set up home TPN and continue to teach the patient on a daily basis so that she can get the concepts of how much she is supposed to be drinking and how quickly. I replaced her potassium with 20 mEq of potassium chloride x2 this morning. Fall Risk Details Current Medications: Current Medications Generic Name Dose Route Start Last Admin Trade Name Hong PRN Reason Stop Dose Admin Acetaminophen 650 mg 06/14/20 09:50 06/16/20 14:16 Acetaminophen Oral Liquid 650 Mg/20.3 Ml Solution PO 650 mg Q4H PRN Administration Pain, Moderate (Pain Scale 4-6 Amlodipine Besylate 10 mg 06/12/20 12:40 06/16/20 08:22 Amlodipine Besylate 10 Mg Tablet PO 10 mg DAILY ANDREW Administration Protocol Escitalopram Oxalate 20 mg 06/15/20 09:00 06/16/20 08:22 Escitalopram Oxalate 20 Mg Tablet PO 20 mg DAILY ANDREW Administration Heparin Sodium (Porcine) 5,000 unit 06/10/20 10:15 06/16/20 22:08 Heparin Sodium,Porcine 5,000 Unit/Ml Vial SUBCUT 5,000 unit Q12H ANDREW Administration Hydralazine HCl 10 mg 06/06/20 08:39 06/12/20 12:25 Hydralazine Hcl 20 Mg/Ml Vial IVPUSH 10 mg Q6H PRN Administration SBP >160 Protocol Promethazine HCl 12.5 mg/ 50.5 mls @ 202 mls/hr 06/09/20 15:11 06/16/20 10:19 Sodium Chloride IV Infused Q4H PRN Infusion Nausea Lisinopril 40 mg 06/12/20 12:40 06/16/20 08:23 Lisinopril 40 Mg Tablet PO 40 mg DAILY ANDREW Administration Protocol Lorazepam 1 mg 06/15/20 15:00 06/17/20 06:19 Lorazepam 2 Mg/Ml Vial IVPUSH 1 mg Q8H ANDREW Administration Ondansetron HCl 4 mg 06/05/20 15:00 06/17/20 06:19 Ondansetron Hcl 4 Mg/2 Ml Vial IVPUSH 4 mg Q8H ANDREW Administration Pantoprazole Sodium 40 mg 06/14/20 16:30 06/17/20 06:19 Pantoprazole Sodium 40 Mg/10 Ml Vial IVPUSH 40 mg BID@0630,1630 ANDREW Administration Quetiapine Fumarate 50 mg 06/08/20 09:00 06/16/20 08:22 Quetiapine Fumarate 50 Mg Tablet PO 50 mg DAILY ANDREW Administration Quetiapine Fumarate 200 mg 06/07/20 21:00 06/16/20 20:49 Quetiapine Fumarate 200 Mg Tablet PO 200 mg BEDTIME ANDREW Administration Sodium Chloride 3 ml 06/05/20 16:00 06/17/20 00:54 0.9 % Sodium Chloride Flush 3 Ml Syringe IVFLUSH Not Given QSHIFT ANDREW Sucralfate 1 gm 06/14/20 14:15 06/16/20 20:49 Sucralfate Oral Suspension 1 Gm/10 Ml Oral.Susp PO 1 gm BID ANDREW Administration Time Spent With Patient Time: Total time spent is greater than 50% in coordination of care (as documented) at patient's floor/unit and/or counseling patient: Time with patient: less than 15 minutes
[2020-06-17] MEDS: lisinopriL 40 MG TABLET PO (09:39)
[2020-06-17] MEDS: Sucralfate Oral Suspension 1 GM/10 ML ORAL.SUSP PO ×2 (09:39→21:36)
[2020-06-17] MEDS: Escitalopram Oxalate 20 MG TABLET PO (09:39)
[2020-06-17] MEDS: Potassium Chloride ER 20 MEQ TAB.ER.PRT PO ×2 (09:39→13:04)
[2020-06-17] MEDS: QUEtiapine Fumarate 50 MG TABLET PO (09:40)
[2020-06-17] MEDS: amLODIPine Besylate 10 MG TABLET PO (09:40)
[2020-06-17] MEDS: Heparin Sodium,Porcine 5,000 UNIT/ML VIAL 5000 UNIT SUBCUT ×2 (09:40→21:34)
[2020-06-17] MEDS: 0.9 % Sodium Chloride Flush 3 ML SYRINGE IVFLUSH ×2 (09:42→16:35)
[2020-06-17] MEDS: Acetaminophen Oral Liquid 650 MG/20.3 ML SOLUTION PO ×3 (09:51→18:28)
[2020-06-17] MEDS: Lactated Ringers 500 ML IVCONT (19:45)
[2020-06-17] MEDS: KCl 20 mEq in 0.45% Sod 20 MEQ/1,000 ML IV.SOLN 100 MEQ IVCONT (21:35)
[2020-06-17] MEDS: QUEtiapine Fumarate 200 MG TABLET PO (21:35)
--- NOTE | 2020-06-17 21:44 | PC.NURSE ---
P patient has not voided,c/o hearburn I CINDY Sánchez was notified ,patient was bladder scanned at 1835 for 32 ml,Protonix IV was administered E IV bolus was administered as ordered,IV fluid infusing as ordered now,patient resting has no complaints at present ,
--- NOTE | 2020-06-17 22:39 | PC.NURSE ---
P patient unable to urinate I bladder scanned 340 ml,CINDY Sánchez notified E will monitor
[2020-06-18 04:00] VITALS: BP 115/55; PULSE 89; RESP 20; TEMP 36.3; O2SAT 94
[2020-06-18] MEDS: Pantoprazole Sodium 40 MG/10 ML VIAL IVPUSH ×2 (06:10→16:48)
[2020-06-18] MEDS: KCl 20 mEq in 0.45% Sod 20 MEQ/1,000 ML IV.SOLN 100 MEQ IVCONT (06:12)
[2020-06-18 08:00] VITALS: BP 106/52; PULSE 86; RESP 20; TEMP 36.9; O2SAT 93
[2020-06-18 08:04] LABS: Alanine Aminotransferase 25 U/L (0-31); Albumin Level 3.5 g/dL (3.5-5.0); Alkaline Phosphatase 71 U/L (39-117); Anion Gap 11 (12-20); Aspartate Amino Transferase 23 U/L (5-31); Bilirubin Total 0.9 mg/dL (0.0-1.0); Blood Urea Nitrogen 10 mg/dL (9-16); Calcium 8.3 mg/dL (8.4-10.2); Carbon Dioxide 25 mmol/L (22-29); Chloride 106 mmol/L (96-108); Cholesterol 131 mg/dL; Creatinine Clr Calc Pharmacy 89.1; Estimated Glomerular Filt Rate > 60; Glucose Random 93 mg/dL (60-115); HDL Cholesterol 22 mg/dL; LDL Cholesterol Calculated 76 mg/dl; Magnesium 1.8 mg/dL (1.6-2.6); Phosphorus 3.6 mg/dL (2.7-4.5); Potassium 3.4 mmol/L (3.3-5.1); Sodium 139 mmol/L (135-145); Total Protein 5.9 g/dL (6.5-8.0); Triglycerides 165 mg/dL
--- NOTE | 2020-06-18 08:30 | PM.PNGS ---
Subjective Subjective Date of Service: 06/18/20 Interval history: PO intake in last 24 hours: <18 oz. Will drink 1 oz then take a long break. Denies nausea/pain. Physical Exam Vital Signs: Vital Signs: Last Vital Signs Temp 98.5 F 06/18/20 08:00 Pulse 86 06/18/20 08:00 Resp 20 06/18/20 08:00 BP 106/52 L 06/18/20 08:00 Pulse Ox 93 06/18/20 08:00 Body Mass Index 39.6 Const: General: cooperative, comfortable, no acute distress, alert and awake Nutritional Appearance: obese GI: Inspection: Yes normal to inspection, Yes incision (normal, no tenderness/warmth/drainage) and Yes obesity Extrem: Right lower extremity: lower leg Details: no tenderness; no edema Left lower extremity: lower leg Details: no tenderness; no edema Progress Note: A&P Assessment and plan (1) S/P gastric bypass: Status: Acute (2) Anxiety: Problem details: Status: Acute (3) Nausea: Problem details: resolved this am Status: Acute (4) Intestinal malabsorption following gastrectomy: Status: Acute Assessment and Plan: Patient seen by myself and Dr. Brewer. Reviewed again the importance of po intake and how to drink 1 oz every 15 minutes and over a 15 minute time period. Discussed that she may need to be discharged on TPN if not able to take in adequate po intake. Fall Risk Details Current Medications: Current Medications Generic Name Dose Route Start Last Admin Trade Name Freq PRN Reason Stop Dose Admin Acetaminophen 650 mg 06/14/20 09:50 06/17/20 18:28 Acetaminophen Oral Liquid 650 Mg/20.3 Ml Solution PO 650 mg Q4H PRN Administration Pain, Moderate (Pain Scale 4-6 Amlodipine Besylate 10 mg 06/12/20 12:40 06/17/20 09:40 Amlodipine Besylate 10 Mg Tablet PO 10 mg DAILY ANDREW Administration Protocol Escitalopram Oxalate 20 mg 06/15/20 09:00 06/17/20 09:39 Escitalopram Oxalate 20 Mg Tablet PO 20 mg DAILY ANDREW Administration Heparin Sodium (Porcine) 5,000 unit 06/10/20 10:15 06/17/20 21:34 Heparin Sodium,Porcine 5,000 Unit/Ml Vial SUBCUT 5,000 unit Q12H ANDREW Administration Hydralazine HCl 10 mg 06/06/20 08:39 06/12/20 12:25 Hydralazine Hcl 20 Mg/Ml Vial IVPUSH 10 mg Q6H PRN Administration SBP >160 Protocol Promethazine HCl 12.5 mg/ 50.5 mls @ 202 mls/hr 06/09/20 15:11 06/16/20 10:19 Sodium Chloride IV Infused Q4H PRN Infusion Nausea Potassium Chloride/Sodium Chloride 20 meq in 1,000 mls @ 100 mls/hr 06/17/20 19:00 06/18/20 06:12 IVCONT 100 mls/hr .Q10H ANDREW Administration Lisinopril 40 mg 06/12/20 12:40 06/17/20 09:39 Lisinopril 40 Mg Tablet PO 40 mg DAILY ANDREW Administration Protocol Lorazepam 1 mg 06/15/20 15:00 06/17/20 22:30 Lorazepam 2 Mg/Ml Vial IVPUSH Not Given Q8H ANDREW Ondansetron HCl 4 mg 06/05/20 15:00 06/17/20 22:34 Ondansetron Hcl 4 Mg/2 Ml Vial IVPUSH 4 mg Q8H ANDREW Administration Pantoprazole Sodium 40 mg 06/17/20 19:00 06/18/20 06:10 Pantoprazole Sodium 40 Mg/10 Ml Vial IVPUSH 40 mg BID@0630,1630 ANDREW Administration Quetiapine Fumarate 50 mg 06/08/20 09:00 06/17/20 09:40 Quetiapine Fumarate 50 Mg Tablet PO 50 mg DAILY ANDREW Administration Quetiapine Fumarate 200 mg 06/07/20 21:00 06/17/20 21:35 Quetiapine Fumarate 200 Mg Tablet PO 200 mg BEDTIME ANDREW Administration Sodium Chloride 3 ml 06/05/20 16:00 06/18/20 00:40 0.9 % Sodium Chloride Flush 3 Ml Syringe IVFLUSH Not Given QSHIFT ANDREW Sucralfate 1 gm 06/14/20 14:15 06/17/20 21:36 Sucralfate Oral Suspension 1 Gm/10 Ml Oral.Susp PO 1 gm BID ANDREW Administration Time Spent With Patient Time: Total time spent is greater than 50% in coordination of care (as documented) at patient's floor/unit and/or counseling patient: Time with patient: 25 - 35 minutes
[2020-06-18 08:42] LABS: MANUAL DIFF FLAG NO
[2020-06-18 08:44] LABS: Basophils Percent Auto 0.4 % (0-2); Eosinophils Absolute Auto 0.1 X10*3/uL (0.0-0.4); Eosinophils Percent Auto 2.2 % (0-4); Hematocrit 36.7 % (37-47); Hemoglobin 12.6 g/dl (12.0-16.0); Imm Gran Abs Auto 0.01 X10*3/uL (0.00-0.03); Imm Gran Pct Auto 0.2 % (0.0-0.4); Lymphocytes Absolute Auto 1.6 X10*3/uL (1.2-4.9); Mean Corpuscular HGB Conc 34.3 g/dl (31.0-35.0); Mean Corpuscular Hemoglobin 30.3 pg (27.0-33.0); Mean Corpuscular Volume 88.2 fL (80-98); Mean Platelet Volume 9.7 fL (9.4-12.3); Monocytes Absolute Auto 0.4 X10*3/uL (0.1-1.2); Monocytes Percent Auto 9.7 % (2-11); Neutrophils Absolute Auto 2.3 X10*3/uL (2.0-8.3); Neutrophils Percent Auto 51.5 % (45-73); Platelet Count 282 X10*3/uL (160-400); Red Blood Count 4.16 X10*6/uL (4.20-5.50); White Blood Count 4.6 X10*3/uL (4.8-10.8)
--- NOTE | 2020-06-18 09:08 | P.PNGS_ITS ---
Subjective Subjective Date of Service: 06/18/20 Interval history: Patient has been for getting to drink her liquids every 10-15 minutes and then she goes several hours without drinking anything. Her IV blue couple days ago so she had no IV fluids and had poor p.o. intake because she would for get to drink. She had almost no urine output yesterday. IV was started and the patient was given a normal saline bolus and then placed on maintenance IV fluids. Her labs this morning are within normal range including her creatinine. Potassium is low at 3.4. I am replacing this with 4 runs of 10 mEq of potassium chloride. Magnesium is slightly low at 1.8 I am giving her 2 g magnesium sulfate. Patient also had nutrition labs. Protein is slightly low at 5.9. Albumin is within normal range at 3.5. Patient denies any nausea vomiting. She reports that she gets full after drinking her 1st round of protein shakes and then for gets to drink for several hours again. Patient has been up and ambulating. She has been moving her bowels without difficulty. Patient seems to for get which protein shakes she is supposed to be drinking and how much she supposed to be drinking and how often she is supposed to be drinking even though we have reminded her multiple times throughout the day and for several days since she has been here. Physical Exam Vital Signs: Vital Signs: Last Vital Signs Temp 98.5 F 06/18/20 08:00 Pulse 86 06/18/20 08:00 Resp 20 06/18/20 08:00 BP 106/52 L 06/18/20 08:00 Pulse Ox 93 06/18/20 08:00 Body Mass Index 39.6 Const: General: cooperative, healthy appearing, comfortable and no acute distress GI: Other: Obese, soft, nondistended, mild appropriate incisional tenderness. Incisions are clean dry intact with Dermabond in place. Inspection: Yes normal to inspection, No distended, Yes incision (Clean dry intact with Dermabond in place) and Yes obesity Palpation (GI): Soft to palpation, not firm, nontender, no guarding, hepatosplenomegaly present, no hernias and no masses Extrem: General: Yes normal to inspection, Yes full ROM, Yes no clubbing, cyanosis or edema and Yes no calf tenderness Progress Note: A&P Assessment and plan (1) S/P gastric bypass: Status: Acute Assessment and Plan: This is a 64-year-old lady on postoperative day 15. Status post laparoscopic conversion of sleeve gastrectomy to Indra-en-Y gastric bypass. Patient had some postoperative edema at the gastrojejunostomy which has resolved. Since that time frame patient has had a significant amount of anxiety which has prevented her from taking in adequate p.o. patient is tolerating the Isopure clear protein shakes but she forgets to drink them and is not taking in adequate p.o.. Patient had very low to no urine output yesterday as she did not taken enough protein shakes or water by mouth. We had to restart IV fluids. I again enco uraged the patient to write down 15 minutes increments and to drink at least 1 oz during those 15 minutes increments. If patient is unable to remember to take the protein shakes by mouth she will need a PICC line and TPN to hydrate her into she is able to remember to drink her protein. I will follow up with the patient again this afternoon and this evening. If patient is taking in adequate p.o. today and tomorrow she may be able to be discharged home without a PICC line and TPN otherwise she will have to have TPN set up for home. (2) Anxiety: Problem details: Status: Acute (3) Nausea: Problem details: resolved this am Status: Acute (4) Intestinal malabsorption following gastrectomy: Status: Acute Fall Risk Details Current Medications: Current Medications Generic Name Dose Route Start Last Admin Trade Name Freq PRN Reason Stop Dose Admin Acetaminophen 650 mg 06/14/20 09:50 06/17/20 18:28 Acetaminophen Oral Liquid 650 Mg/20.3 Ml Solution PO 650 mg Q4H PRN Administration Pain, Moderate (Pain Scale 4-6 Amlodipine Besylate 10 mg 06/12/20 12:40 06/17/20 09:40 Amlodipine Besylate 10 Mg Tablet PO 10 mg DAILY ANDREW Administration Protocol Escitalopram Oxalate 20 mg 06/15/20 09:00 06/17/20 09:39 Escitalopram Oxalate 20 Mg Tablet PO 20 mg DAILY ANDREW Administration Heparin Sodium (Porcine) 5,000 unit 06/10/20 10:15 06/17/20 21:34 Heparin Sodium,Porcine 5,000 Unit/Ml Vial SUBCUT 5,000 unit Q12H ANDREW Administration Hydralazine HCl 10 mg 06/06/20 08:39 06/12/20 12:25 Hydralazine Hcl 20 Mg/Ml Vial IVPUSH 10 mg Q6H PRN Administration SBP >160 Protocol Promethazine HCl 12.5 mg/ 50.5 mls @ 202 mls/hr 06/09/20 15:11 06/16/20 10:19 Sodium Chloride IV Infused Q4H PRN Infusion Nausea Potassium Chloride/Sodium Chloride 20 meq in 1,000 mls @ 100 mls/hr 06/17/20 19:00 06/18/20 06:12 IVCONT 100 mls/hr .Q10H ANDREW Administration Potassium Chloride 10 meq in 100 mls @ 100 mls/hr 06/18/20 08:45 IV 06/18/20 12:44 Q1H ANDREW Magnesium Sulfate 2 gm in 50 mls @ 25 mls/hr 06/18/20 08:41 IV 06/18/20 10:40 ONCE ONE Lisinopril 40 mg 06/12/20 12:40 06/17/20 09:39 Lisinopril 40 Mg Tablet PO 40 mg DAILY ANDREW Administration Protocol Lorazepam 1 mg 06/15/20 15:00 06/17/20 22:30 Lorazepam 2 Mg/Ml Vial IVPUSH Not Given Q8H ANRDEW Ondansetron HCl 4 mg 06/05/20 15:00 06/17/20 22:34 Ondansetron Hcl 4 Mg/2 Ml Vial IVPUSH 4 mg Q8H ANDREW Administration Pantoprazole Sodium 40 mg 06/17/20 19:00 06/18/20 06:10 Pantoprazole Sodium 40 Mg/10 Ml Vial IVPUSH 40 mg BID@0630,1630 ANDREW Administration Quetiapine Fumarate 50 mg 06/08/20 09:00 06/17/20 09:40 Quetiapine Fumarate 50 Mg Tablet PO 50 mg DAILY ANDREW Administration Quetiapine Fumarate 200 mg 06/07/20 21:00 06/17/20 21:35 Quetiapine Fumarate 200 Mg Tablet PO 200 mg BEDTIME ANDREW Administration Sodium Chloride 3 ml 06/05/20 16:00 06/18/20 00:40 0.9 % Sodium Chloride Flush 3 Ml Syringe IVFLUSH Not Given QSHIFT ANDREW Sucralfate 1 gm 06/14/20 14:15 06/17/20 21:36 Sucralfate Oral Suspension 1 Gm/10 Ml Oral.Susp PO 1 gm BID ANDREW Administration Time Spent With Patient Time: Total time spent is greater than 50% in coordination of care (as documented) at patient's floor/unit and/or counseling patient: Time with patient: 15 - 24 minutes
[2020-06-18] MEDS: Heparin Sodium,Porcine 5,000 UNIT/ML VIAL 5000 UNIT SUBCUT ×2 (09:09→22:19)
[2020-06-18] MEDS: LORazepam 2 MG/ML VIAL 1 MG IVPUSH ×3 (09:09→22:19)
[2020-06-18] MEDS: amLODIPine Besylate 10 MG TABLET PO (09:10)
[2020-06-18] MEDS: ondansetron HCL 4 MG/2 ML VIAL IVPUSH ×3 (09:10→22:19)
[2020-06-18] MEDS: Sucralfate Oral Suspension 1 GM/10 ML ORAL.SUSP PO ×2 (09:10→22:19)
[2020-06-18] MEDS: Escitalopram Oxalate 20 MG TABLET PO (09:10)
[2020-06-18] MEDS: Acetaminophen Oral Liquid 650 MG/20.3 ML SOLUTION PO ×2 (09:10→16:42)
[2020-06-18] MEDS: QUEtiapine Fumarate 50 MG TABLET PO (09:10)
[2020-06-18] MEDS: Magnesium Sulfate/H2O 2 GM/50 ML PIGGYBACK IV (09:10)
[2020-06-18] MEDS: lisinopriL 40 MG TABLET PO (09:10)
[2020-06-18] MEDS: 0.9 % Sodium Chloride Flush 3 ML SYRINGE IVFLUSH ×3 (09:11→22:20)
--- NOTE | 2020-06-18 10:21 | MHC.CLN ---
RE: CONSULT FOR TPN PT MAY NEED PICC & TPN FOR D/C RECOMMEND D15 AA5% AT 40CC/HR TO PROVIDE 682KCALS, 48G PROTEIN PT TO DRINK 1 ISOPURE PROTEIN DRINK PROVIDES AN ADDITIONAL 160KCALS, 40G PROTEIN CAN ADD 6ML OF 20% LIPID X 12 HR TO PROVIDE 144KCALS; NOTED TRIGS 165 -MONITOR CLOSELY REPLETE LYTES NEEDED
[2020-06-18 11:41] VITALS: BP 121/59; PULSE 87; RESP 19; TEMP 36.9; O2SAT 94
--- NOTE | 2020-06-18 11:52 | HO.PICC ---
PICC Line Insertion NPICC Diagnosis: S/P GBP SURGERY Indication: POOR PO INTAKE Pertinent Labs: REVIEWED Technique: Following informed consent including risks, benefits and alternatives and using sterile technique including cap and mask, sterile gown, glove and drape, the RIGHT arm was prepped and draped in the usual sterile fashion of full barrier technique with G. Following completion of [place] Protocol the skin and soft tissues were anesthetized with 1% Lidocaine plain. Using ultrasound guidance, BASILIC vein access was obtained IN SINGLE ATTEMPT BY THIS RN. Over an 0.018 wire through peel-away sheath, a DUAL-LUMEN, PASV, 5-FRISIAN PICC line was positioned. Catheter length is 40 CM internal length, 2 CM external length, for a total trimmed length of 42 CM. The procedure was performed in -1. Tip verification was performed by Susanne Calvert with Gianna 3CG. Tip located in SVC. Ultrasound was used to document vein patency and for needle entry. A formal ultrasound picture and cardiac rhythm strip was recorded. Vascular Armhole Feller Handstitching Machine has released the line for use and it is currently dressed with a StatLock, Tegaderm, and CHG disc. Verification has been performed for blood return and line patency. Arm Circumference: 49 CM Equipment: Pump! POWERPICC SOLO Catheter Type: DUAL-LUMEN, 5-FRISIAN, PASV Lot #: [id number]
--- NOTE | 2020-06-18 12:07 | MHC.CM.PN ---
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 ELECTRONIC MEDICAL RECORD REVIEWED ALONG WITH CASE DISCUSSED WITH STAFF NURSE , PER DOCUMENTATION PATIENT CONTINUES WITH SIGNIFICANT AMOUNT OF ANXIETY PREVENTING HER FROM TAKING ADEQUATE ORAL INTAKE PATIENT IS ISOPURE CLEAR PROTEIN SHAKES BUT SHE FORGETS TO DRINK THEM AND IS NOT TAKING IN ADEQUATE ORAL INTAKE, PIC LINE IS PLACED TODAY SECONDARY TO NO IV ACCESS PER DOCUMENTATION IF PATIENT TAKES ADEQUATE ORAL INTAKE TODAY AND TOMORROW SHE QILL BE ABLE TO BE D/C TOMORROW , IF NOT THEN SHE MAY NEED TO KEEP PIC LINE AND START ON TPN DISCHARGE PLAN-INITIALLY HOME NO SERVICES , AND [facility] FOR NSG IF NEEDED , CONTINUE TO WATCH TO SEE IF SHE WILL NEED TPN
[2020-06-18] MEDS: Potassium Chloride/H20 10 MEQ/100 ML PIGGYBACK 100 MEQ IV ×4 (12:19→16:44)
[2020-06-18 15:18] VITALS: BP 139/70; PULSE 92; RESP 18; TEMP 36.4; O2SAT 93
[2020-06-18] MEDS: Ketorolac Tromethamine 15 MG/ML VIAL IV (18:44)
[2020-06-18 19:13] VITALS: BP 138/65; PULSE 69; RESP 16; TEMP 36.2; O2SAT 93
[2020-06-18] MEDS: QUEtiapine Fumarate 200 MG TABLET PO (22:19)
[2020-06-19] VITALS (9 sets, daily range): BP systolic 125–162; BP diastolic 56–77; PULSE 71–89; RESP 16–20; TEMP 36.1–36.7; O2SAT 94–100; BMI 39.6
[2020-06-19] MEDS: KCl 20 mEq in 0.45% Sod 20 MEQ/1,000 ML IV.SOLN 100 MEQ IVCONT ×3 (00:16→21:13)
[2020-06-19] MEDS: Pantoprazole Sodium 40 MG/10 ML VIAL IVPUSH ×2 (05:31→16:12)
[2020-06-19 05:50] LABS: Anion Gap 8 (12-20); Blood Urea Nitrogen 9 mg/dL (9-16); Calcium 8.1 mg/dL (8.4-10.2); Carbon Dioxide 24 mmol/L (22-29); Chloride 110 mmol/L (96-108); Creatinine Clr Calc Pharmacy 96.9; Estimated Glomerular Filt Rate > 60; Glucose Random 97 mg/dL (60-115); Magnesium 1.8 mg/dL (1.6-2.6); Potassium 3.7 mmol/L (3.3-5.1); Sodium 138 mmol/L (135-145)
[2020-06-19] MEDS: ondansetron HCL 4 MG/2 ML VIAL IVPUSH ×3 (07:27→22:32)
[2020-06-19] MEDS: LORazepam 2 MG/ML VIAL 1 MG IVPUSH ×3 (07:27→22:32)
--- NOTE | 2020-06-19 07:52 | PM.PNGS ---
Subjective Subjective Date of Service: 06/19/20 <Larisa Solorzano PA-C - Last Filed: 06/19/20 13:22> 06/19/20 <Luz Brewer MD - Last Filed: 06/19/20 11:30> Interval history: Total po intake in last 24 hrs: 17 oz. She drank the Ensure Clear yesterday, and had her PICC line placed yesterday afternoon. Today she notes nausea and is afraidto rhow up again, but has had no emesis in several days. She saw Dr. Brewer this morning and was instructed to take in two EnsureMax shakes today. <Larisa Solorzano PA-C - Last Filed: 06/19/20 13:22> Patient drink 17 oz of clear liquid protein as well as Ensure max protein shakes yesterday. Patient fell asleep for the large portion of the day and did not drink for several hours. She also was in Radiology for several hours and did not drink her protein shakes during that time. Patient was able to tolerate 17 oz without difficulty and was up and ambulating in the hallway. Patient is very anxious to go home. I told her she must be able to tolerate 2 protein shakes a day and 30-40 oz of water in addition. Patient is already been up and ambulating the hallway. Vital signs are within normal limits. Patient had a urinalysis overnight secondary to burning with urination and looks like she has a urinary tract infection which I started to treat with ceftriaxone IV every 24 hours for the next 3 days. We will monitor how the patient is doing with tolerating her protein shakes by mouth. If she is able to tolerate to 11-1/2 oz protein shakes for a total of 60 g of protein +30 to 40 oz of water we will allow her to go home without TPN. If the patient is not meeting those goals she will require TPN which will not be available until the beginning of next week. I have have ordered repeat electrolytes for tomorrow. On exam patient is sitting up in a chair comfortable in no apparent distress. Examination abdomen shows an obese soft nondistended abdomen with mild appropriate incisional tenderness. Extremities are warm well-perfused throughout without edema or tenderness. <Luz Brewer MD - Last Filed: 06/19/20 11:30> Physical Exam Vital Signs: Vital Signs: Last Vital Signs Temp 98 F 06/19/20 04:00 Pulse 82 06/19/20 03:48 Resp 20 06/19/20 03:48 BP 140/66 H 06/19/20 03:48 Pulse Ox 99 06/19/20 03:48 Body Mass Index 39.6 <Larisa Solorzano PA-C - Last Filed: 06/19/20 13:22> Const: General: cooperative, comfortable, no acute distress, alert and awake <Larisa Solorzano PA-C - Last Filed: 06/19/20 13:22> Nutritional Appearance: obese <Larisa Solorzano PA-C - Last Filed: 06/19/20 13:22> GI: Inspection: Yes normal to inspection, Yes incision (normal, slight erythema at site of surgical glue, no tenderness/warmth/drai) and Yes obesity <Larisa Solorzano PA-C - Last Filed: 06/19/20 13:22> Extrem: Right lower extremity: lower leg Details: no tenderness; no edema <Larisa Solorzano PA-C - Last Filed: 06/19/20 13:22> Left lower extremity: lower leg Details: no tenderness; no edema <Larisa Solorzano PA-C - Last Filed: 06/19/20 13:22> Progress Note: A&P Assessment and plan (1) S/P gastric bypass: Status: Acute <Larisa Solorzano PA-C - Last Filed: 06/19/20 13:22> Assessment and Plan: I spoke with patient again around 13:00 on 06/19/2020. Her nurse had alerted me that she vomited at least 90 cc. This was after taking 4 pills p.o. at the same time. She also is not tolerating the ensure max protein shake well. The decision was made to initiate TPN. I have spoken with both the inpatient dietitian and the pharmacist. Recommendations from DWAYNE Kaur below: 06/18/20 10:21 - Dietitian Progress Note by Natasha Dorman RD Acct Num: [id number] : 1955 Patient Age: 64 RE: CONSULT FOR TPN PT MAY NEED PICC & TPN FOR D/C RECOMMEND D15 AA5% AT 40CC/HR TO PROVIDE 682KCALS, 48G PROTEIN PT TO DRINK 1 ISOPURE PROTEIN DRINK PROVIDES AN ADDITIONAL 160KCALS, 40G PROTEIN CAN ADD 6ML OF 20% LIPID X 12 HR TO PROVIDE 144KCALS; NOTED TRIGS 165 -MONITOR CLOSELY REPLETE LYTES NEEDED 06/19/20 13:08 - Dietitian Progress Note by Natasha Dorman RD Acct Num: [id number] : 1955 Patient Age: 64 RE: CONSULT PT REQUIRES TPN TO MEET NUTRITION NEEDS. PICC LINE PLACED 06/18/20 RECOMMEND TPN DAY 1: D15 AA5% AT 40CC/HR TO PROVIDE 682KCALS, 48G PROTEIN DISCUSSED WITH PHARMACY AND PA; REPLETE LYTES NEEDED; MONITOR LABS; TRIGS DAY 2: INCREASE TPN TO 50CC/HR AND ADD 6ML OF 20% LIPIDS X 12 HR TO PROVIDE 996KCALS (23KCALS/KG), 60G PROTEIN PT INSTRUCTED TO DRINK 1 ISOPURE PROTEIN SUPPLEMENT PER DAY TO PROVIDE AN ADDITIONAL 160KCALS, 40G PROTEIN TO CONTINUE UPON DISCHARGE FOLLOWING Day 1 TPN: 06/19/20 (today) Day 2 TPN: 06/20/20 Day 3 TPN: 06/21/20 ? keep same as monday I saw patient again, she is asking for pain medication and states she feels weak. I explained our plan and that she and her son need to arrange that she have a case of high superior 40 g bottles at home, since the TPN will not be adequate for total protein. In the meantime she will be allowed to sip on water and Ensure Clear, but no shakes. This was discussed with attending Dr. Vargas, patient, and nursed. Also discussed with inpatient dietitian and pharmacist. <Larisa Solorzano PA-C - Last Filed: 06/19/20 13:22> Fall Risk Details Current Medications: Current Medications Generic Name Dose Route Start Last Admin Trade Name Freq PRN Reason Stop Dose Admin Acetaminophen 650 mg 06/14/20 09:50 06/18/20 16:42 Acetaminophen Oral Liquid 650 Mg/20.3 Ml Solution PO 650 mg Q4H PRN Administration Pain, Moderate (Pain Scale 4-6 Amlodipine Besylate 10 mg 06/12/20 12:40 06/18/20 09:10 Amlodipine Besylate 10 Mg Tablet PO 10 mg DAILY ANDREW Administration Protocol Escitalopram Oxalate 20 mg 06/15/20 09:00 06/18/20 09:10 Escitalopram Oxalate 20 Mg Tablet PO 20 mg DAILY ANDREW Administration Heparin Sodium (Porcine) 5,000 unit 06/10/20 10:15 06/18/20 22:19 Heparin Sodium,Porcine 5,000 Unit/Ml Vial SUBCUT 5,000 unit Q12H ANDREW Administration Hydralazine HCl 10 mg 06/06/20 08:39 06/12/20 12:25 Hydralazine Hcl 20 Mg/Ml Vial IVPUSH 10 mg Q6H PRN Administration SBP >160 Protocol Promethazine HCl 12.5 mg/ 50.5 mls @ 202 mls/hr 06/09/20 15:11 06/16/20 10:19 Sodium Chloride IV Infused Q4H PRN Infusion Nausea Potassium Chloride/Sodium Chloride 20 meq in 1,000 mls @ 100 mls/hr 06/17/20 19:00 06/19/20 00:16 IVCONT 100 mls/hr .Q10H ANDREW Administration Lisinopril 40 mg 06/12/20 12:40 06/18/20 09:10 Lisinopril 40 Mg Tablet PO 40 mg DAILY ANDREW Administration Protocol Lorazepam 1 mg 06/15/20 15:00 06/19/20 07:27 Lorazepam 2 Mg/Ml Vial IVPUSH 1 mg Q8H ANDREW Administration Ondansetron HCl 4 mg 06/05/20 15:00 06/19/20 07:27 Ondansetron Hcl 4 Mg/2 Ml Vial IVPUSH 4 mg Q8H ANDREW Administration Pantoprazole Sodium 40 mg 06/17/20 19:00 06/19/20 05:31 Pantoprazole Sodium 40 Mg/10 Ml Vial IVPUSH 40 mg BID@0630,1630 ANDREW Administration Quetiapine Fumarate 50 mg 06/08/20 09:00 06/18/20 09:10 Quetiapine Fumarate 50 Mg Tablet PO 50 mg DAILY ANDREW Administration Quetiapine Fumarate 200 mg 06/07/20 21:00 06/18/20 22:19 Quetiapine Fumarate 200 Mg Tablet PO 200 mg BEDTIME ANDREW Administration Sodium Chloride 3 ml 06/05/20 16:00 06/19/20 07:27 0.9 % Sodium Chloride Flush 3 Ml Syringe IVFLUSH Not Given QSHIFT ANDREW Sucralfate 1 gm 06/14/20 14:15 06/18/20 22:19 Sucralfate Oral Suspension 1 Gm/10 Ml Oral.Susp PO 1 gm BID ANDREW Administration <Larisa Solorzano PA-C - Last Filed: 06/19/20 13:22> Time Spent With Patient Time: Total time spent is greater than 50% in coordination of care (as documented) at patient's floor/unit and/or counseling patient: <Larisa Solorzano PA-C - Last Filed: 06/19/20 13:22> Time with patient: less than 15 minutes <Luz Brewer MD - Last Filed: 06/19/20 11:30>
[2020-06-19 08:19] LABS: Glucose Urine UA NEG (NEG); Leukocyte Esterase Urine 1+ (NEG); Nitrite Urine POS (NEG); UACC Culture Trigger YES; Urine Blood NEG (NEG); Urine Ketones NEG (NEG); Urine Protein NEG (NEG-TRACE)
[2020-06-19 08:21] LABS: Appearance Urine CLOUDY; Color Urine YELLOW
[2020-06-19 08:48] LABS: Bacteria Urine 4+ /LPF; RBC Urine 0 /HPF (0); Squamous Epithelial Cell Urine 1+ /LPF; WBC Urine 30-49 /HPF (0-4)
[2020-06-19] MEDS: Sucralfate Oral Suspension 1 GM/10 ML ORAL.SUSP PO ×2 (09:37→20:28)
[2020-06-19] MEDS: lisinopriL 40 MG TABLET PO (09:37)
[2020-06-19] MEDS: amLODIPine Besylate 10 MG TABLET PO (09:38)
[2020-06-19] MEDS: QUEtiapine Fumarate 50 MG TABLET PO (09:38)
[2020-06-19] MEDS: Escitalopram Oxalate 20 MG TABLET PO (09:38)
[2020-06-19] MEDS: Heparin Sodium,Porcine 5,000 UNIT/ML VIAL 5000 UNIT SUBCUT ×2 (10:14→20:28)
[2020-06-19] MEDS: Acetaminophen Oral Liquid 650 MG/20.3 ML SOLUTION PO (10:16)
[2020-06-19] MEDS: cefTRIAXone sodium 1 GM in 0.9 % Sodium Chloride 50 ML IV (11:31)
[2020-06-19 12:16] LABS: Albumin Level 3.3 g/dL (3.5-5.0)
--- NOTE | 2020-06-19 13:08 | MHC.CLN ---
RE: CONSULT PT REQUIRES TPN TO MEET NUTRITION NEEDS. PICC LINE PLACED 06/18/20 RECOMMEND TPN DAY 1: D15 AA5% AT 40CC/HR TO PROVIDE 682KCALS, 48G PROTEIN DISCUSSED WITH PHARMACY AND PA; REPLETE LYTES NEEDED; MONITOR LABS; TRIGS DAY 2: INCREASE TPN TO 50CC/HR AND ADD 6ML OF 20% LIPIDS X 12 HR TO PROVIDE 996KCALS (23KCALS/KG), 60G PROTEIN PT INSTRUCTED TO DRINK 1 ISOPURE PROTEIN SUPPLEMENT PER DAY TO PROVIDE AN ADDITIONAL 160KCALS, 40G PROTEIN TO CONTINUE UPON DISCHARGE FOLLOWING
[2020-06-19 13:54] LABS: Phosphorus 3.1 mg/dL (2.7-4.5); Triglycerides 159 mg/dL
--- NOTE | 2020-06-19 16:44 | MHC.CM.PN ---
PER SURGICAL PT WILL ANTICIPATED D/C Monday06/22/20 ON TPN, REFERRAL SENT TO [facility] FOLLOWING PT.
[2020-06-19] MEDS: QUEtiapine Fumarate 200 MG TABLET PO (20:28)
--- NOTE | 2020-06-19 21:38 | PM.PNGS ---
Subjective Subjective Date of Service: 06/20/20 Interval history: TPN was started yesterday at 1800. Patient notes nausea, vomiting, headache. Says she vomited 1/2 blue emesis bag (500cc) over night. Nurse reports 200cc emesis at 0300. Physical Exam Vital Signs: Vital Signs: Last Vital Signs Temp 97.7 F 06/19/20 19:59 Pulse 79 06/19/20 19:59 Resp 18 06/19/20 19:59 BP 143/67 H 06/19/20 19:59 Pulse Ox 94 06/19/20 19:59 Body Mass Index 39.6 Const: General: cooperative, comfortable, no acute distress, alert and awake Nutritional Appearance: obese GI: Inspection: Yes normal to inspection, Yes incision (normal, slight erythema at site of surgical glue, no tenderness/warmth/drai) and Yes obesity Skin: Other: lower abdominal bruising from heparin injections Extrem: Right lower extremity: lower leg Details: no tenderness; no edema Left lower extremity: lower leg Details: no tenderness; no edema Progress Note: A&P Assessment and plan (1) S/P gastric bypass: Status: Acute (2) Intestinal malabsorption following gastrectomy: Status: Acute (3) PICC (peripherally inserted central catheter) removal: Status: Acute (4) On total parenteral nutrition (TPN): Status: Acute Assessment and Plan: TPN Day #2, discussed with pharmacy and implemented RD's recommendations: DAY 2: INCREASE TPN TO 50CC/HR AND ADD 6ML OF 20% LIPIDS X 12 HR TO PROVIDE 996KCALS (23KCALS/KG), 60G PROTEIN Recheck BMO tomorrow morning, and recheck nutrition labs CMP, Mg, Phos, TG Monday morning, will be needed for home infusion services. Try for discharge Monday, discussed with case packer and sealer. Needs to have son get Isopure 40g bottles ready and at home waiting for her. Will resume NPO except for sips of water with po meds. Plan discussed with patient, nurse, and attending Dr. Brewer. Spoke with pharmacy as well, TPN runs 24 hrs, new bag will come at 1800. Lipids to start tonight will run over 12 hrs from 1800 to 0600. Fall Risk Details Current Medications: Current Medications Generic Name Dose Route Start Last Admin Trade Name Freq PRN Reason Stop Dose Admin Amlodipine Besylate 10 mg 06/12/20 12:40 06/19/20 09:38 Amlodipine Besylate 10 Mg Tablet PO 10 mg DAILY ANDREW Administration Protocol Escitalopram Oxalate 20 mg 06/15/20 09:00 06/19/20 09:38 Escitalopram Oxalate 20 Mg Tablet PO 20 mg DAILY ANDREW Administration Heparin Sodium (Porcine) 5,000 unit 06/10/20 10:15 06/19/20 20:28 Heparin Sodium,Porcine 5,000 Unit/Ml Vial SUBCUT 5,000 unit Q12H ANDREW Administration Hydralazine HCl 10 mg 06/06/20 08:39 06/12/20 12:25 Hydralazine Hcl 20 Mg/Ml Vial IVPUSH 10 mg Q6H PRN Administration SBP >160 Protocol Promethazine HCl 12.5 mg/ 50.5 mls @ 202 mls/hr 06/09/20 15:11 06/19/20 21:00 Sodium Chloride IV Infused Q4H PRN Infusion Nausea Potassium Chloride/Sodium Chloride 20 meq in 1,000 mls @ 85 mls/hr 06/17/20 19:00 06/19/20 21:13 IVCONT 100 mls/hr .[id number] ANDREW Administration Ceftriaxone Sodium 1 gm/ 50 mls @ 100 mls/hr 06/19/20 11:15 06/19/20 12:15 Sodium Chloride IV 06/23/20 11:44 Infused Q24H ANDREW Infusion Multivitamins 10 ml/ Trace 960 mls @ 40 mls/hr 06/19/20 18:00 06/19/20 18:04 Metals 1 ml/ Amino Acids/ IV 06/20/20 17:59 40 mls/hr Electrolytes DAILY@1800 ANDREW Administration Acetaminophen 1,000 mg in 100 mls @ 16.7 mls/hr 06/19/20 21:45 Ofirmev IV .Q6H ANDREW Lisinopril 40 mg 06/12/20 12:40 06/19/20 09:37 Lisinopril 40 Mg Tablet PO 40 mg DAILY ANDREW Administration Protocol Lorazepam 1 mg 06/15/20 15:00 06/19/20 15:04 Lorazepam 2 Mg/Ml Vial IVPUSH 1 mg Q8H ANDREW Administration Ondansetron HCl 4 mg 06/05/20 15:00 05/14/21 15:04 Ondansetron Hcl 4 Mg/2 Ml Vial IVPUSH 4 mg Q8H ANDREW Administration Pantoprazole Sodium 40 mg 06/17/20 19:00 06/19/20 16:12 Pantoprazole Sodium 40 Mg/10 Ml Vial IVPUSH 40 mg BID@0630,1630 ANDREW Administration Quetiapine Fumarate 50 mg 06/08/20 09:00 06/19/20 09:38 Quetiapine Fumarate 50 Mg Tablet PO 50 mg DAILY ANDREW Administration Quetiapine Fumarate 200 mg 06/07/20 21:00 06/19/20 20:28 Quetiapine Fumarate 200 Mg Tablet PO 200 mg BEDTIME ANDREW Administration Sodium Chloride 3 ml 06/05/20 16:00 06/19/20 16:02 0.9 % Sodium Chloride Flush 3 Ml Syringe IVFLUSH Not Given QSHIFT ANDREW Sucralfate 1 gm 06/14/20 14:15 06/19/20 20:28 Sucralfate Oral Suspension 1 Gm/10 Ml Oral.Susp PO 1 gm BID ANDREW Administration Time Spent With Patient Time: Total time spent is greater than 50% in coordination of care (as documented) at patient's floor/unit and/or counseling patient: Time with patient: Greater than 35 minutes
[2020-06-20] VITALS (8 sets, daily range): BP systolic 109–154; BP diastolic 55–77; PULSE 71–88; RESP 16–19; TEMP 36.3–37; O2SAT 92–100; BMI 39.7
[2020-06-20] MEDS: KCl 20 mEq in 0.45% Sod 20 MEQ/1,000 ML IV.SOLN 85 MEQ IVCONT ×2 (05:10→17:12)
[2020-06-20 06:27] LABS: Anion Gap 10 (12-20); Blood Urea Nitrogen 7 mg/dL (9-16); Calcium 8.4 mg/dL (8.4-10.2); Carbon Dioxide 26 mmol/L (22-29); Chloride 107 mmol/L (96-108); Creatinine Clr Calc Pharmacy 93.6; Estimated Glomerular Filt Rate > 60; Glucose Random 118 mg/dL (60-115); Sodium 139 mmol/L (135-145)
[2020-06-20] MEDS: LORazepam 2 MG/ML VIAL 1 MG IVPUSH ×3 (06:39→22:27)
[2020-06-20] MEDS: Pantoprazole Sodium 40 MG/10 ML VIAL IVPUSH ×2 (06:39→15:35)
[2020-06-20] MEDS: ondansetron HCL 4 MG/2 ML VIAL IVPUSH ×3 (06:39→22:27)
[2020-06-20 08:41] LABS: Magnesium 1.8 mg/dL (1.6-2.6); Phosphorus 3.1 mg/dL (2.7-4.5)
[2020-06-20] MEDS: Escitalopram Oxalate 20 MG TABLET PO (09:05)
[2020-06-20] MEDS: QUEtiapine Fumarate 50 MG TABLET PO (09:05)
[2020-06-20] MEDS: Sucralfate Oral Suspension 1 GM/10 ML ORAL.SUSP PO ×2 (09:06→21:09)
[2020-06-20] MEDS: Heparin Sodium,Porcine 5,000 UNIT/ML VIAL 5000 UNIT SUBCUT ×2 (09:06→22:27)
[2020-06-20] MEDS: HYDROmorphone HCl 0.5 MG/0.5 ML SYRINGE 0.25 MG IVPUSH (11:14)
[2020-06-20] MEDS: cefTRIAXone sodium 1 GM in 0.9 % Sodium Chloride 50 ML IV (11:15)
--- NOTE | 2020-06-20 15:28 | MHC.CM.PN ---
Addendum entered by Consuelo Velazquez 06/20/20 15:33: [facility] THEY ARE A CONTRACTED INFUSION COMPANY FOR [facility] Original Note: [facility] FOLLOWING. [facility] DOES NOT ACCEPT TPN PATIENTS. REFERRAL PLACED TO [facility], THEY ARE CONTRACTED WITH [facility]. UNSURE AT TIME IF THIS NOTE IF AGENCY ACCEPTS PATIENTS ON TPN. SHE MAY NEED SNF REFERRALS
[2020-06-20] MEDS: Fat Emulsions 20% 250 ML 6 ML IV (17:27)
[2020-06-20] MEDS: QUEtiapine Fumarate 200 MG TABLET PO (21:09)
[2020-06-21] VITALS (7 sets, daily range): BP systolic 118–138; BP diastolic 61–76; PULSE 66–78; RESP 16–20; TEMP 36–37.3; O2SAT 90–99
[2020-06-21 06:48] LABS: Anion Gap 8 (12-20); Blood Urea Nitrogen 8 mg/dL (9-16); Calcium 8.5 mg/dL (8.4-10.2); Carbon Dioxide 27 mmol/L (22-29); Chloride 109 mmol/L (96-108); Creatinine Clr Calc Pharmacy 92.1; Estimated Glomerular Filt Rate > 60; Glucose Random 115 mg/dL (60-115); Potassium 4.2 mmol/L (3.3-5.1); Sodium 140 mmol/L (135-145)
[2020-06-21 08:35] LABS: Magnesium 1.8 mg/dL (1.6-2.6); Phosphorus 3.9 mg/dL (2.7-4.5)
--- NOTE | 2020-06-21 08:47 | P.PNGS_ITS ---
Subjective Subjective Date of Service: 06/21/20 Interval history: No emesis in past 24 hours, was made NPO yesterday except for sips of water with po meds. States she will get anxious, shaky, and then headaches. Had an [place] ice yesterday, was supposed to be NPO. Physical Exam Vital Signs: Vital Signs: Last Vital Signs Temp 99.2 F 06/21/20 04:00 Pulse 75 06/21/20 04:00 Resp 16 06/21/20 04:00 BP 138/70 06/21/20 04:00 Pulse Ox 99 06/21/20 04:00 Body Mass Index 39.7 Const: General: cooperative, comfortable, no acute distress, alert and awake Nutritional Appearance: obese GI: Inspection: Yes normal to inspection, Yes incision (normal, slight erythema at site of surgical glue, no tenderness/warmth/drai) and Yes obesity Extrem: Right lower extremity: lower leg Details: no tenderness; no edema Left lower extremity: lower leg Details: no tenderness; no edema Progress Note: A&P Assessment and plan (1) On total parenteral nutrition (TPN): Status: Acute (2) PICC (peripherally inserted central catheter) removal: Status: Acute (3) S/P gastric bypass: Status: Acute Assessment and Plan: Hospital Day #16. s/p LRYGB readmitted for nausea and vomiting. PICC placed 3 days ago, TPN Day #2 currently running. 1. Recheck nutrition labs tomorrow 2. EGD tomorrow 3. Continue NPO except po meds w/ sips of water, NO [place] ice 4. Encouraged use of ICS, ambulating, shower today 5. Son buying caes of Isopure 40g protein water for her to have at home, will need to ensure they are at home before discharge 6. Spoke with mattress spring encaser yesterday, plan for discharge home with VNA and home infusion services, possibly tomorrow Discussed plan with patient, nurse, pharmacist, and Doctor Daniella. Informed nurse human resources supervisor of plan for EGD. Fall Risk Details Current Medications: Current Medications Generic Name Dose Route Start Last Admin Trade Name Freq PRN Reason Stop Dose Admin Amlodipine Besylate 10 mg 06/12/20 12:40 06/20/20 09:04 Amlodipine Besylate 10 Mg Tablet PO Not Given DAILY ANDREW Protocol Escitalopram Oxalate 20 mg 06/15/20 09:00 06/20/20 09:05 Escitalopram Oxalate 20 Mg Tablet PO 20 mg DAILY ANDREW Administration Heparin Sodium (Porcine) 5,000 unit 06/10/20 10:15 06/20/20 22:27 Heparin Sodium,Porcine 5,000 Unit/Ml Vial SUBCUT 5,000 unit Q12H ANDREW Administration Hydralazine HCl 10 mg 06/06/20 08:39 06/12/20 12:25 Hydralazine Hcl 20 Mg/Ml Vial IVPUSH 10 mg Q6H PRN Administration SBP >160 Protocol Promethazine HCl 12.5 mg/ 50.5 mls @ 202 mls/hr 06/09/20 15:11 06/20/20 03:31 Sodium Chloride IV Infused Q4H PRN Infusion Nausea Ceftriaxone Sodium 1 gm/ 50 mls @ 100 mls/hr 06/19/20 11:15 06/20/20 12:08 Sodium Chloride IV 06/23/20 11:44 Infused Q24H ANDREW Infusion Acetaminophen 1,000 mg in 100 mls @ 16.7 mls/hr 06/19/20 21:45 06/21/20 04:04 Ofirmev IV 16.7 mls/hr .Q6H ANDREW Administration Multivitamins 17 ml/ Trace 1,200 mls @ 50 mls/hr 06/20/20 18:00 06/20/20 17:19 Metals 1.7 ml/ Amino Acids/ IV 06/21/20 17:59 50 mls/hr Electrolytes DAILY@1800 ANDREW Administration Lisinopril 40 mg 06/12/20 12:40 06/20/20 09:05 Lisinopril 40 Mg Tablet PO Not Given DAILY ANDREW Protocol Lorazepam 1 mg 06/15/20 15:00 06/20/20 22:27 Lorazepam 2 Mg/Ml Vial IVPUSH 1 mg Q8H ANDREW Administration Ondansetron HCl 4 mg 06/05/20 15:00 06/20/20 22:27 Ondansetron Hcl 4 Mg/2 Ml Vial IVPUSH 4 mg Q8H ANDREW Administration Quetiapine Fumarate 50 mg 06/08/20 09:00 06/20/20 09:05 Quetiapine Fumarate 50 Mg Tablet PO 50 mg DAILY ANDREW Administration Quetiapine Fumarate 200 mg 06/07/20 21:00 06/20/20 21:09 Quetiapine Fumarate 200 Mg Tablet PO 200 mg BEDTIME ANDREW Administration Sodium Chloride 3 ml 06/05/20 16:00 06/21/20 00:14 0.9 % Sodium Chloride Flush 3 Ml Syringe IVFLUSH Not Given QSHIFT ANDREW Sucralfate 1 gm 06/14/20 14:15 06/20/20 21:09 Sucralfate Oral Suspension 1 Gm/10 Ml Oral.Susp PO 1 gm BID ANDREW Administration Time Spent With Patient Time: Total time spent is greater than 50% in coordination of care (as documented) at patient's floor/unit and/or counseling patient: Time with patient: Greater than 35 minutes
[2020-06-21] MEDS: Heparin Sodium,Porcine 5,000 UNIT/ML VIAL 5000 UNIT SUBCUT ×2 (09:15→22:15)
[2020-06-21] MEDS: Sucralfate Oral Suspension 1 GM/10 ML ORAL.SUSP PO ×2 (09:16→22:15)
[2020-06-21] MEDS: Escitalopram Oxalate 20 MG TABLET PO (09:16)
[2020-06-21] MEDS: QUEtiapine Fumarate 50 MG TABLET PO (09:16)
[2020-06-21] MEDS: ondansetron HCL 4 MG/2 ML VIAL IVPUSH ×3 (09:16→22:22)
[2020-06-21] MEDS: LORazepam 2 MG/ML VIAL 1 MG IVPUSH ×3 (09:17→22:15)
[2020-06-21] MEDS: KCl 20 mEq in 0.45% Sod 20 MEQ/1,000 ML IV.SOLN 85 MEQ IVCONT ×2 (09:18→22:19)
[2020-06-21] MEDS: cefTRIAXone sodium 1 GM in 0.9 % Sodium Chloride 50 ML IV (12:04)
[2020-06-21] MEDS: Fat Emulsions 20% 250 ML 6 ML IV (18:19)
[2020-06-21] MEDS: QUEtiapine Fumarate 200 MG TABLET PO (22:16)
[2020-06-22] VITALS (11 sets, daily range): BP systolic 124–152; BP diastolic 60–82; PULSE 73–94; RESP 16–20; TEMP 36.2–37.2; O2SAT 92–97
[2020-06-22] MEDS: ondansetron HCL 4 MG/2 ML VIAL IVPUSH ×4 (06:44→22:02)
[2020-06-22] MEDS: LORazepam 2 MG/ML VIAL 1 MG IVPUSH ×3 (06:45→21:57)
[2020-06-22 07:08] LABS: Alanine Aminotransferase 24 U/L (0-31); Albumin Level 3.6 g/dL (3.5-5.0); Alkaline Phosphatase 69 U/L (39-117); Anion Gap 10 (12-20); Aspartate Amino Transferase 19 U/L (5-31); Bilirubin Total 0.5 mg/dL (0.0-1.0); Blood Urea Nitrogen 8 mg/dL (9-16); Calcium 8.4 mg/dL (8.4-10.2); Carbon Dioxide 25 mmol/L (22-29); Chloride 109 mmol/L (96-108); Creatinine Clr Calc Pharmacy 93.7; Estimated Glomerular Filt Rate > 60; Glucose Random 120 mg/dL (60-115); Magnesium 1.8 mg/dL (1.6-2.6); Phosphorus 3.8 mg/dL (2.7-4.5); Potassium 4.3 mmol/L (3.3-5.1); Sodium 140 mmol/L (135-145); Total Protein 5.9 g/dL (6.5-8.0); Triglycerides 181 mg/dL
[2020-06-22] MEDS: amLODIPine Besylate 10 MG TABLET PO (07:54)
[2020-06-22] MEDS: Escitalopram Oxalate 20 MG TABLET PO (07:54)
[2020-06-22] MEDS: Sucralfate Oral Suspension 1 GM/10 ML ORAL.SUSP PO (07:54)
[2020-06-22] MEDS: QUEtiapine Fumarate 50 MG TABLET PO (07:54)
[2020-06-22] MEDS: lisinopriL 40 MG TABLET PO (07:54)
--- NOTE | 2020-06-22 09:17 | PM.PNGS ---
Subjective Subjective Date of Service: 06/22/20 Interval history: Patient reports feeling well today. She reports feeling thirsty and would really like to drink. She had no nausea vomiting over the weekend. Vital signs are within normal limits. Laboratory values are within normal limits as well. Patient is on TPN with IV fluids. She has been up and ambulating in the hallway. She reports intermittent headache which is resolved by a IV administration of Dilaudid. Physical Exam Vital Signs: Vital Signs: Last Vital Signs Temp 97.8 F 06/22/20 07:15 Pulse 77 06/22/20 07:15 Resp 16 06/22/20 07:15 BP 131/64 06/22/20 07:15 Pulse Ox 97 06/22/20 07:15 Body Mass Index 39.7 Const: General: cooperative, healthy appearing, comfortable and no acute distress GI: Inspection: Yes normal to inspection, No distended, Yes incision (Clean dry intact with Dermabond in place) and Yes obesity Palpation (GI): Soft to palpation, not firm, nontender, no guarding, hepatosplenomegaly present, no hernias and no masses Extrem: General: Yes normal to inspection, Yes full ROM, Yes no clubbing, cyanosis or edema and Yes no calf tenderness Progress Note: A&P Assessment and plan (1) On total parenteral nutrition (TPN): Status: Acute (2) PICC (peripherally inserted central catheter) removal: Status: Acute (3) S/P gastric bypass: Status: Acute Assessment and Plan: This is a 64-year-old lady who is almost 3 weeks pass gastric bypass conversion from sleeve gastrectomy who has had difficulty following directions in terms of drinking small amounts of clear liquid protein as well as protein shakes. She had 1 episode of vomiting 3 days ago. She is on TPN because she was not hydrating as well as she should have been orally. The plan will be to perform an endoscopy today. If her endoscopy looks normal the patient will continue on TPN and will likely be discharged home tomorrow when VNA services are available. We will continue to support the patient with drinking slowly in taking her pills 1 at a time with a 15 minutes interval in between taking each pill. Repeat labs ordered for tomorrow. Fall Risk Details Current Medications: Current Medications Generic Name Dose Route Start Last Admin Trade Name Freq PRN Reason Stop Dose Admin Amlodipine Besylate 10 mg 05/07/21 12:40 06/22/20 07:54 Amlodipine Besylate 10 Mg Tablet PO 10 mg DAILY ANDREW Administration Protocol Escitalopram Oxalate 20 mg 06/15/20 09:00 06/22/20 07:54 Escitalopram Oxalate 20 Mg Tablet PO 20 mg DAILY ANDREW Administration Heparin Sodium (Porcine) 5,000 unit 06/10/20 10:15 06/21/20 22:15 Heparin Sodium,Porcine 5,000 Unit/Ml Vial SUBCUT 5,000 unit Q12H ANDREW Administration Hydralazine HCl 10 mg 06/06/20 08:39 06/12/20 12:25 Hydralazine Hcl 20 Mg/Ml Vial IVPUSH 10 mg Q6H PRN Administration SBP >160 Protocol Promethazine HCl 12.5 mg/ 50.5 mls @ 202 mls/hr 06/09/20 15:11 06/20/20 03:31 Sodium Chloride IV Infused Q4H PRN Infusion Nausea Ceftriaxone Sodium 1 gm/ 50 mls @ 100 mls/hr 06/19/20 11:15 06/21/20 12:43 Sodium Chloride IV 06/23/20 11:44 Infused Q24H ANDREW Infusion Acetaminophen 1,000 mg in 100 mls @ 16.7 mls/hr 06/19/20 21:45 06/22/20 04:31 Ofirmev IV 16.7 mls/hr .Q6H ANDREW Administration Multivitamins 17 ml/ Trace 1,200 mls @ 50 mls/hr 06/21/20 18:00 06/21/20 18:49 Metals 1.7 ml/ Amino Acids/ IV 06/22/20 17:59 50 mls/hr Electrolytes DAILY@1800 ANDREW Administration Potassium Chloride/Sodium Chloride 20 meq in 1,000 mls @ 85 mls/hr 06/21/20 09:15 06/21/20 22:19 IVCONT 85 mls/hr .[id number] ANDREW Administration Lisinopril 40 mg 06/12/20 12:40 06/22/20 07:54 Lisinopril 40 Mg Tablet PO 40 mg DAILY ANDREW Administration Protocol Lorazepam 1 mg 06/15/20 15:00 06/22/20 06:45 Lorazepam 2 Mg/Ml Vial IVPUSH 1 mg Q8H ANDREW Administration Ondansetron HCl 4 mg 06/05/20 15:00 06/22/20 06:44 Ondansetron Hcl 4 Mg/2 Ml Vial IVPUSH 4 mg Q8H ANDREW Administration Quetiapine Fumarate 50 mg 06/08/20 09:00 06/22/20 07:54 Quetiapine Fumarate 50 Mg Tablet PO 50 mg DAILY ANDREW Administration Quetiapine Fumarate 200 mg 06/07/20 21:00 06/21/20 22:16 Quetiapine Fumarate 200 Mg Tablet PO 200 mg BEDTIME ANDREW Administration Sodium Chloride 3 ml 06/05/20 16:00 06/22/20 07:53 0.9 % Sodium Chloride Flush 3 Ml Syringe IVFLUSH Not Given QSHIFT ANDREW Sucralfate 1 gm 06/14/20 14:15 06/22/20 07:54 Sucralfate Oral Suspension 1 Gm/10 Ml Oral.Susp PO 1 gm BID ANDREW Administration Time Spent With Patient Time: Total time spent is greater than 50% in coordination of care (as documented) at patient's floor/unit and/or counseling patient: Time with patient: less than 15 minutes
[2020-06-22] MEDS: KCl 20 mEq in 0.45% Sod 20 MEQ/1,000 ML IV.SOLN 85 MEQ IVCONT (09:56)
--- NOTE | 2020-06-22 10:41 | MHC.CLN ---
F/U PT IS CURRENTLY NPO AND SCHEDULED FOR ENDOSCOPY TODAY PT REQUIRES TPN TO MEET NUTRITION NEEDS. PICC LINE PLACED 06/18/20 CONTINUE TPN D15 AA5% AT 50CC/HR TO PROVIDE 852KCALS (20KCALS/KG), 60G PROTEIN (1.4G/KG) HOLD LIPIDS TODAY FOR ELEVATED TRIGS DISCUSSED WITH PHARMACY AND PA; REPLETE LYTES NEEDED; MONITOR LABS; TRIGS FOLLOWING
--- NOTE | 2020-06-22 14:14 | HO.ANESPROP2 ---
HPI - Anesthesia Eval Consult details Narrative: 64 yo female patient here for EGD PMFSH Active Problems Active Problems: All Active Problems (Updated 06/19/20 @ 21:41 by Larisa Solorzano PA-C) On total parenteral nutrition (TPN) (Acute) PICC (peripherally inserted central catheter) removal (Acute) S/P gastric bypass (Acute) Anxiety (Acute) Nausea (Acute) HTN (hypertension), benign (Acute) Hypokalemia (Acute) Morbid obesity due to excess calories (Acute) Intestinal malabsorption following gastrectomy (Acute) Edema (Acute) Emesis (Acute) S/P laparoscopic sleeve gastrectomy (Acute) Past Medical History Medical History Anxiety Arthritis Asthma BMI 40.0-44.9, adult BMI 45.0-49.9, adult COVID-19 vaccine administered Depression Edema Emesis HTN (hypertension) Hypercholesterolemia Intestinal malabsorption following gastrectomy Nausea On total parenteral nutrition (TPN) PICC (peripherally inserted central catheter) removal Pre-op evaluation Shortness of breath Urinary tract infection Uterine anomaly Vitamin B1 deficiency Vitamin D deficiency Family History Family History Father Heart problem Heart attack Mother CHF (congestive heart failure) Hypertension High cholesterol Diabetes mellitus Knee problem Sister High cholesterol Hypertension Sister Hypertension Diabetes mellitus COPD (chronic obstructive pulmonary disease) Sister Heart problem Heart attack Diabetes mellitus Hypertension Wheelchair bound Morbidly obese Sister COPD (chronic obstructive pulmonary disease) Son No problems noted. Son Heart problem Heart attack Hypertension Diabetes mellitus Daughter Hypertension Anxiety Family history of problems with anesthesia: No Surgical History Surgical History (Updated 06/22/20 @ 14:18 by Petra Vázquez) Bilateral bunions History of arthroscopy of both knees History of bladder surgery History of repair of hiatal hernia History of sleeve gastrectomy Hx of appendectomy Hx of cholecystectomy Previous back surgery S/P gastric bypass S/P laparoscopic sleeve gastrectomy History of Problems with Anesthesia: No Social History Social History Household Members: None Housing: Apartment Do you presently have visiting nurse or other home services: No Alcohol intake: never Smoking Status: Never smoker service: No Current occupational status: disabled Meds Allergies Allergy/AdvReac Type Severity Reaction Status Date / Time Iodinated Contrast Media Allergy Severe Shortness Verified 06/05/20 13:09 of Breath sulfamethoxazole Allergy Severe Rash Verified 06/05/20 13:09 [From Bactrim] trimethoprim [From Bactrim] Allergy Severe Rash Verified 06/05/20 13:09 hydrocodone Allergy Rash Verified 06/05/20 13:09 Active Medications: Current Medications Generic Name Dose Route Start Last Admin Trade Name Freq PRN Reason Stop Dose Admin Amlodipine Besylate 10 mg 06/12/20 12:40 06/22/20 07:54 Amlodipine Besylate 10 Mg Tablet PO 10 mg DAILY ANDREW Administration Protocol Escitalopram Oxalate 20 mg 06/15/20 09:00 06/22/20 07:54 Escitalopram Oxalate 20 Mg Tablet PO 20 mg DAILY ANDREW Administration Heparin Sodium (Porcine) 5,000 unit 06/10/20 10:15 06/22/20 09:51 Heparin Sodium,Porcine 5,000 Unit/Ml Vial SUBCUT Not Given Q12H ANDREW Hydralazine HCl 10 mg 06/06/20 08:39 06/12/20 12:25 Hydralazine Hcl 20 Mg/Ml Vial IVPUSH 10 mg Q6H PRN Administration SBP >160 Protocol Promethazine HCl 12.5 mg/ 50.5 mls @ 202 mls/hr 06/09/20 15:11 06/20/20 03:31 Sodium Chloride IV Infused Q4H PRN Infusion Nausea Ceftriaxone Sodium 1 gm/ 50 mls @ 100 mls/hr 06/19/20 11:15 06/21/20 12:43 Sodium Chloride IV 06/23/20 11:44 Infused Q24H ANDREW Infusion Acetaminophen 1,000 mg in 100 mls @ 16.7 mls/hr 06/19/20 21:45 06/22/20 09:54 Ofirmev IV 06/22/20 21:36 16.7 mls/hr .Q6H ANDREW Administration Multivitamins 17 ml/ Trace 1,200 mls @ 50 mls/hr 06/21/20 18:00 06/21/20 18:49 Metals 1.7 ml/ Amino Acids/ IV 06/22/20 17:59 50 mls/hr Electrolytes DAILY@1800 ANDREW Administration Potassium Chloride/Sodium Chloride 20 meq in 1,000 mls @ 85 mls/hr 06/21/20 09:15 06/22/20 09:56 IVCONT 85 mls/hr .[id number] ANDREW Administration Multivitamins 17 ml/ Trace 1,200 mls @ 50 mls/hr 06/22/20 18:00 Metals 1.7 ml/ Amino Acids/ IV 06/23/20 17:59 Electrolytes DAILY@1800 [facility] Lisinopril 40 mg 06/12/20 12:40 06/22/20 07:54 Lisinopril 40 Mg Tablet PO 40 mg DAILY ANDREW Administration Protocol Lorazepam 1 mg 06/15/20 15:00 06/22/20 06:45 Lorazepam 2 Mg/Ml Vial IVPUSH 1 mg Q8H ANDREW Administration Ondansetron HCl 4 mg 06/05/20 15:00 06/22/20 06:44 Ondansetron Hcl 4 Mg/2 Ml Vial IVPUSH 4 mg Q8H ANDREW Administration Quetiapine Fumarate 50 mg 06/08/20 09:00 06/22/20 07:54 Quetiapine Fumarate 50 Mg Tablet PO 50 mg DAILY ANDREW Administration Quetiapine Fumarate 200 mg 06/07/20 21:00 06/21/20 22:16 Quetiapine Fumarate 200 Mg Tablet PO 200 mg BEDTIME ANDREW Administration Sodium Chloride 3 ml 06/05/20 16:00 06/22/20 07:53 0.9 % Sodium Chloride Flush 3 Ml Syringe IVFLUSH Not Given QSHIFT [facility] Sucralfate 1 gm 06/14/20 14:15 06/22/20 07:54 Sucralfate Oral Suspension 1 Gm/10 Ml Oral.Susp PO 1 gm BID ANDREW Administration Home Medications Medication Instructions Recorded Confirmed Last Taken Type amlodipine 10 mg tablet 10 mg PO DAILY 03/13/20 06/05/20 06/03/20 05:00 History atorvastatin 40 mg tablet 40 mg PO DAILY 03/13/20 06/05/20 Unknown History citalopram 40 mg tablet 20 mg PO DAILY 03/13/20 06/05/20 06/03/20 05:00 History clonazepam 1 mg tablet 1 mg PO BEDTIME 03/13/20 06/05/20 Unknown History cyanocobalamin (vitamin B-12) 500 500 mcg PO DAILY 03/13/20 06/05/20 Unknown History mcg tablet hydrochlorothiazide 25 mg tablet 25 mg PO DAILY 03/13/20 06/05/20 Unknown History lisinopril 40 mg tablet 40 mg PO DAILY 03/13/20 06/05/20 Unknown History multivitamin with minerals-folic 1 tab PO DAILY 03/13/20 06/05/20 Unknown History acid 80 mcg chewable tablet oxcarbazepine 300 mg tablet 300 mg PO BID 03/13/20 06/05/20 06/03/20 05:00 History quetiapine 50 mg tablet 50 mg PO BEDTIME 03/13/20 06/05/20 Unknown History albuterol sulfate 90 mcg/actuation 1 inh INHALATION QID PRN 05/04/20 06/05/20 Unknown History aerosol inhaler albuterol sulfate 2.5 mg INHALATION Q4H PRN 05/26/20 06/05/20 Unknown History quetiapine [Seroquel] 200 mg PO BEDTIME 05/26/20 06/05/20 Unknown History Exam Exam Date and Time: June 22, 2020 1414 Height,Weight and Vital Signs: Height 4 ft 11 in Weight 89.3 kg Last Vital Signs Temp 98.9 F 06/22/20 11:19 Pulse 73 06/22/20 11:19 Resp 18 06/22/20 11:19 BP 124/62 06/22/20 11:19 Pulse Ox 97 06/22/20 11:19 Pertinent Lab Results Pertinent Lab Results: Laboratory Tests 06/05/20 06/05/20 06/06/20 16:29 16:29 04:48 WBC 10.9 H RBC 5.31 Hgb 15.8 Hct 45.5 MCV 85.7 MCH 29.8 MCHC 34.7 RDW 13.5 Plt Count 260 MPV 10.2 Immature Gran % (Auto) 0.4 Neut % (Auto) 81.2 H Lymph % (Auto) 13.0 L [place] % (Auto) 5.2 Eos % (Auto) 0.0 Baso % (Auto) 0.2 Lymph # (Auto) 1.4 [place] # (Auto) 0.6 Eos # (Auto) 0.0 Baso # (Auto) 0.0 Abs Immat Gran (auto) 0.04 H Absolute Neuts (auto) 8.9 H Absolute Nucleated RBC 0.000 Nucleated RBC % (auto) 0.0 Smear Tech's Comments Smear Path Review Cancelled Sodium 140 140 Potassium 3.5 3.5 Chloride 104 109 H Carbon Dioxide 22 18 L Anion Gap 18 17 BUN 13 14 Creatinine 0.66 0.63 Estim Creat Clear Calc 84.2 88.1 Estimated GFR > 60 > 60 POC Glucose Random Glucose 135 H 105 Fasting Glucose Calcium 8.6 8.1 L Phosphorus 2.4 L Magnesium 2.3 Total Bilirubin 1.0 AST 161 H ALT 283 H Alkaline Phosphatase 85 Total Protein 7.5 Albumin 4.4 Triglycerides Cholesterol LDL Cholesterol, Calc HDL Cholesterol Urine Color Urine Appearance Urine pH Ur Specific [place] Urine Protein Urine Glucose (UA) Urine Ketones Urine Blood Urine Nitrite Ur Leukocyte Esterase Urine RBC Urine WBC Ur Squamous Epith Cells Urine Bacteria 06/07/20 06/09/20 06/09/20 08:36 09:01 09:01 WBC 7.1 RBC 4.46 Hgb 13.1 Hct 38.2 MCV 85.7 MCH 29.4 MCHC 34.3 RDW 13.8 Plt Count 229 MPV 10.4 Immature Gran % (Auto) 0.3 Neut % (Auto) 56.0 Lymph % (Auto) 34.5 [place] % (Auto) 7.3 Eos % (Auto) 1.8 Baso % (Auto) 0.1 Lymph # (Auto) 2.5 [place] # (Auto) 0.5 Eos # (Auto) 0.1 Baso # (Auto) 0.0 Abs Immat Gran (auto) 0.02 Absolute Neuts (auto) 4.0 Absolute Nucleated RBC 0.000 Nucleated RBC % (auto) 0.0 Smear Tech's Comments VERIFIED Smear Path Review Sodium 137 139 Potassium 3.5 3.4 Chloride 103 104 Carbon Dioxide 23 24 Anion Gap 15 14 BUN 9 8 L Creatinine 0.59 0.59 Estim Creat Clear Calc 94.2 94.2 Estimated GFR > 60 > 60 POC Glucose Random Glucose 95 91 Fasting Glucose Calcium 8.5 8.4 Phosphorus Magnesium Total Bilirubin 0.8 AST 21 D ALT 60 H Alkaline Phosphatase 67 D Total Protein 6.2 L Albumin 3.7 Triglycerides Cholesterol LDL Cholesterol, Calc HDL Cholesterol Urine Color Urine Appearance Urine pH Ur Specific [place] Urine Protein Urine Glucose (UA) Urine Ketones Urine Blood Urine Nitrite Ur Leukocyte Esterase Urine RBC Urine WBC Ur Squamous Epith Cells Urine Bacteria 06/10/20 06/10/20 06/11/20 04:22 10:16 04:23 WBC RBC Hgb Hct MCV MCH MCHC RDW Plt Count MPV Immature Gran % (Auto) Neut % (Auto) Lymph % (Auto) [place] % (Auto) Eos % (Auto) Baso % (Auto) Lymph # (Auto) [place] # (Auto) Eos # (Auto) Baso # (Auto) Abs Immat Gran (auto) Absolute Neuts (auto) Absolute Nucleated RBC Nucleated RBC % (auto) Smear Tech's Comments Smear Path Review Sodium 138 140 Potassium 3.0 L 3.1 L Chloride 103 106 Carbon Dioxide 23 22 Anion Gap 15 15 BUN 6 L 5 L Creatinine 0.57 0.56 Estim Creat Clear Calc 97.5 99.2 Estimated GFR > 60 > 60 POC Glucose 92 Random Glucose 84 79 Fasting Glucose Calcium 8.3 L 8.2 L Phosphorus Magnesium Total Bilirubin AST ALT Alkaline Phosphatase Total Protein Albumin Triglycerides Cholesterol LDL Cholesterol, Calc HDL Cholesterol Urine Color Urine Appearance Urine pH Ur Specific [place] Urine Protein Urine Glucose (UA) Urine Ketones Urine Blood Urine Nitrite Ur Leukocyte Esterase Urine RBC Urine WBC Ur Squamous Epith Cells Urine Bacteria 06/12/20 06/12/20 06/13/20 04:40 11:54 05:02 WBC RBC Hgb Hct MCV MCH MCHC RDW Plt Count MPV Immature Gran % (Auto) Neut % (Auto) Lymph % (Auto) [place] % (Auto) Eos % (Auto) Baso % (Auto) Lymph # (Auto) [place] # (Auto) Eos # (Auto) Baso # (Auto) Abs Immat Gran (auto) Absolute Neuts (auto) Absolute Nucleated RBC Nucleated RBC % (auto) Smear Tech's Comments Smear Path Review Sodium 137 139 Potassium 3.2 L 4.0 D 3.4 Chloride 103 108 Carbon Dioxide 22 24 Anion Gap 15 10 L BUN 3 L 3 L Creatinine 0.55 0.62 Estim Creat Clear Calc 101.7 90.2 Estimated GFR > 60 > 60 POC Glucose Random Glucose 126 H D Fasting Glucose 139 H Calcium 8.2 L 8.2 L Phosphorus 2.8 Magnesium 1.6 Total Bilirubin AST ALT Alkaline Phosphatase Total Protein Albumin Triglycerides Cholesterol LDL Cholesterol, Calc HDL Cholesterol Urine Color Urine Appearance Urine pH Ur Specific [place] Urine Protein Urine Glucose (UA) Urine Ketones Urine Blood Urine Nitrite Ur Leukocyte Esterase Urine RBC Urine WBC Ur Squamous Epith Cells Urine Bacteria 06/14/20 06/15/20 06/15/20 10:05 06:00 08:07 WBC RBC Hgb Hct MCV MCH MCHC RDW Plt Count MPV Immature Gran % (Auto) Neut % (Auto) Lymph % (Auto) [place] % (Auto) Eos % (Auto) Baso % (Auto) Lymph # (Auto) [place] # (Auto) Eos # (Auto) Baso # (Auto) Abs Immat Gran (auto) Absolute Neuts (auto) Absolute Nucleated RBC Nucleated RBC % (auto) Smear Tech's Comments Smear Path Review Sodium 142 143 Potassium 4.1 D 3.8 Chloride 109 H 108 Carbon Dioxide 26 26 Anion Gap 11 L 13 BUN 3 L 4 L Creatinine 0.67 0.64 Estim Creat Clear Calc 83.4 88.2 Estimated GFR > 60 > 60 POC Glucose Random Glucose 118 H 109 Fasting Glucose Calcium 9.0 D 8.9 Phosphorus Magnesium 1.6 Total Bilirubin AST ALT Alkaline Phosphatase Total Protein Albumin Triglycerides Cholesterol LDL Cholesterol, Calc HDL Cholesterol Urine Color Urine Appearance Urine pH Ur Specific [place] Urine Protein Urine Glucose (UA) Urine Ketones Urine Blood Urine Nitrite Ur Leukocyte Esterase Urine RBC Urine WBC Ur Squamous Epith Cells Urine Bacteria 06/17/20 06/18/20 06/18/20 06:14 06:00 Unknown WBC 4.6 L RBC 4.16 L Hgb 12.6 Hct 36.7 L MCV 88.2 MCH 30.3 MCHC 34.3 RDW 15.0 Plt Count 282 MPV 9.7 Immature Gran % (Auto) 0.2 Neut % (Auto) 51.5 Lymph % (Auto) 36.0 [place] % (Auto) 9.7 Eos % (Auto) 2.2 Baso % (Auto) 0.4 Lymph # (Auto) 1.6 [place] # (Auto) 0.4 Eos # (Auto) 0.1 Baso # (Auto) 0.0 Abs Immat Gran (auto) 0.01 Absolute Neuts (auto) 2.3 Absolute Nucleated RBC 0.000 Nucleated RBC % (auto) 0.0 Smear Tech's Comments Smear Path Review Sodium 142 139 Potassium 3.4 3.4 Chloride 107 106 Carbon Dioxide 24 25 Anion Gap 14 11 L BUN 8 L D 10 Creatinine 0.66 0.62 Estim Creat Clear Calc 85.5 89.1 Estimated GFR > 60 > 60 POC Glucose Random Glucose 102 93 Fasting Glucose Calcium 8.6 8.3 L Phosphorus 3.6 Magnesium 1.8 Total Bilirubin 0.9 AST 23 ALT 25 Alkaline Phosphatase 71 Total Protein 5.9 L Albumin 3.5 Triglycerides 165 Cholesterol 131 D LDL Cholesterol, Calc 76 HDL Cholesterol 22 D Urine Color Urine Appearance Urine pH Ur Specific [place] Urine Protein Urine Glucose (UA) Urine Ketones Urine Blood Urine Nitrite Ur Leukocyte Esterase Urine RBC Urine WBC Ur Squamous Epith Cells Urine Bacteria 06/19/20 06/19/20 06/19/20 04:44 07:39 13:03 WBC RBC Hgb Hct MCV MCH MCHC RDW Plt Count MPV Immature Gran % (Auto) Neut % (Auto) Lymph % (Auto) [place] % (Auto) Eos % (Auto) Baso % (Auto) Lymph # (Auto) [place] # (Auto) Eos # (Auto) Baso # (Auto) Abs Immat Gran (auto) Absolute Neuts (auto) Absolute Nucleated RBC Nucleated RBC % (auto) Smear Tech's Comments Smear Path Review Sodium 138 Potassium 3.7 Chloride 110 H Carbon Dioxide 24 Anion Gap 8 L BUN 9 Creatinine 0.57 Estim Creat Clear Calc 96.9 Estimated GFR > 60 POC Glucose Random Glucose 97 Fasting Glucose Calcium 8.1 L Phosphorus 3.1 Magnesium 1.8 Total Bilirubin AST ALT Alkaline Phosphatase Total Protein Albumin 3.3 L Triglycerides 159 Cholesterol LDL Cholesterol, Calc HDL Cholesterol Urine Color YELLOW Urine Appearance CLOUDY Urine pH 6.0 Ur Specific [place] 1.020 Urine Protein NEG Urine Glucose (UA) NEG Urine Ketones NEG Urine Blood NEG Urine Nitrite POS H Ur Leukocyte Esterase 1+ H Urine RBC 0 Urine WBC 30-49 H Ur Squamous Epith Cells 1+ Urine Bacteria 4+ 06/20/20 06/21/20 06/22/20 05:26 05:49 06:05 WBC RBC Hgb Hct MCV MCH MCHC RDW Plt Count MPV Immature Gran % (Auto) Neut % (Auto) Lymph % (Auto) [place] % (Auto) Eos % (Auto) Baso % (Auto) Lymph # (Auto) [place] # (Auto) Eos # (Auto) Baso # (Auto) Abs Immat Gran (auto) Absolute Neuts (auto) Absolute Nucleated RBC Nucleated RBC % (auto) Smear Tech's Comments Smear Path Review Sodium 139 140 140 Potassium 4.0 4.2 4.3 Chloride 107 109 H 109 H Carbon Dioxide 26 27 25 Anion Gap 10 L 8 L 10 L BUN 7 L 8 L 8 L Creatinine 0.59 0.60 0.59 Estim Creat Clear Calc 93.6 92.1 93.7 Estimated GFR > 60 > 60 > 60 POC Glucose Random Glucose 118 H 115 120 H Fasting Glucose Calcium 8.4 8.5 8.4 Phosphorus 3.1 3.9 3.8 Magnesium 1.8 1.8 1.8 Total Bilirubin 0.5 AST 19 ALT 24 Alkaline Phosphatase 69 Total Protein 5.9 L Albumin 3.6 Triglycerides 181 Cholesterol LDL Cholesterol, Calc HDL Cholesterol Urine Color Urine Appearance Urine pH Ur Specific [place] Urine Protein Urine Glucose (UA) Urine Ketones Urine Blood Urine Nitrite Ur Leukocyte Esterase Urine RBC Urine WBC Ur Squamous Epith Cells Urine Bacteria Airway Mallampati Class: II TM Dist: >3cm Neck ROM: Full Heart: RRR Lungs: CTAB Assessment and Plan Assessment Anesthesia Assessment: Anesthesia Plan Discussed and Chart Reviewed Final Anesthetic Review NPO: Yes ASA Class: III Final Preanesthetic Review: No Changes in Pt Med Stat, Meds/Allgs Chart Reviewed, Consent Obtained/Reviewed and Anes Risks/Benef Reviewed Patient Risk: Intermediate Procedure Risk: Low Assessment/Block/Sedation in SS: Assess/Block/Sedation-SS Anesthetic Plan Anesthetic Plan: MAC: Disposition: Inp. Admit - Standard Bed
[2020-06-22] MEDS: Lactated Ringers 1,000 ML 100 ML IVCONT (14:21)
--- NOTE | 2020-06-22 15:12 | PM.OP ---
Brief Operative Note Date of Service: 06/22/20 Pre-op diagnosis: Nausea vomiting status post gastric bypass Post-op diagnosis: other (Anastomotic stenosis) Procedure: Esophagogastrojejunostomy with through the scope balloon dilation of a 8-10 mm balloon and a 10-12 mm balloon Implants: None Surgeon: Luz Brewer MD Anesthesia: MAC Was an [employer] used for this Procedure?: No Estimated blood loss (mL): 0 Pathology: none sent Condition: stable Disposition: PACU
--- NOTE | 2020-06-22 15:38 | OP_ITS ---
SURGEON: Luz Brewer MD PREOPERATIVE DIAGNOSIS: POSTOPERATIVE DIAGNOSIS: PROCEDURE PERFORMED: ESTIMATED BLOOD LOSS: COMPLICATIONS: None. ANESTHESIA: Total intravenous anesthesia with propofol given by the nurse bedspread seamer. ASSISTANTS: None. SPECIMENS: PREPROCEDURE DIAGNOSES: Nausea and vomiting, status post gastric bypass about 2-1/2 weeks ago. POSTPROCEDURE DIAGNOSIS: Anastomotic stricture. PROCEDURES PERFORMED: Esophagogastrojejunoscopy with balloon dilation through the scope with 8 to 10 mm balloon and a 10 to 12 mm balloon. FINDINGS: Stenosis of the gastrojejunal anastomosis down to about 5 to 6 mm in size. CONDITION: Postprocedure, good. DESCRIPTION OF PROCEDURE: The patient was brought into the endoscopy suite on the stretcher and placed in the left lateral decubitus position. A safety time-out was performed. A bite block was placed between the teeth. Total intravenous anesthesia was administered using propofol by the nurse bedspread seamer. Once the patient was adequately sedated, the gastroscope was placed into posterior oropharynx and passed down the esophagus, evaluating the esophageal mucosa which was normal. The GE junction that was located at 37 cm from the incisors. The gastroscope was passed into the gastric pouch, which was normal. The gastroscope was passed to the end of the gastric pouch and there was stenosis of the gastrojejunal anastomosis, which was down to a size of about 6 mm in size and was unable to allow the endoscope in. I then used a [id number] balloon of 8 to 10 mm in size and placed it across the stenosis and blew up the balloon to 8 mmHg and left it there for 1 minute, then up to 9 mmHg and left it there for additional minute and then up to 10 mmHg and left it there for an additional minute. We took the balloon down and removed it from the scope. We were able to easily traverse the anastomosis and get into the Indra limb, which was healthy and normal. These portions of the upper endoscopy were documented using photo documentation. Next, we used an additional 10 to 12 mm balloon through the scope across the anastomosis and blew the balloon up to 10 mmHg and left it there for 1 minute. We then blew the balloon up to 11 mm Hg, left it there for an additional minute and then up to 12 mmHg and left it there for an additional minute. There was no significant bleeding after this therapeutic intervention. We were able to easily traversed the anastomosis without difficulty. The anastomosis was located at about 44 cm from the incisors. The gastroscope was then placed again into the Indra limb. The Indra limb was desufflated and then pulled back into the stomach and that was desufflated and removed without difficulty. The patient tolerated the procedure well and was sent to recovery room in stable condition. MD PRAVEEN Melton/MODL / [id number]
[2020-06-22] MEDS: fentaNYL citrate/PF 100 MCG/2 ML VIAL 50 MCG IVPUSH ×2 (15:59→16:06)
[2020-06-22] MEDS: 0.9 % Sodium Chloride Flush 3 ML SYRINGE IVFLUSH (16:57)
[2020-06-23] VITALS: BP 160/81; PULSE 96; RESP 16; TEMP 37.4; O2SAT 94
[2020-06-23] MEDS: Lactated Ringers 1,000 ML 100 ML IVCONT (01:01)
[2020-06-23] MEDS: KCl 20 mEq in 0.45% Sod 20 MEQ/1,000 ML IV.SOLN 85 MEQ IVCONT (01:25)
[2020-06-23 04:00] VITALS: BP 156/71; PULSE 73; RESP 17; TEMP 37.2; O2SAT 97
[2020-06-23 05:01] LABS: Anion Gap 11 (12-20); Blood Urea Nitrogen 7 mg/dL (9-16); Calcium 9.2 mg/dL (8.4-10.2); Carbon Dioxide 27 mmol/L (22-29); Chloride 106 mmol/L (96-108); Creatinine Clr Calc Pharmacy 90.6; Estimated Glomerular Filt Rate > 60; Glucose Random 125 mg/dL (60-115); Magnesium 1.8 mg/dL (1.6-2.6); Phosphorus 3.3 mg/dL (2.7-4.5); Potassium 4.1 mmol/L (3.3-5.1); Sodium 140 mmol/L (135-145)
[2020-06-23] MEDS: LORazepam 2 MG/ML VIAL 1 MG IVPUSH (06:13)
[2020-06-23 07:25] VITALS: BP 144/82; PULSE 68; RESP 19; TEMP 36.4; O2SAT 98
[2020-06-23] MEDS: Escitalopram Oxalate 20 MG TABLET PO (08:35)
--- NOTE | 2020-06-23 08:59 | PM.PNGS ---
Subjective Subjective Date of Service: 06/23/20 Interval history: POD #1: Patient is doing well. Has been ambulating, using the incentive spirometer, and tolerating po liquids. No nausea or abdominal pain. Has some mild incisional pain. Nervous to drink. I showed her pictures taken during endoscopy and before and after images of her GJ, widely patent s/p balloon dilation. Phase 3 ordered yesterday afternoon. Physical Exam Vital Signs: Vital Signs: Last Vital Signs Temp 97.6 F 06/23/20 07:25 Pulse 68 06/23/20 07:25 Resp 19 06/23/20 07:25 BP 144/82 H 06/23/20 07:25 Pulse Ox 98 06/23/20 07:25 Body Mass Index 39.7 Const: General: cooperative, comfortable, no acute distress, alert and awake Nutritional Appearance: obese GI: Inspection: Yes normal to inspection, Yes incision (normal, slight erythema at site of surgical glue, no tenderness/warmth/drai) and Yes obesity Extrem: Right lower extremity: lower leg Details: no tenderness; no edema Left lower extremity: lower leg Details: no tenderness; no edema Progress Note: A&P Assessment and plan (1) S/P gastric bypass: Status: Acute (2) PICC (peripherally inserted central catheter) removal: Status: Acute (3) On total parenteral nutrition (TPN): Status: Acute (4) Hx of endoscopy: Status: Acute Assessment and Plan: Discharged after 18 HD, home with PICC and TPN. All instructions given in writing. Fall Risk Details Current Medications: Current Medications Generic Name Dose Route Start Last Admin Trade Name Randalq PRN Reason Stop Dose Admin Amlodipine Besylate 10 mg 06/12/20 12:40 06/22/20 07:54 Amlodipine Besylate 10 Mg Tablet PO 10 mg DAILY ANDREW Administration Protocol Escitalopram Oxalate 20 mg 06/15/20 09:00 06/23/20 08:35 Escitalopram Oxalate 20 Mg Tablet PO 20 mg DAILY ANDREW Administration Heparin Sodium (Porcine) 5,000 unit 06/10/20 10:15 06/22/20 09:51 Heparin Sodium,Porcine 5,000 Unit/Ml Vial SUBCUT Not Given Q12H ANDREW Hydralazine HCl 10 mg 06/06/20 08:39 06/12/20 12:25 Hydralazine Hcl 20 Mg/Ml Vial IVPUSH 10 mg Q6H PRN Administration SBP >160 Protocol Promethazine HCl 12.5 mg/ 50.5 mls @ 202 mls/hr 06/09/20 15:11 06/20/20 03:31 Sodium Chloride IV Infused Q4H PRN Infusion Nausea Ceftriaxone Sodium 1 gm/ 50 mls @ 100 mls/hr 06/19/20 11:15 06/22/20 16:37 Sodium Chloride IV 06/23/20 11:44 Not Given Q24H ANDREW Acetaminophen 1,000 mg in 100 mls @ 16.7 mls/hr 06/19/20 21:45 06/22/20 16:52 Ofirmev IV 06/23/20 13:54 Not Given .Q6H ANDREW Potassium Chloride/Sodium Chloride 20 meq in 1,000 mls @ 85 mls/hr 06/21/20 09:15 06/23/20 07:23 IVCONT Not Given .[id number] ANDREW Multivitamins 17 ml/ Trace 1,200 mls @ 50 mls/hr 06/22/20 18:00 06/22/20 18:06 Metals 1.7 ml/ Amino Acids/ IV 06/23/20 17:59 50 mls/hr Electrolytes DAILY@1800 ANDREW Administration Lisinopril 40 mg 06/12/20 12:40 06/22/20 07:54 Lisinopril 40 Mg Tablet PO 40 mg DAILY ANDREW Administration Protocol Lorazepam 1 mg 06/15/20 15:00 06/23/20 06:13 Lorazepam 2 Mg/Ml Vial IVPUSH 1 mg Q8H ANDREW Administration Ondansetron HCl 4 mg 06/05/20 15:00 06/22/20 22:02 Ondansetron Hcl 4 Mg/2 Ml Vial IVPUSH 4 mg Q8H ANDREW Administration Quetiapine Fumarate 50 mg 06/08/20 09:00 06/22/20 07:54 Quetiapine Fumarate 50 Mg Tablet PO 50 mg DAILY ANDREW Administration Quetiapine Fumarate 200 mg 06/07/20 21:00 06/21/20 22:16 Quetiapine Fumarate 200 Mg Tablet PO 200 mg BEDTIME ANDREW Administration Sodium Chloride 3 ml 06/05/20 16:00 06/23/20 07:16 0.9 % Sodium Chloride Flush 3 Ml Syringe IVFLUSH Not Given QSHIFT ANDREW Sucralfate 1 gm 06/14/20 14:15 06/22/20 07:54 Sucralfate Oral Suspension 1 Gm/10 Ml Oral.Susp PO 1 gm BID ANDREW Administration Time Spent With Patient Time: Total time spent is greater than 50% in coordination of care (as documented) at patient's floor/unit and/or counseling patient: Time with patient: Greater than 35 minutes Procedures Date of Service Date of Service: 06/23/20
[2020-06-23] MEDS: lisinopriL 40 MG TABLET PO (09:03)
[2020-06-23] MEDS: Sucralfate Oral Suspension 1 GM/10 ML ORAL.SUSP PO (09:03)
[2020-06-23] MEDS: QUEtiapine Fumarate 50 MG TABLET PO (09:03)
[2020-06-23] MEDS: amLODIPine Besylate 10 MG TABLET PO (09:03)
[2020-06-23] MEDS: HYDROmorphone HCl 0.5 MG/0.5 ML SYRINGE 0.25 MG IVPUSH (09:04)
[2020-06-23] MEDS: Heparin Sodium,Porcine 5,000 UNIT/ML VIAL 5000 UNIT SUBCUT (09:04)
--- NOTE | 2020-06-23 09:32 | PM.PNGS ---
Subjective Subjective Date of Service: 06/23/20 Interval history: Patient had endoscopy yesterday where a stenosis was found of the gastrojejunal anastomosis. This was balloon dilated and is now widely patent. Patient was started on a stage III diet which she tolerated some of. She denies any nausea or vomiting. She does report having headache this morning. Labs are within normal limits in addition to vital signs. Physical Exam Vital Signs: Vital Signs: Last Vital Signs Temp 97.6 F 06/23/20 07:25 Pulse 68 06/23/20 07:25 Resp 19 06/23/20 07:25 BP 144/82 H 06/23/20 07:25 Pulse Ox 98 06/23/20 07:25 Body Mass Index 39.7 Const: General: cooperative, healthy appearing, comfortable and no acute distress GI: Inspection: Yes normal to inspection, No distended, Yes incision (Clean dry intact with Dermabond in place) and Yes obesity Palpation (GI): Soft to palpation, not firm, nontender, no guarding, hepatosplenomegaly present, no hernias and no masses Extrem: General: Yes normal to inspection, Yes full ROM, Yes no clubbing, cyanosis or edema and Yes no calf tenderness Progress Note: A&P Assessment and plan (1) Edema: Status: Acute (2) S/P gastric bypass: Status: Acute (3) Intestinal malabsorption following gastrectomy: Status: Acute (4) Morbid obesity due to excess calories: Status: Acute (5) Emesis: Status: Acute (6) Nausea: Status: Acute Assessment and Plan: This is a 64-year-old lady who is almost 3 weeks pass gastric bypass conversion from sleeve gastrectomy. Patient underwent balloon dilation anastomotic stricture yesterday with good result. Patient is on stage III bariatric diet but has only started this morning. Patient will be discharged home today on stage III diet in addition to TPN. She will follow-up in about 1 week in the office. Fall Risk Details Current Medications: Current Medications Generic Name Dose Route Start Last Admin Trade Name Freq PRN Reason Stop Dose Admin Amlodipine Besylate 10 mg 06/12/20 12:40 06/23/20 09:03 Amlodipine Besylate 10 Mg Tablet PO 10 mg DAILY ANDREW Administration Protocol Escitalopram Oxalate 20 mg 06/15/20 09:00 06/23/20 08:35 Escitalopram Oxalate 20 Mg Tablet PO 20 mg DAILY ANDREW Administration Heparin Sodium (Porcine) 5,000 unit 06/10/20 10:15 06/23/20 09:04 Heparin Sodium,Porcine 5,000 Unit/Ml Vial SUBCUT 5,000 unit Q12H ANDREW Administration Hydralazine HCl 10 mg 06/06/20 08:39 06/12/20 12:25 Hydralazine Hcl 20 Mg/Ml Vial IVPUSH 10 mg Q6H PRN Administration SBP >160 Protocol Promethazine HCl 12.5 mg/ 50.5 mls @ 202 mls/hr 06/09/20 15:11 06/20/20 03:31 Sodium Chloride IV Infused Q4H PRN Infusion Nausea Ceftriaxone Sodium 1 gm/ 50 mls @ 100 mls/hr 06/19/20 11:15 06/22/20 16:37 Sodium Chloride IV 06/23/20 11:44 Not Given Q24H ANDREW Acetaminophen 1,000 mg in 100 mls @ 16.7 mls/hr 06/19/20 21:45 06/22/20 16:52 Ofirmev IV 06/23/20 13:54 Not Given .Q6H ANDREW Potassium Chloride/Sodium Chloride 20 meq in 1,000 mls @ 85 mls/hr 06/21/20 09:15 06/23/20 07:23 IVCONT Not Given .[id number] ANDREW Multivitamins 17 ml/ Trace 1,200 mls @ 50 mls/hr 06/22/20 18:00 06/22/20 18:06 Metals 1.7 ml/ Amino Acids/ IV 06/23/20 17:59 50 mls/hr Electrolytes DAILY@1800 ANDREW Administration Lisinopril 40 mg 06/12/20 12:40 06/23/20 09:03 Lisinopril 40 Mg Tablet PO 40 mg DAILY ANDREW Administration Protocol Lorazepam 1 mg 06/15/20 15:00 06/23/20 06:13 Lorazepam 2 Mg/Ml Vial IVPUSH 1 mg Q8H ANDREW Administration Ondansetron HCl 4 mg 06/05/20 15:00 06/22/20 22:02 Ondansetron Hcl 4 Mg/2 Ml Vial IVPUSH 4 mg Q8H ANDREW Administration Quetiapine Fumarate 50 mg 06/08/20 09:00 06/23/20 09:03 Quetiapine Fumarate 50 Mg Tablet PO 50 mg DAILY ANDREW Administration Quetiapine Fumarate 200 mg 06/07/20 21:00 06/21/20 22:16 Quetiapine Fumarate 200 Mg Tablet PO 200 mg BEDTIME ANDREW Administration Sodium Chloride 3 ml 06/05/20 16:00 06/23/20 07:16 0.9 % Sodium Chloride Flush 3 Ml Syringe IVFLUSH Not Given QSHIFT ANDREW Sucralfate 1 gm 06/14/20 14:15 06/23/20 09:03 Sucralfate Oral Suspension 1 Gm/10 Ml Oral.Susp PO 1 gm BID ANDREW Administration Time Spent With Patient Time: Total time spent is greater than 50% in coordination of care (as documented) at patient's floor/unit and/or counseling patient: Time with patient: less than 15 minutes Procedures Date of Service Date of Service: 06/23/20
--- NOTE | 2020-06-23 09:35 | MHC.CM.PN ---
Addendum entered by Allison Hilton 06/23/20 12:49: KHAI FROM [facility] CAME TO DO A PRE TEACH WITH PATIENT , PATIENT HAS NAME CARD AND IF ANY QUESTIONS CAN CALL HER ,KHAI CONFIR,ED WITH JAKOB THAT THE TPN AND ALL SUPPLIES WILL BE DELIVERED 5PM AND NURSING TO THEN GO AND DO ASSESSMENT AND START TPN INFUSION WITH TEACH PATIENT TO ALSO SELF RESUME HER MENTAL HEALTH COUNSELING WITH HER THEARPIST Original Note: NURSE PLANNED GIVING OFFICER NOTE ELECTRONIC MEDICAL RECORD REVIEWED ALONG WITH CASE DISCUSSED WITH STAFF NURSE AND JOHNSON PATIENT WILL BE DISCHARGED HOME TODAY WITH [facility] INFUSION -SUPPLIER FOR TPN AND PIC LINE FLUSH CARE THEY WILL COME [facility] AND PROVIDE TEACHING, THEN PATIENT WILL BE DISCHARGED COMFORT CARE PLUS WILL THEN PROVIDE THE NURSING SERVICES FOR LABS , PIC LINE FLUSHES AND PIC LINE DRESSING CHANGES (THEY WILL COORDINATE TIME OF VISIIT WITH [facility] DEIVERY OF ALL SUPPLIES ,TPN PCP DR SHAZIA BENITEZ PT INSTRUCTED TO CALL FOR [facility] DISCHARGE FOLLOW UP TRANSPORTATION FASMILY SURGEON
--- NOTE | 2020-06-23 10:17 | P.F2F_ITS ---
Service Date Service Date: 06/23/20 Reasons for Services Homebound: Patient being discharged home with VNA care and home infusion services. Has a PICC line placed and is receiving total parenteral nutrition. Leaving the home is medically contraindicated at this time without the asist of a device and/or another person due the listed conditions above and below. Certification: Based on the above findings, I certify that this patient is confined to the home and needs intermittent penitentiary care, physical therapy and/or speech therapy, or continues to need occupational therapy. The patient is under my care, and I have initiated the establishment of the plan of care. The patient will be followed by a physician who will periodically review the plan of care.
--- NOTE | 2020-06-23 10:19 | HO.POSTANES ---
Post Anesthesia Evaluation Post Anesthesia Evaluation Vital Signs: Vital Signs Temp Pulse Resp BP Pulse Ox 06/23/20 07:25 97.6 F 68 19 144/82 H 98 06/23/20 04:00 98.9 F 73 17 156/71 H 97 06/23/20 00:00 99.3 F 96 16 160/81 H 94 Anesthesia: Monitored Mental Status: Awake Pain Control: Satisfactory Nausea/Vomiting: None Hydration: Adequate Anesthesia-Related Issues: No Anes. Related Issues
[2020-06-23 11:56] VITALS: BP 121/56; PULSE 74; RESP 17; TEMP 36.3; O2SAT 96
[2020-06-23] MEDS: cefTRIAXone sodium 1 GM in 0.9 % Sodium Chloride 50 ML IV (11:57)
== END 2020-06-23 13:20 | disposition home health service (06) | DRG 394 ==
LOC: HO.S3 15:03
PROVIDERS: Physician Assistant; Admitting Provider Surgery; PCP Internal Medicine; Visit Provider Surgery
PROC: 0DJ08ZZ Inspection of Upper Intestinal Tract, Via Natural or Artificial Opening Endoscopic (ICD-10-PCS; CPT 43235; principal; 2020-06-22 12:40)
DX: K91.89 Other postprocedural complications and disorders of digestive system (principal); K91.2 Postsurgical malabsorption, not elsewhere classified; K91.0 Vomiting following gastrointestinal surgery; E87.6 Hypokalemia; F41.9 Anxiety disorder, unspecified; Z68.39 Body mass index [BMI] 39.0-39.9, adult; E66.01 Morbid (severe) obesity due to excess calories; Z98.84 Bariatric surgery status; Z88.2 Allergy status to sulfonamides; Z79.899 Other long term (current) drug therapy
CPT/HCPCS: 36415; 36573; 74160; 80048; 80053; 80061; 81001; 81003; 82040; 82947; 83735; 84100; 84132; 84478; 85025; 87086; 87088; 87186; 99212; C1726; C1751; J0131; J0696; J1100; J1170; J1200; J1885; J2060; J2250; J2405; J2550; J2765; J3010; J3475; Q9967

== ENCOUNTER → 2020-06-30 12:54 | Outpatient (BNVA) | payer OTHER, SELFPAY | PROVIDERS: Visit Provider Physician Assistant | DX: Z98.84 Bariatric surgery status (principal); Z68.37 Body mass index [BMI] 37.0-37.9, adult; Z71.3 Dietary counseling and surveillance | CPT/HCPCS: 99212 ==

== ENCOUNTER → 2020-07-03 14:15 | Outpatient (BNVA) | payer OTHER, SELFPAY | PROVIDERS: PCP Internal Medicine; Visit Provider Physician Assistant | DX: K91.2 Postsurgical malabsorption, not elsewhere classified (principal); E66.3 Overweight; Z68.37 Body mass index [BMI] 37.0-37.9, adult; Z90.3 Acquired absence of stomach [part of]; Z98.84 Bariatric surgery status; Z78.9 Other specified health status; Z71.3 Dietary counseling and surveillance | CPT/HCPCS: 99212 ==

== ENCOUNTER 2020-07-08 07:33 | Day surgery (SDC) | payer OTHER, SELFPAY ==
--- NOTE | 2020-07-07 16:05 | MHC.SHP ---
Pre-Procedural Eval Section B Chief Complaint: Bariatric Surgery Status Allergies: Allergies Allergy/AdvReac Type Severity Reaction Status Date / Time Iodinated Contrast Media Allergy Severe Shortness Verified 07/03/20 14:28 of Breath sulfamethoxazole Allergy Severe Rash Verified 07/03/20 14:28 [From Bactrim] trimethoprim [From Bactrim] Allergy Severe Rash Verified 07/03/20 14:28 hydrocodone Allergy Rash Verified 07/03/20 14:28 Plan I have reviewed the history and physical and performed a pertinent physical examination on my patient. No changes have occurred unless specified.
--- NOTE | 2020-07-08 08:37 | HO.ANESPROP2 ---
HPI - Anesthesia Eval Consult details Narrative: 64yo female patient here for EGD, balloon dilatation of stricture PMFSH Active Problems Active Problems: All Active Problems (Updated 07/01/20 @ 00:01 by Caleb Conti) S/P gastric bypass (Acute) On total parenteral nutrition (TPN) (Acute) Intestinal malabsorption following gastrectomy (Acute) Hx of endoscopy (Acute) PICC (peripherally inserted central catheter) removal (Acute) Nausea (Acute) HTN (hypertension), benign (Acute) Hypokalemia (Acute) Morbid obesity due to excess calories (Acute) Edema (Acute) Past Medical History Medical History (Updated 07/08/20 @ 08:53 by Petra Vázquez) Anxiety Arthritis Asthma BMI 40.0-44.9, adult BMI 45.0-49.9, adult COVID-19 vaccine administered Depression Edema Emesis HTN (hypertension) Hypercholesterolemia Intestinal malabsorption following gastrectomy Nausea Nausea and vomiting On total parenteral nutrition (TPN) PICC (peripherally inserted central catheter) removal Pre-op evaluation Shortness of breath Urinary tract infection Uterine anomaly Vitamin B1 deficiency Vitamin D deficiency Family History Family History Father Heart problem Heart attack Mother CHF (congestive heart failure) Hypertension High cholesterol Diabetes mellitus Knee problem Sister High cholesterol Hypertension Sister Hypertension Diabetes mellitus COPD (chronic obstructive pulmonary disease) Sister Heart problem Heart attack Diabetes mellitus Hypertension Wheelchair bound Morbidly obese Sister COPD (chronic obstructive pulmonary disease) Son No problems noted. Son Heart problem Heart attack Hypertension Diabetes mellitus Daughter Hypertension Anxiety Family history of problems with anesthesia: No Surgical History Surgical History Bilateral bunions History of arthroscopy of both knees History of bladder surgery History of repair of hiatal hernia History of sleeve gastrectomy Hx of appendectomy Hx of cholecystectomy Hx of endoscopy Previous back surgery S/P gastric bypass S/P laparoscopic sleeve gastrectomy History of Problems with Anesthesia: No Social History Social History Household Members: None Housing: Apartment Are you a primary critical care registered nurse to a significant other at home: No Do you presently have visiting nurse or other home services: No Alcohol intake: never Patient Tobacco Use Status: Never used Tobacco Second Hand Smoke Exposure: No Use of substances other than those prescribed or required for medical reasons: No Are you DNR?: No Advance Directives: No Advance Directives Information Provided: Yes Advance Directives on File: No service: No Current occupational status: disabled Meds Allergies Allergy/AdvReac Type Severity Reaction Status Date / Time Iodinated Contrast Media Allergy Severe Shortness Verified 07/03/20 14:28 of Breath sulfamethoxazole Allergy Severe Rash Verified 07/03/20 14:28 [From Bactrim] trimethoprim [From Bactrim] Allergy Severe Rash Verified 07/03/20 14:28 hydrocodone Allergy Rash Verified 07/03/20 14:28 Home Medications Medication Instructions Recorded Confirmed Last Taken Type amlodipine 10 mg tablet 10 mg PO DAILY 03/13/20 06/30/20 06/03/20 05:00 History atorvastatin 40 mg tablet 40 mg PO DAILY 03/13/20 06/30/20 Unknown History citalopram 40 mg tablet 20 mg PO DAILY 03/13/20 06/30/20 06/03/20 05:00 History clonazepam 1 mg tablet 1 mg PO BEDTIME 03/13/20 06/30/20 Unknown History hydrochlorothiazide 25 mg tablet 25 mg PO DAILY 03/13/20 06/30/20 Unknown History lisinopril 40 mg tablet 40 mg PO DAILY 03/13/20 06/30/20 Unknown History oxcarbazepine 300 mg tablet 300 mg PO BID 03/13/20 06/30/20 06/03/20 05:00 History quetiapine 50 mg tablet 50 mg PO BEDTIME 03/13/20 06/30/20 Unknown History albuterol sulfate 90 mcg/actuation 1 inh INHALATION QID PRN 05/04/20 06/30/20 Unknown History aerosol inhaler albuterol sulfate 2.5 mg INHALATION Q4H PRN 05/26/20 06/30/20 Unknown History quetiapine [Seroquel] 200 mg PO BEDTIME 05/26/20 06/30/20 Unknown History Exam Exam Date and Time: July 08, 2020 0837 Height,Weight and Vital Signs: Vital Signs Temp Pulse Resp BP Pulse Ox 07/08/20 08:51 96.9 F 81 16 156/85 H 96 Airway Mallampati Class: II TM Dist: >3cm Neck ROM: Full Heart: RRR Lungs: CTAB Assessment and Plan Assessment Anesthesia Assessment: Anesthesia Plan Discussed and Chart Reviewed Final Anesthetic Review NPO: Yes ASA Class: III Final Preanesthetic Review: No Changes in Pt Med Stat, Meds/Allgs Chart Reviewed, Consent Obtained/Reviewed and Anes Risks/Benef Reviewed Patient Risk: Intermediate Procedure Risk: Low Assessment/Block/Sedation in SS: Assess/Block/Sedation-SS Anesthetic Plan Anesthetic Plan: MAC: Disposition: Standard PACU
--- NOTE | 2020-07-08 08:37 | PM.OP ---
Brief Operative Note Date of Service: 07/08/20 Pre-op diagnosis: Gastrojejunal anastomotic stenosis Post-op diagnosis: same Procedure: Esophagogastroduodenoscopy, balloon dilation of anastomotic stenosis with through the scope balloon with the 10-12 mm balloon and the 12-15 mm balloon Implants: None Surgeon: Luz Brewer MD Anesthesia: MAC Was an Barrel Ribs Solderer used for this Procedure?: No Estimated blood loss (mL): 0 Pathology: none sent Condition: stable Disposition: PACU
[2020-07-08 08:51] VITALS: BP 156/85; PULSE 81; RESP 16; TEMP 36.1; O2SAT 96; BMI 37.6
[2020-07-08] MEDS: Lactated Ringers 1,000 ML 50 ML IV (08:54)
[2020-07-08] MEDS: Scopolamine 1.5 MG PATCH.TD.3 EAR-BEHIND (08:54)
[2020-07-08 09:00] LABS: COVID-19 Test Negative (Negative)
[2020-07-08 09:47] VITALS: BP 137/72; PULSE 94; RESP 12; TEMP 36.9; O2SAT 97
[2020-07-08] MEDS: ondansetron HCL 4 MG/2 ML VIAL IVPUSH (09:57)
[2020-07-08 09:58] VITALS: BP 152/111; PULSE 87; RESP 16; O2SAT 100
[2020-07-08 10:16] VITALS: BP 127/84; PULSE 83; RESP 16; O2SAT 100
[2020-07-08 10:40] VITALS: BP 149/55; PULSE 86; RESP 18; O2SAT 98
[2020-07-08 10:56] VITALS: BP 154/77; PULSE 72; RESP 18; O2SAT 97
--- NOTE | 2020-07-08 11:31 | OP_ITS ---
SURGEON: Luz Brewer MD PREOPERATIVE DIAGNOSIS: POSTOPERATIVE DIAGNOSIS: PROCEDURE PERFORMED: Esophagogastrojejunoscopy and balloon dilation with lbcdvfp-[id number]-vazag balloon with the 10 to 12 mm balloon and 12 to 15 mm balloon. ESTIMATED BLOOD LOSS: COMPLICATIONS: None. ANESTHESIA: ASSISTANTS: SPECIMENS: PREPROCEDURE DIAGNOSIS: Gastrojejunal stenosis, status post gastric bypass. POSTPROCEDURE DIAGNOSIS: Gastrojejunal stenosis, status post gastric bypass. CONDITION: Postprocedure, good. FINDINGS: Stenosis at the gastrojejunal anastomosis. The anastomosis was stenosed to about 10 mm in size. The rest of the anatomy from the gastric bypass appeared to be normal. DESCRIPTION OF PROCEDURE: The patient was brought into the operating room on the stretcher and placed in left lateral decubitus position. A safety time-out was performed. A bite block was placed between the teeth. Total intravenous anesthesia was administered using propofol by the nurse senior product analyst. Once the patient was adequately sedated, the gastroscope was placed into posterior oropharynx, passed down the esophagus, evaluating the esophageal mucosa which was normal. The GE junction was located at 36 cm from the incisors. Anastomosis was located at 42 cm from the incisors. The anastomosis was stenotic to about 10 mm in size. There was a significant amount of food within the stomach. The food appeared to be fibrous in nature such as cabbage or other green vegetable in addition to baked potato consistency material. A tdthuow-tfc-grcaf balloon was placed through the endoscope and placed across the stenosis. This was a 10 to 12 mm balloon. It was blown up to 10 mm and left up for 1 minute, then up to 11 mm and left it for an additional minute, and then lastly to 12 mm and left it for an additional minute. We took the balloon down and removed from the scope. I was able to easily traverse the anastomosis into the Indra limb. I performed an enteroscopy for short distance. I then retracted the scope back into the gastric pouch and then placed a 12 to 15 mm ortawqt-[id number]-qrfgh balloon through the scope and placed it across the anastomosis and blew the balloon up to 13.5 mm in size and left it there for 1 minute and then up to 15 mm and left it there for an additional minute and then we took the balloon down. We removed the balloon from the scope. I was able to easily cross the anastomosis without any difficulty. There was no significant bleeding. The visible stitch was seen on the jejunal surface of the anastomosis, which we did not remove. We desufflated the small bowel component and then retracted the scope back into the stomach. I was able to push the food from the stomach into the small bowel without any difficulty. I then desufflated the gastric pouch, removed the gastroscope without difficulty. The patient tolerated the procedure well and was sent to recovery room in stable condition. MD PRAVEEN Melton/JOVANI / [id number]
== END 2020-07-08 12:10 | disposition home or self-care (01) ==
PROVIDERS: PCP Internal Medicine; Visit Provider Surgery
PROC: 0DJ08ZZ Inspection of Upper Intestinal Tract, Via Natural or Artificial Opening Endoscopic (ICD-10-PCS; CPT 43235; principal; 2020-07-08 09:10)
DX: K91.89 Other postprocedural complications and disorders of digestive system (principal); K31.89 Other diseases of stomach and duodenum; K90.9 Intestinal malabsorption, unspecified; Z98.84 Bariatric surgery status; E66.01 Morbid (severe) obesity due to excess calories; Z68.42 Body mass index [BMI] 45.0-49.9, adult; I10 Essential (primary) hypertension; J45.909 Unspecified asthma, uncomplicated; Z79.899 Other long term (current) drug therapy
CPT/HCPCS: 43245; 36415; 87635; C1726; J2250; J2405; J2550

== ENCOUNTER → 2020-07-17 09:17 | Outpatient (BNVA) | payer OTHER, SELFPAY | PROVIDERS: PCP Internal Medicine; Visit Provider Physician Assistant | DX: K91.2 Postsurgical malabsorption, not elsewhere classified (principal); Z90.3 Acquired absence of stomach [part of]; Z98.84 Bariatric surgery status; Z78.9 Other specified health status | CPT/HCPCS: 99212 ==

== ENCOUNTER → 2020-07-23 10:55 | Outpatient (BNVA) | payer OTHER, SELFPAY | PROVIDERS: PCP Internal Medicine; Visit Provider Physician Assistant ==

== ENCOUNTER 2020-07-29 06:22 | Day surgery (SDC) | payer OTHER, SELFPAY ==
[2020-07-23 10:34] VITALS: BMI 38.2
--- NOTE | 2020-07-28 11:13 | HO.ANESPROP2 ---
Documented by User: Caroline Wade 07/28/20 11:15 HPI - Anesthesia Eval Consult details Narrative: 64yo female patient here for EGD, balloon dilatation of stricture s/p gastric bypass/sleeve revision 05/2020 Last EGD 07/08/20 with MAC PMFSH Active Problems Active Problems: All Active Problems (Updated 07/08/20 @ 08:53 by Petra Vázquez) Morbid obesity due to excess calories (Acute) Hypokalemia (Acute) HTN (hypertension), benign (Acute) Nausea and vomiting (Acute) S/P gastric bypass (Acute) On total parenteral nutrition (TPN) (Acute) Intestinal malabsorption following gastrectomy (Acute) Hx of endoscopy (Acute) PICC (peripherally inserted central catheter) removal (Acute) Nausea (Acute) Edema (Acute) Past Medical History Medical History Anxiety Arthritis Asthma BMI 40.0-44.9, adult BMI 45.0-49.9, adult COVID-19 vaccine administered Depression Edema Emesis HTN (hypertension) Hypercholesterolemia Intestinal malabsorption following gastrectomy Nausea Nausea and vomiting On total parenteral nutrition (TPN) PICC (peripherally inserted central catheter) removal Pre-op evaluation Shortness of breath Urinary tract infection Uterine anomaly Vitamin B1 deficiency Vitamin D deficiency Family History Family History Father Heart problem Heart attack Mother CHF (congestive heart failure) Hypertension High cholesterol Diabetes mellitus Knee problem Sister High cholesterol Hypertension Sister Hypertension Diabetes mellitus COPD (chronic obstructive pulmonary disease) Sister Heart problem Heart attack Diabetes mellitus Hypertension Wheelchair bound Morbidly obese Sister COPD (chronic obstructive pulmonary disease) Son No problems noted. Son Heart problem Heart attack Hypertension Diabetes mellitus Daughter Hypertension Anxiety Family history of problems with anesthesia: No Surgical History Surgical History Bilateral bunions History of arthroscopy of both knees History of bladder surgery History of repair of hiatal hernia History of sleeve gastrectomy Hx of appendectomy Hx of cholecystectomy Hx of endoscopy Previous back surgery S/P gastric bypass S/P laparoscopic sleeve gastrectomy History of Problems with Anesthesia: No Social History Social History Household Members: None Housing: Apartment Are you a primary patient care nursing assistant to a significant other at home: No Do you presently have visiting nurse or other home services: No Alcohol intake: never Patient Tobacco Use Status: Never used Tobacco Second Hand Smoke Exposure: No Use of substances other than those prescribed or required for medical reasons: No Advance Directives Information Provided: No service: No Current occupational status: disabled Meds Allergies Allergy/AdvReac Type Severity Reaction Status Date / Time Iodinated Contrast Media Allergy Severe Shortness Verified 07/23/20 11:12 of Breath sulfamethoxazole Allergy Severe Rash Verified 07/23/20 11:12 [From Bactrim] trimethoprim [From Bactrim] Allergy Severe Rash Verified 07/23/20 11:12 hydrocodone Allergy Rash Verified 07/23/20 11:12 Home Medications Medication Instructions Recorded Confirmed Last Taken Type amlodipine 10 mg tablet 10 mg PO DAILY 03/13/20 06/30/20 06/03/20 05:00 History atorvastatin 40 mg tablet 40 mg PO DAILY 03/13/20 06/30/20 Unknown History citalopram 40 mg tablet 20 mg PO DAILY 03/13/20 06/30/20 06/03/20 05:00 History clonazepam 1 mg tablet 1 mg PO BEDTIME 03/13/20 06/30/20 Unknown History hydrochlorothiazide 25 mg tablet 25 mg PO DAILY 03/13/20 06/30/20 Unknown History lisinopril 40 mg tablet 40 mg PO DAILY 03/13/20 06/30/20 Unknown History oxcarbazepine 300 mg tablet 300 mg PO BID 03/13/20 06/30/20 06/03/20 05:00 History quetiapine 50 mg tablet 50 mg PO BEDTIME 03/13/20 06/30/20 Unknown History albuterol sulfate 90 mcg/actuation 1 inh INHALATION QID PRN 05/04/20 06/30/20 Unknown History aerosol inhaler albuterol sulfate 2.5 mg INHALATION Q4H PRN 05/26/20 06/30/20 Unknown History quetiapine [Seroquel] 200 mg PO BEDTIME 05/26/20 06/30/20 Unknown History Exam Exam Date and Time: July 28, 2020 1113 Height,Weight and Vital Signs: Height 4 ft 10 in Weight 82.917 kg Pertinent Lab Results Pertinent Lab Results: Laboratory Tests 06/18/20 06/23/20 Unknown 04:20 WBC 4.6 L Hgb 12.6 Hct 36.7 L Plt Count 282 Sodium 140 Potassium 4.1 Chloride 106 Carbon Dioxide 27 BUN 7 L Creatinine 0.61 Assessment and Plan Assessment Anesthesia Assessment: Chart Reviewed Documented by User: Petra Vázquez 07/29/20 08:10 [facility] Past Medical History Medical History Anxiety Arthritis Asthma BMI 40.0-44.9, adult BMI 45.0-49.9, adult COVID-19 vaccine administered Depression Edema Emesis HTN (hypertension) Hypercholesterolemia Intestinal malabsorption following gastrectomy Nausea Nausea and vomiting On total parenteral nutrition (TPN) PICC (peripherally inserted central catheter) removal Pre-op evaluation Shortness of breath Urinary tract infection Uterine anomaly Vitamin B1 deficiency Vitamin D deficiency Family History Family History Father Heart problem Heart attack Mother CHF (congestive heart failure) Hypertension High cholesterol Diabetes mellitus Knee problem Sister High cholesterol Hypertension Sister Hypertension Diabetes mellitus COPD (chronic obstructive pulmonary disease) Sister Heart problem Heart attack Diabetes mellitus Hypertension Wheelchair bound Morbidly obese Sister COPD (chronic obstructive pulmonary disease) Son No problems noted. Son Heart problem Heart attack Hypertension Diabetes mellitus Daughter Hypertension Anxiety Surgical History Surgical History Bilateral bunions History of arthroscopy of both knees History of bladder surgery History of repair of hiatal hernia History of sleeve gastrectomy Hx of appendectomy Hx of cholecystectomy Hx of endoscopy Previous back surgery S/P gastric bypass S/P laparoscopic sleeve gastrectomy Social History Social History Household Members: None Housing: Apartment Are you a primary patient care nursing assistant to a significant other at home: No Do you presently have visiting nurse or other home services: No Alcohol intake: never Patient Tobacco Use Status: Never used Tobacco Second Hand Smoke Exposure: No Use of substances other than those prescribed or required for medical reasons: No Advance Directives Information Provided: No service: No Current occupational status: disabled Meds Allergies Allergy/AdvReac Type Severity Reaction Status Date / Time Iodinated Contrast Media Allergy Severe Shortness Verified 07/23/20 11:12 of Breath sulfamethoxazole Allergy Severe Rash Verified 07/23/20 11:12 [From Bactrim] trimethoprim [From Bactrim] Allergy Severe Rash Verified 07/23/20 11:12 hydrocodone Allergy Rash Verified 07/23/20 11:12 Home Medications Medication Instructions Recorded Confirmed Last Taken Type amlodipine 10 mg tablet 10 mg PO DAILY 03/13/20 06/30/20 06/03/20 05:00 History atorvastatin 40 mg tablet 40 mg PO DAILY 03/13/20 06/30/20 Unknown History citalopram 40 mg tablet 20 mg PO DAILY 03/13/20 06/30/20 06/03/20 05:00 History clonazepam 1 mg tablet 1 mg PO BEDTIME 03/13/20 06/30/20 Unknown History hydrochlorothiazide 25 mg tablet 25 mg PO DAILY 03/13/20 06/30/20 Unknown History lisinopril 40 mg tablet 40 mg PO DAILY 03/13/20 06/30/20 Unknown History oxcarbazepine 300 mg tablet 300 mg PO BID 03/13/20 06/30/20 06/03/20 05:00 History quetiapine 50 mg tablet 50 mg PO BEDTIME 03/13/20 06/30/20 Unknown History albuterol sulfate 90 mcg/actuation 1 inh INHALATION QID PRN 05/04/20 06/30/20 Unknown History aerosol inhaler albuterol sulfate 2.5 mg INHALATION Q4H PRN 05/26/20 06/30/20 Unknown History quetiapine [Seroquel] 200 mg PO BEDTIME 05/26/20 06/30/20 Unknown History Exam Height,Weight and Vital Signs: Vital Signs Temp Pulse Resp BP Pulse Ox 07/29/20 07:03 98.6 F 67 16 121/71 97 Pertinent Lab Results Pertinent Lab Results: Lab Results 07/29/20 Range/Units 06:56 COVID-19 (SILVIA) Negative (Negative) COVID-19 Clin Com See Note Airway Mallampati Class: II TM Dist: >3cm Neck ROM: Full Heart: RRR Lungs: CTAB Assessment and Plan Assessment Anesthesia Assessment: Anesthesia Plan Discussed and Chart Reviewed Final Anesthetic Review NPO: Yes ASA Class: III Final Preanesthetic Review: No Changes in Pt Med Stat, Meds/Allgs Chart Reviewed, Consent Obtained/Reviewed and Anes Risks/Benef Reviewed Patient Risk: Intermediate Procedure Risk: Low Assessment/Block/Sedation in SS: Assess/Block/Sedation-SS Anesthetic Plan Anesthetic Plan: MAC: Disposition: Standard PACU
--- NOTE | 2020-07-28 13:30 | MHC.SHP ---
Pre-Procedural Eval Section B Chief Complaint: Bariatric Surgery Status Allergies: Allergies Allergy/AdvReac Type Severity Reaction Status Date / Time Iodinated Contrast Media Allergy Severe Shortness Verified 07/23/20 11:12 of Breath sulfamethoxazole Allergy Severe Rash Verified 07/23/20 11:12 [From Bactrim] trimethoprim [From Bactrim] Allergy Severe Rash Verified 07/23/20 11:12 hydrocodone Allergy Rash Verified 07/23/20 11:12 Plan I have reviewed the history and physical and performed a pertinent physical examination on my patient. No changes have occurred unless specified.
[2020-07-29] VITALS (8 sets, daily range): BP systolic 121–140; BP diastolic 60–106; PULSE 57–85; RESP 11–16; TEMP 35.9–37; O2SAT 97–100
--- NOTE | 2020-07-29 07:13 | PC.NURSE ---
Gold butterfly earrings removed and placed in labeled patient bag and put in patients red nike bag. Red yarn bracelet left on during procedure.
[2020-07-29 07:21] LABS: COVID-19 Test Negative (Negative); IDNOW Serial# 9DD0AD1C
[2020-07-29] MEDS: Lactated Ringers 1,000 ML 100 ML IVCONT (07:25)
[2020-07-29] MEDS: ondansetron HCL 4 MG/2 ML VIAL IVPUSH (08:28)
--- NOTE | 2020-07-29 08:36 | PM.OP ---
Brief Operative Note Date of Service: 07/29/20 Pre-op diagnosis: Anastomotic stenosis Post-op diagnosis: same Procedure: Esophagogastrojejunostomy, through the scope balloon dilation of stenosis with a 12-15 mm balloon and next a 15-18 mm balloon, enteroscopy to 90 cm from the incisors Implants: None Surgeon: Luz Brewer MD Anesthesia: MAC Was an Fundraising Sale Representative used for this Procedure?: No Estimated blood loss (mL): 0 Pathology: none sent Condition: stable Disposition: PACU
--- NOTE | 2020-07-29 09:55 | OP_ITS ---
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 PROCEDURE PERFORMED: Esophagogastrojejunoscopy with balloon dilation of the anastomotic stricture with tjtiusk-fgn-nzuap balloon, first of a 12-15 mm balloon and second of a 15-18 mm balloon and also an enteroscopy to 90 cm from incisors. ESTIMATED BLOOD LOSS: COMPLICATIONS: None. ANESTHESIA: Total intravenous anesthesia with propofol given by the nurse filtering machine tender helper. ASSISTANTS: SPECIMENS: FINDINGS: An anastomotic stricture with opening of the anastomosis about 10 mm in size. Again, there were sutures that were seen on the jejunal surface of the anastomosis. There was no evidence of ulceration. There was slight erythema around the stenosis. The gastric pouch looked normal in size. There was no evidence of hiatal hernia. The jejunum also appeared to be normal without ulceration. CONDITION: Postprocedure, good. DESCRIPTION OF PROCEDURE: The patient was brought into the operating room on the stretcher and placed in the left lateral decubitus position. A safety time-out was performed. A bite block was placed between the teeth. Total intravenous anesthesia was administered using propofol by the nurse filtering machine tender helper. Once the patient was adequately sedated, gastroscope was placed in the posterior oropharynx, passed down the esophagus, evaluating esophageal mucosa which was normal. There was no evidence of hiatal hernia. Gastroscope was easily passed into the gastric pouch, which was normal in size for her age. There were no mucosal lesions. The anastomosis was located at the distal gastric pouch and was stenosed to about 10 mm in size. We placed a 12-15 mm ipeorcv-ncc-nwaav balloon across the anastomosis and blew up the balloon to 12 mm and left it there for 1 minute and then increased it to 13.5 mm and left it there for an additional minute and then up to 15 mm and left it there for an additional minute. We removed the 12-15 mm balloon and we were easily able to traverse the anastomosis without any difficulty. I passed the gastroscope into the efferent limb of the Indra limb and evaluated the small intestine down to 90 cm from incisors, all of which was normal. All these portions of upper endoscopy were documented using photo documentation. Gastroscope was passed back into the gastric pouch and a 15-18 mm balloon was placed through the scope across the anastomosis and blown up to 16.5 mm and left there for 1 minute and then up to 18 mm and left there for an additional minute. The endoscopic balloon was then taken down and removed from the scope. Again, I was easily able to traverse the anastomosis, which was widely patent. There was no evidence of any active bleeding. We desufflated the gastric pouch and removed the gastroscope without difficulty. The patient tolerated the procedure well and was in stable condition prior to transfer to recovery room. TRAINING AND DEVELOPMENT OFFICER: None. MD PRAVEEN eMlton/MODL / [id number]
== END 2020-07-29 11:06 | disposition home or self-care (01) ==
PROVIDERS: PCP Internal Medicine; Visit Provider Surgery
PROC: 0DJ08ZZ Inspection of Upper Intestinal Tract, Via Natural or Artificial Opening Endoscopic (ICD-10-PCS; CPT 43235; principal; 2020-07-29 07:30)
DX: K95.89 Other complications of other bariatric procedure (principal); K56.699 Other intestinal obstruction unspecified as to partial versus complete obstruction; K91.2 Postsurgical malabsorption, not elsewhere classified; Y83.8 Other surgical procedures as the cause of abnormal reaction of the patient, or of later complication, without mention of misadventure at the time of the procedure; Y92.9 Unspecified place or not applicable; Z90.3 Acquired absence of stomach [part of]; Z98.84 Bariatric surgery status; E66.01 Morbid (severe) obesity due to excess calories; Z68.41 Body mass index [BMI] 40.0-44.9, adult; I10 Essential (primary) hypertension; Z20.822 Contact with and (suspected) exposure to COVID-19; Z91.041 Radiographic dye allergy status; Z88.2 Allergy status to sulfonamides; Z88.8 Allergy status to other drugs, medicaments and biological substances; Z90.49 Acquired absence of other specified parts of digestive tract
CPT/HCPCS: 43245; 36415; 87635; C1726; J0131; J2405

== ENCOUNTER → 2020-08-07 08:34 | Outpatient (BNVA) | payer OTHER, SELFPAY | PROVIDERS: PCP Internal Medicine; Visit Provider Dietitian, Registered | DX: E66.9 Obesity, unspecified (principal); Z68.37 Body mass index [BMI] 37.0-37.9, adult | CPT/HCPCS: 97803 ==

== ENCOUNTER 2020-08-28 09:41 | Outpatient (REF) | payer OTHER, SELFPAY ==
[2020-08-28 11:49] LABS: MANUAL DIFF FLAG NO
[2020-08-28 11:55] LABS: Basophils Percent Auto 0.3 % (0-2); Eosinophils Absolute Auto 0.2 X10*3/uL (0.0-0.4); Eosinophils Percent Auto 2.4 % (0-4); Hematocrit 40.5 % (37-47); Hemoglobin 13.3 g/dl (12.0-16.0); Imm Gran Abs Auto 0.02 X10*3/uL (0.00-0.03); Imm Gran Pct Auto 0.3 % (0.0-0.4); Lymphocytes Absolute Auto 2.8 X10*3/uL (1.2-4.9); Lymphocytes Percent Auto 44.9 % (20-40); Mean Corpuscular HGB Conc 32.8 g/dl (31.0-35.0); Mean Corpuscular Hemoglobin 29.1 pg (27.0-33.0); Mean Corpuscular Volume 88.6 fL (80-98); Mean Platelet Volume 10.7 fL (9.4-12.3); Monocytes Absolute Auto 0.4 X10*3/uL (0.1-1.2); Monocytes Percent Auto 6.3 % (2-11); Neutrophils Absolute Auto 2.9 X10*3/uL (2.0-8.3); Neutrophils Percent Auto 45.8 % (45-73); Platelet Count 265 X10*3/uL (160-400); Red Blood Count 4.57 X10*6/uL (4.20-5.50); Red Cell Distribution Width 13.4 % (11.0-16.0); White Blood Count 6.3 X10*3/uL (4.8-10.8)
[2020-08-28 12:48] LABS: Vitamin B12 344 pg/mL (200-900)
[2020-08-28 13:32] LABS: Alanine Aminotransferase 27 U/L (0-31); Albumin Level 4.2 g/dL (3.5-5.0); Alkaline Phosphatase 102 U/L (39-117); Anion Gap 16 (12-20); Aspartate Amino Transferase 30 U/L (5-31); Bilirubin Direct 0.4 mg/dL (0.0-0.5); Bilirubin Total 1.1 mg/dL (0.0-1.0); Blood Urea Nitrogen 8 mg/dL (9-16); Calcium 9.7 mg/dL (8.4-10.2); Carbon Dioxide 25 mmol/L (22-29); Chloride 107 mmol/L (96-108); Estimated Glomerular Filt Rate > 60; Glucose Fasting 103 mg/dL (60-99); Phosphorus 4.3 mg/dL (2.7-4.5); Potassium 4.5 mmol/L (3.3-5.1); Sodium 143 mmol/L (135-145); Total Protein 7.2 g/dL (6.5-8.0); Triglycerides 147 mg/dL
[2020-09-02 01:46] LABS: Zinc 72 mcg/dL (60-130)
[2020-09-02 19:50] LABS: Vitamin A 29 mcg/dL (38-98)
[2020-09-07 07:11] LABS: Vitamin B1 10 nmol/L (8-30)
== END 2020-08-28 09:42 | disposition home or self-care (01) ==
LOC: HO.LAB 09:41
PROVIDERS: PCP Internal Medicine; Visit Provider Physician Assistant
DX: E66.9 Obesity, unspecified (principal); Z68.37 Body mass index [BMI] 37.0-37.9, adult; Z98.84 Bariatric surgery status; Z78.9 Other specified health status; Z71.3 Dietary counseling and surveillance
CPT/HCPCS: 36415; 80053; 80076; 82248; 82306; 82607; 82746; 83735; 84100; 84425; 84478; 84590; 84630; 85025; 99212

== ENCOUNTER → 2020-10-02 10:21 | Outpatient (BNVA) | payer OTHER, SELFPAY | PROVIDERS: PCP Internal Medicine; Referring Provider Internal Medicine; Visit Provider Dietitian, Registered | DX: E66.9 Obesity, unspecified (principal); E51.9 Thiamine deficiency, unspecified; E55.9 Vitamin D deficiency, unspecified; Z68.35 Body mass index [BMI] 35.0-35.9, adult; Z88.2 Allergy status to sulfonamides; Z88.8 Allergy status to other drugs, medicaments and biological substances; Z91.041 Radiographic dye allergy status; Z98.84 Bariatric surgery status | CPT/HCPCS: 97803 ==

== ENCOUNTER → 2020-11-04 14:12 | Outpatient (BNVA) | payer OTHER, SELFPAY | PROVIDERS: PCP Internal Medicine; Referring Provider Internal Medicine; Visit Provider Surgery | DX: E66.9 Obesity, unspecified (principal); Z68.34 Body mass index [BMI] 34.0-34.9, adult; Z98.84 Bariatric surgery status | CPT/HCPCS: 99212 ==

== ENCOUNTER → 2020-12-25 08:01 | Outpatient (BNVA) | payer OTHER, SELFPAY | PROVIDERS: PCP Internal Medicine; Visit Provider Dietitian, Registered ==

== ENCOUNTER → 2021-01-14 08:04 | Outpatient (BNVA) | payer OTHER, SELFPAY | PROVIDERS: PCP Internal Medicine; Visit Provider Dietitian, Registered | DX: E66.9 Obesity, unspecified (principal) | CPT/HCPCS: 97803 ==

== ENCOUNTER → 2021-03-09 13:59 | Outpatient (BNVA) | payer OTHER, SELFPAY | PROVIDERS: PCP Internal Medicine; Referring Provider Internal Medicine; Visit Provider Physician Assistant Surgical | DX: E66.9 Obesity, unspecified (principal); Z68.33 Body mass index [BMI] 33.0-33.9, adult | CPT/HCPCS: 99212 ==

== ENCOUNTER 2021-03-11 12:55 | Outpatient (REF) | payer MEDICARE, SELFPAY ==
[2021-03-11 14:40] LABS: Vitamin D 25-OH Total 14.6 ng/mL (>30)
== END 2021-03-11 12:56 | disposition home or self-care (01) ==
LOC: HO.LAB 12:55
PROVIDERS: PCP Internal Medicine; Visit Provider Surgery
DX: Z01.818 Encounter for other preprocedural examination (principal); E55.9 Vitamin D deficiency, unspecified
CPT/HCPCS: 36415; 82306